=== PATIENT | male | born 1950 | race Caucasian/White ===

== ENCOUNTER 2024-01-30 19:19 | Observation (INO) | payer MEDICARE, BC, SELFPAY ==
[2024-01-30 19:20] VITALS: BMI 33.0
[2024-01-30 19:59] VITALS: BP 128/84; PULSE 90; RESP 19; TEMP 36.8; O2SAT 98
--- NOTE | 2024-01-30 20:11 | XR_ITS ---
Examination: CT abdomen with intravenous contrast CT pelvis with intravenous contrast 2-D coronal reconstructions 2-D sagittal reconstructions Date and time of exam:January 31, 2024 0048 hrs. Indications: Constipation, no bowel movement 10 days, with abdominal pain 10 days. CTDI: vol (mGy) 13.5 DLP: (mGycm) 797 Technique: Multiple axial sections of the abdomen and pelvis have been obtained. 64 slice high-resolution scanner used. 3 mm axial sections have been obtained, post intravenous injection 60 cc Isovue-370 2-D sagittal, coronal reconstructions obtained. Low dose protocols were performed. One or more of the following dose reduction techniques were used; automated exposure control, adjustment of the mA and/or KV according to patient size, use of iterative reconstruction technique. Findings: Hepatomegaly 20 cm No focal liver or splenic lesion Contracted gallbladder No pancreatic or adrenal mass Mild bilateral renal parenchymal scar formation Bilateral renal cysts, the largest anterior lower pole left kidney 9.8 cm Mild dilatation left renal pelvis No hydronephrosis or ureteral calculi Abundant stool throughout the colon No pericecal inflammatory change A few loops of fluid distended small bowel in the right lower abdomen for instance image 101 Colonic diverticulosis, no diverticulitis Mild thickening of the rectal wall axial image 187 Transverse prostate dimension 4.9 cm Urinary bladder is contracted around a Randolph catheter, urinary bladder wall thickening at least 8 mm Prominent osteopenia Impression: Mild dilatation left renal pelvis, consider left urinary tract infection No renal or ureteral calculi, no hydronephrosis Abundant stool throughout the entire colon with thickening of the rectal wall which may be related to proctitis, but clinical correlation advised Urinary bladder is contracted, the urinary bladder wall measuring up to 8 mm, consider cystitis, early urinary tract outflow obstruction secondary to prostatomegaly
--- NOTE | 2024-01-30 20:13 | PD.EDRME ---
Rapid Medical Screening Exam RME Arrival date/time: 01/30/24 19:19 73M with history of HTN and DM presents to ED with 1.5 weeks of no BM (abnormal for patient) and ab pain, as well as 1 day of urinary retention. Patient had recent EGD/colonoscopy showing H. pylori. Colonoscopy normal. Chief Complaint: Abdominal Pain Vital signs: Vital Signs Temperature 98.2 F 01/30/24 19:59 Pulse Rate 90 01/30/24 19:59 Respiratory Rate 19 01/30/24 19:59 Blood Pressure 128/84 01/30/24 19:59 Pulse Oximetry (%) 98 01/30/24 19:59 Oxygen Delivery Method Room Air 01/30/24 19:59
[2024-01-30 20:38] LABS: Basophils % (Auto) 1 % (0-2.5); Eosinophils # (Auto) 0.1 Thou/mm3 (0.0-0.5); Eosinophils % (Auto) 2 % (0-10); Hematocrit 41.2 % (41.0-53.0); Hemoglobin 13.8 g/dL (13.5-16.0); Immature Granulocytes % (Auto) 5 % (0-0); Immature Granulocytes Auto 0.21 Thou/mm3 (0.00-0.00); Lymphocytes # (Auto) 1.1 Thou/mm3 (1.0-4.8); Lymphocytes % (Auto) 23 % (10-50); Mean Corpuscular HGB Conc 33.5 g/dl (31.0-37.0); Mean Corpuscular Volume 84 fL (80-100); Monocytes # (Auto) 0.5 Thou/mm3 (0.0-0.8); Monocytes % (Auto) 12 % (0-12); Neutrophils # (Auto) 2.6 Thou/mm3 (1.8-7.7); Neutrophils % (Auto) 58 % (37-80); Nucleated Red Blood Cell % 0 /100 WBC (0); Platelet Count 132 Thou/mm3 (140-440); RDW Standard Deviation 44.9 fL (35.1-43.9); Red Blood Count 4.92 Miln/mm3 (4.50-5.90); White Blood Count 4.5 Thou/mm3 (3.8-10.6)
[2024-01-30 21:05] LABS: Alanine Aminotransferase 37 U/L (10-49); Albumin, Serum 4.9 gm/dL (3.4-4.8); Albumin/Globulin Ratio 1.9 (1.2-2.2); Alkaline Phosphatase 96 U/L (46-116); Anion Gap 9 (7-16); Aspartate Amino Transferase 34 U/L (0-34); BUN/Creatinine Ratio 22 Ratio (12-20); Bilirubin,Total 0.7 mg/dL (0.3-1.2); Blood Urea Nitrogen 24 mg/dL (9-23); Calcium 10.7 mg/dL (8.3-10.6); Calcium (Corrected) 10.7 mg/dL (8.5-10.1); Carbon Dioxide 26.1 mMol/L (20.0-31.0); Chloride 102 mMol/L (98-107); Creatinine (Component) 1.1 mg/dL (0.6-1.3); Estimated Creatinine Clearance 74.5 mL/min (>60); Globulin 2.6 gm/dL (2.3-3.5); Glucose 133 mg/dL (74-106); Lipase 25 U/L (12-53); Osmolality,Calculated 279 (275-295); Potassium 4.5 mMol/L (3.4-5.1); Sodium 137 mMol/L (136-145); Total Protein 7.5 gm/dL (5.7-8.2); eGFR > 60 See Note
[2024-01-30 22:59] VITALS: BP 122/76; PULSE 97; RESP 19; TEMP 36.8; O2SAT 98
[2024-01-30 23:37] LABS: Collection Type, Urine Catheter; Squamous Epithelial Cell,Urine 0 /hpf (0-5)
[2024-01-30 23:48] LABS: Bilirubin,Urine Negative (Negative); Blood,Urine Negative (Negative); Clarity,Urine Clear (Clear/Hazy); Color,Urine Yellow (Lt Yel-Yel); Culture Indicated,Urine Not Indicated; Glucose, Urine Negative (Negative); Ketones,Urine Trace (Negative); Leukocyte Esterase,Urine Negative (Negative); Nitrite,Urine Negative (Negative); Protein,Urine 1+ (Neg - Trace); RBC,Urine 3 /hpf (0-3); Specific Gravity,Urine 1.023 (1.001-1.035); Urobilinogen,Urine Negative mg/dL (0.0-1.0); WBC,Urine 1 /hpf (0-5)
[2024-01-31] VITALS (11 sets, daily range): BP systolic 106–132; BP diastolic 61–80; PULSE 73–98; RESP 18–20; TEMP 36.4–36.9; O2SAT 93–96; BMI 32.1
[2024-01-31] MEDS: SODIUM CHLORIDE 0.9% 1000 ML 1,000 ML 500 ML IV (02:17)
--- NOTE | 2024-01-31 03:09 | PRELIM_ITS ---
CT scan of the abdomen and pelvis with intravenous contrast (axial sections with sagittal and coronal reformats) January 31, 2024 0043 hoursClinical History: No BM 1.5 weeks; gen abdominal pain.Compari son: None.Findings:The lung bases are clear. Small hiatus hernia.The liver, gallbladder, pancreas, sp kimberlee, and adrenals are unremarkable. Left renal simple cyst. No hydronephrosis.No evidence of bowel o bstruction. No evidence of appendicitis. There is no mesenteric or retroperitoneal adenopathy. Fecal loading.Randolph catheter in place. Prominent urinary bladder wall. There is no free fluid or free air.D egenerative changes of the imaged portions of the spine. No acute fractures. Impression:1. Fecal load ing throughout the colon.2. Possible cystitis.3. Small hiatal hernia. Report Electronically Signed By : Tyrell Lindsay 01/31/2024 3:08:54 AM [EST]
--- NOTE | 2024-01-31 03:50 | PD.EDABDPN ---
ED Abdominal Pain RME/HPI General Chief Complaint: Abdominal Pain Stated complaint: NO BM IN A WEEK AND A HALF, ABD PAIN Arrival date/time: 01/30/24 19:19 RME / HPI RME / HPI narrative: 01/30/24 19:19 73M with history of HTN and DM presents to ED with 1.5 weeks of no BM (abnormal for patient) and ab pain, as well as 1 day of urinary retention. Patient had recent EGD/colonoscopy showing H. pylori. Colonoscopy normal. Patient presented to the emergency department, accompanied by his . Patient is here for having no bowel movement in 10 days. He feels constipated. And rectal pain. And also unable to urinate. He has no fever. No vomiting. No diarrhea. No bleeding. Past medical history is diabetic, chronic left lower lobe nodule, he states that he had a endoscopy that show H. pylori and normal colonoscopy. And that was done recently. Related Data Home Medications ?Medication ?Instructions ?Recorded ?Confirmed rosuvastatin 10 mg tablet (Crestor) 10 mg PO DAILY #0 tabs 08/27/16 12/31/23 meloxicam 15 mg tablet 15 mg PO QDAY 02/23/18 12/31/23 albuterol sulfate 90 mcg/actuation 2 puff inhalation Q6H PRN Wheezing 06/02/18 12/31/23 aerosol inhaler (ProAir HFA) amlodipine 10 mg tablet 5 mg PO DAILY 09/12/21 12/31/23 lisinopril 40 mg tablet 40 mg PO QDAY 09/12/21 12/31/23 metoprolol succinate 25 mg 50 mg PO QDAY 09/12/21 12/31/23 tablet,extended release 24 hr furosemide 20 mg tablet (Lasix) 20 mg PO 1XD 03/04/22 12/31/23 potassium chloride 10 mEq 10 meq PO QDAY 03/04/22 12/31/23 tablet,extended release cyclobenzaprine 10 mg tablet 10 mg PO QDAY 12/31/23 12/31/23 metformin 1,000 mg tablet 1,000 mg PO QDAY 12/31/23 12/31/23 oxybutynin chloride 5 mg tablet 5 mg PO QDAY 12/31/23 12/31/23 vitamin A-vitamin C-vit E-min 1 tab PO QDAY 12/31/23 12/31/23 tablet Previous Rx's ?Medication ?Instructions ?Recorded peg 3350-electrolytes 236 240 ml PO Q1H #4,000 mL 01/31/24 gram-22.74 gram-6.74 gram-5.86 gram solution (Golytely) Allergies Allergy/AdvReac Type Severity Reaction Status Date / Time clams Allergy Severe ANAPHYLAXIS Verified 01/30/24 19:20 peanut Allergy Severe ANAPHYLAXIS Verified 01/30/24 19:20 Oyster Allergy Severe ANAPHYLAXIS Uncoded 01/30/24 19:20 Review of Systems Review of Systems Narrative Review of Systems: REVIEW OF SYSTEM: GEN:? negative except mentioned in HPI HEENT:? negative except mentioned in HPI NECK:? negative except mentioned in HPI PULM:? negative except mentioned in HPI CARD:? negative except mentioned in HPI GI:? negative except mentioned in HPI MUSCULO/SKET: negative except mentioned in HPI SKIN:? negative except mentioned in HPI NEURO:? negative except mentioned in HPI PSYCH:? negative except mentioned in HPI Past Medical History Past Medical History NEUROLOGIC: Positive Head Trauma (ER VISIT AT 32 YRS OLD); Negative Neurological Disorders or Seizures CARDIAC: Positive Cardiac Arrhythmia, Peripheral Vascular Disease, Hypercholesterolemia (BORDERLINE HIGH CHOLESTEROL-TAKES CRESTOR) and Hypertension (TAKES MED); Negative Cardiac Disorders or Congestive Heart Failure RESPIRATORY: Positive Asthma (as a child, when air is smokey uses) and Sleep Apnea (Uses Cpap at night); Negative Chronic Obstructive Pulmonary Disease (COPD) GASTROINTESTINAL: Positive Gastrointestinal Disorders and Hemorrhoids GENITOURINARY: Positive Genitourinary Disorders (URINE URGENCY) and Benign Prostatic Hyperplasia; Negative Renal Disease MUSCULOSKELETAL: Positive Musculoskeletal Disorders, Arthritis and Fractures (RIGHT ARM HAD CAST DURING HIGH SCHOOL) ENT: Positive Head Trauma (ER VISIT AT 32 YRS OLD) ENDOCRINE: Positive Endocrine Disorders and Diabetes Mellitus Type 2; Negative Diabetes Mellitus Type 1 or Hypothyroidism HEMATOLOGIC: Negative Blood Disorders, Anemia, Sickle Cell Disease or Clotting Problems OTHER HISTORY: Positive Hospitalization (HOSP DUE TO CELLULITIS), Chicken Pox and Measles; Negative Shingles, Falls, Blood Transfusions, Anesthesia Reactions, Chemotherapy, Radiation Therapy or Cancer Family History FAMILY HISTORY: Positive Family Cardiac Disorders (FATHER ([place] DUE TO TRAUMA)) and Family Cancer (MOTHER OF UNKNOWN CANCER) Surgical History SURGICAL: Positive Arthroscopy (right knee) and Vasectomy Social History SMOKING STATUS: Never smoker ED Exam Narrative Physical exam: Aaox4. No acute distress O2 saturation is normal Heent:? perra. Eomi. No icteric. Neck: full rom.? No mass.? No jvd.? No lymphadenopathy Lungs:? clear, full, equal Heart:? s1s2.? Rrr.? No murmur, gallop or rub. Abd: soft, distended, nontender, no mass, no rebound or guarding, no flank tender.? No incarcerated? hernia. This examination was done after Randolph catheter was inserted by nursing staff and they got approximately 800 mL of urine. Ext:? full rom.? No deformity.? Normal csm. Neuro:?? intact cn2 to 12.? No facial droop.? No slurred speech.? No focal deficit.? Moves all 4ext Skin:? no rash.? No cellulitis.? No lesion.? No laceration Psychiatrical: no suicidal.? No homicidal.? No delusion.? No hallucinating Course Quality Measures none Orders Category Date Time Status CT Screening NOW Care 01/30/24 20:11 Active Catheter [Urinary Catheter] QS Care 01/30/24 20:12 Active Enema Administration NOW Care 01/31/24 02:44 Active Randolph to Leg Bag Routine Care 01/30/24 20:14 Ordered In and Out Catheter X1 Care 01/30/24 20:12 Active Insert IV NOW Care 01/30/24 20:[address] abdomen pelvis w con Stat Exams 01/30/24 20:11 Taken CBC Stat Lab 01/30/24 20:28 Completed CMP [Comprehensive Metabolic Panel] Stat Lab 01/30/24 20:28 Completed Lipase Stat Lab 01/30/24 20:28 Completed Urinalysis, C/S if Indicated Stat Lab 01/30/24 23:22 Completed Morphine Inj Med 01/30/24 20:11 Discontinued 5 mg IVP X1 ONE Ondansetron Inj [Zofran Inj] Med 01/30/24 20:12 Discontinued 4 mg IV X1 ONE Sodium Chloride 0.9% 1000 ml [Ns] 1,000 ml Med 01/30/24 23:30 Discontinued IV 500 mls/hr Vital Signs Vital signs: Vital Signs Temperature 98.2 F 01/30/24 19:59 Pulse Rate 90 01/30/24 19:59 Respiratory Rate 19 01/30/24 19:59 Blood Pressure 128/84 01/30/24 19:59 Pulse Oximetry (%) 98 01/30/24 19:59 Oxygen Delivery Method Room Air 01/30/24 19:59 Abdominal Pain MDM MDM Narrative MDM Narrative:: CBC unremarkable. CMP unremarkable except for BUN of 24. May have been a little bit dehydration. Urine analysis showing some dehydration. Including check for ketones. CT abdomen and pelvic reviewed by and interpreted by me as follow: Liver gallbladder pancreas spleen adrenal unremarkable. There is a big left kidney cyst. No evidence of urinary obstruction. No bowel obstruction. No periappendiceal stranding. No free air. No free fluid. There is constipation. [facility] [address] [place] [address] Telerad Preliminary Report Draft Patient: ROMAN GALVEZ. Record#: [id number] Birthdate: 1950 Age/Sex: 73 / M Location: [facility] Attending Dr: Ordering Physician: Date of Service: Procedure(s): Accession Number(s): cc: ~ CT scan of the abdomen and pelvis with intravenous contrast (axial sections with sagittal and coronal reformats) January 31, 2024 0043 hours Clinical History: No BM 1.5 weeks; gen abdominal pain. Comparison: None. Findings: The lung bases are clear. Small hiatus hernia. The liver, gallbladder, pancreas, spleen, and adrenals are unremarkable. Left renal simple cyst. No hydronephrosis. No evidence of bowel obstruction. No evidence of appendicitis. There is no mesenteric or retroperitoneal adenopathy. Fecal loading. Randolph catheter in place. Prominent urinary bladder wall. There is no free fluid or free air. Degenerative changes of the imaged portions of the spine. No acute fractures. Impression: 1. Fecal loading throughout the colon. 2. Possible cystitis. 3. Small hiatal hernia. Report Electronically Signed By: Tyrell Lindsay 01/31/2024 3:08:54 AM [EST] Dictated By: Signed By: DD/ 8 TD/TT: 01/31/24307 As mentioned earlier, the patient was given a Randolph catheter by nursing staff. From that we got approximately 800 mL of urine right away. We also giving the patient a Fleet enema and soapsuds enema. Goal is to get the patient to have a big bowel movement before the patient is discharged home. There is no surgical abdomen at this time. Patient data External records reviewed:: [facility] previous records Clinical information provided by:: family Social determinants that could affect healthcare access:: none Patient has the following chronic illnesses:: Diabetes How is presenting disease/condition affected by chronic disease/condition?: uneffected by Evaluation data The following diagnostics were reviewed and interpreted by me:: lab results and radiology exam(s) Lab and/or radiology exams considered but not ordered:: None Interpretation Summary: See [facility] Medications / Prescriptions Medications or Prescriptions considered but not ordered:: None Medication administrations:: Medication Administration History Discontinued Medications Sodium Chloride (Ns) 1,000 mls @ 500 mls/hr IV .Q2H ONE Stop: 01/31/24 01:29 Last Admin: 01/31/24 02:17 Dose: 500 mls/hr Documented By: ABHILASH Morphine Sulfate (Morphine Sulf Inj 10 Mg/Ml Vial) 5 mg IVP X1 ONE Stop: 01/30/24 20:12 Last Admin: 01/31/24 00:19 Dose: Not Given Documented By: Non-Admin Reason: Patient Refused Ondansetron HCl (Ondansetron Inj 2 Mg/Ml Inj 2 Ml) 4 mg IV X1 ONE; Protocol Stop: 01/30/24 20:13 Last Admin: 01/31/24 00:19 Dose: Not Given Documented By: RH Non-Admin Reason: Patient Refused See above Consultations Consultation(s) initiated? (list below): No Diagnosis Differential diagnosis abdominal pain: abdominal pain, constipation and small bowel obstruction Most likely diagnosis given after review of the tests above:: Constipation. Urinary retention. Admission Indicated Admission indicated?: not indicated Admission Request Was there a request for admission?: No Disposition Plan Disposition Plan: Discharge Discharge Attestation Discharge Attestation: The patient and all family members were given an opportunity to ask questions and understood the discharge instructions. Discharge instructions specifically effects, indications for sooner follow up or return to the emergency department, and the expected course of current diagnosis. Patient condition: Stable Discharge Plan Plan Patient Disposition: HOME (Self Care) Disposition Comment: Stable and improved Prescriptions/Referrals Prescriptions/Med Rec: New peg 3350-electrolytes [Golytely] 236-22.74-6.74 -5.86 gram recon soln 240 ml PO Q1H Qty: 4000 0RF Rx Instructions: until fecal effluent is clear No Action rosuvastatin [Crestor] 10 MG tablet 10 mg PO DAILY Qty: 0 albuterol sulfate [ProAir HFA] 90 mcg/actuation Hfa Aerosol Inhaler 2 puff INHALATION Q6H PRN (Reason: Wheezing) meloxicam 15 mg Tablet 15 mg PO QDAY Hold Instructions: Resume on 01/01/24. amlodipine 10 mg Tablet 5 mg PO DAILY metoprolol succinate 25 mg Tablet Extended Release 24 Hr 50 mg PO QDAY lisinopril 40 mg Tablet 40 mg PO QDAY cyclobenzaprine 10 mg tablet 10 mg PO QDAY Hold Instructions: Resume on 01/01/24. Patient Comments: TAKE 1 TABLET BY MOUTH DAILY AT BEDTIME NEEDED metformin 1,000 mg tablet 1,000 mg PO QDAY Patient Comments: TAKE 1 TABLET BY MOUTH TWICE DAILY WITH A MEAL oxybutynin chloride 5 mg tablet 5 mg PO QDAY Patient Comments: GENERIC FOR DITROPAN... TAKE 1 TABLET BY MOUTH TWICE DAILY FOR BLADDER vitamin A-vitamin C-vit E-min Tablet 1 tab PO QDAY furosemide [Lasix] 20 mg Tablet 20 mg PO 1XD potassium chloride 10 mEq Tablet Extended Release 10 meq PO QDAY Referrals: Vannesa Montes MD [Primary Care Provider] - In 1 week Problem List Clinical Impression: Constipation, Acute urinary retention Patient/Caregiver Discharge Instructions Education Materials: ED Constipation (Adult), ED Urinary Retention, Male Additional Instructions: Empty the urine leg bag when full. Liquid diet for now. GoLytely for constipation as prescribed. See your doctor or return emergency department in 3 days for Randolph removal and recheck in general. Return the emergency department immediately if fever, chills, worsening abdominal pain, no urine output Print Language: Portuguese Stand Alone Forms: Deepti Award Info., Patient Portal Info Letter
[2024-01-31] MEDS: MORPHINE SULF INJ 10 MG/ML VIAL 4 MG IVP (04:53)
--- NOTE | 2024-01-31 08:21 | PC.NURSE ---
assisted pt up to [facility]. at pts side.
--- NOTE | 2024-01-31 10:25 | PD.EDADDENDU ---
Emergency Room Addendum <Magy Tracy - Last Filed: 01/31/24 10:46> Addendum Narrative: Patient was queued for discharge by ED physician Dr. Umana. However, I was notified by the nurse that the patient after 2 fleet and 2 soapy shan edema's the patient is still having pain. I reviewed the CT results and there is stool throughout and on my rectal exam, there is no stool in the vault. 1040: I spoke with resident Dr. Ha working with Dr. Aguila. Discussed patients PMHx, HPI, ED course, exam findings, labs, and radiology results. The hospitalist agree to accept the patient for admission. RADIOLOGY Ordering Physician: Mirza Orellana PA-C Date of Service: 01/30/24 Procedure(s): CT abdomen pelvis w con Accession Number(s): [id number] cc: Humberto Jurado MD; Vannesa Montes MD; Mirza Orellana PA-C~ Examination: CT abdomen with intravenous contrast CT pelvis with intravenous contrast 2-D coronal reconstructions 2-D sagittal reconstructions Date and time of exam:January 31, 2024 0048 hrs. Indications: Constipation, no bowel movement 10 days, with abdominal pain 10 days. CTDI: vol (mGy) 13.5 DLP: (mGycm) 797 Technique: Multiple axial sections of the abdomen and pelvis have been obtained. 64 slice high-resolution scanner used. 3 mm axial sections have been obtained, post intravenous injection 60 cc Isovue-370 2-D sagittal, coronal reconstructions obtained. Low dose protocols were performed. One or more of the following dose reduction techniques were used; automated exposure control, adjustment of the mA and/or KV according to patient size, use of iterative reconstruction technique. Findings: Hepatomegaly 20 cm No focal liver or splenic lesion Contracted gallbladder No pancreatic or adrenal mass Mild bilateral renal parenchymal scar formation Bilateral renal cysts, the largest anterior lower pole left kidney 9.8 cm Mild dilatation left renal pelvis No hydronephrosis or ureteral calculi Abundant stool throughout the colon No pericecal inflammatory change A few loops of fluid distended small bowel in the right lower abdomen for instance image 101 Colonic diverticulosis, no diverticulitis Mild thickening of the rectal wall axial image 187 Transverse prostate dimension 4.9 cm Urinary bladder is contracted around a Randolph catheter, urinary bladder wall thickening at least 8 mm Prominent osteopenia Impression: Mild dilatation left renal pelvis, consider left urinary tract infection No renal or ureteral calculi, no hydronephrosis Abundant stool throughout the entire colon with thickening of the rectal wall which may be related to proctitis, but clinical correlation advised Urinary bladder is contracted, the urinary bladder wall measuring up to 8 mm, consider cystitis, early urinary tract outflow obstruction secondary to prostatomegaly Dictated By: Humberto Jurado MD Signed By: <Electronically signed by Humberto Jurado MD in OV> 01/31/24 0809 <Cyn London MD - Last Filed: 01/31/24 10:53> Addendum Narrative: Patient was queued for discharge by ED physician Dr. Umana. However, I was notified by the nurse that the patient after 2 fleet and 2 soapy shan edema's the patient is still having pain. I reviewed the CT results and there is stool throughout and on my rectal exam, there is no stool in the vault. 1040: I spoke with resident Dr. Ha working with Dr. Aguila. Discussed patients PMHx, HPI, ED course, exam findings, labs, and radiology results. The hospitalist agree to accept the patient for admission. RADIOLOGY Ordering Physician: Mirza Orellana PA-C Date of Service: 01/30/24 Procedure(s): CT abdomen pelvis w con Accession Number(s): [id number] cc: Humberto Jurado MD; Vannesa Montes MD; Mirza Orellana PA-C~ Examination: CT abdomen with intravenous contrast CT pelvis with intravenous contrast 2-D coronal reconstructions 2-D sagittal reconstructions Date and time of exam:January 31, 2024 0048 hrs. Indications: Constipation, no bowel movement 10 days, with abdominal pain 10 days. CTDI: vol (mGy) 13.5 DLP: (mGycm) 797 Technique: Multiple axial sections of the abdomen and pelvis have been obtained. 64 slice high-resolution scanner used. 3 mm axial sections have been obtained, post intravenous injection 60 cc Isovue-370 2-D sagittal, coronal reconstructions obtained. Low dose protocols were performed. One or more of the following dose reduction techniques were used; automated exposure control, adjustment of the mA and/or KV according to patient size, use of iterative reconstruction technique. Findings: Hepatomegaly 20 cm No focal liver or splenic lesion Contracted gallbladder No pancreatic or adrenal mass Mild bilateral renal parenchymal scar formation Bilateral renal cysts, the largest anterior lower pole left kidney 9.8 cm Mild dilatation left renal pelvis No hydronephrosis or ureteral calculi Abundant stool throughout the colon No pericecal inflammatory change A few loops of fluid distended small bowel in the right lower abdomen for instance image 101 Colonic diverticulosis, no diverticulitis Mild thickening of the rectal wall axial image 187 Transverse prostate dimension 4.9 cm Urinary bladder is contracted around a Randolph catheter, urinary bladder wall thickening at least 8 mm Prominent osteopenia Impression: Mild dilatation left renal pelvis, consider left urinary tract infection No renal or ureteral calculi, no hydronephrosis Abundant stool throughout the entire colon with thickening of the rectal wall which may be related to proctitis, but clinical correlation advised Urinary bladder is contracted, the urinary bladder wall measuring up to 8 mm, consider cystitis, early urinary tract outflow obstruction secondary to prostatomegaly Dictated By: Humberto Jurado MD Signed By: <Electronically signed by Humberto Jurado MD in OV> 01/31/24 0809
--- NOTE | 2024-01-31 11:55 | ESHP_ITS ---
Documentation for date of: 01/31/24 [facility] History of Present Illness Chief complaint: No bowel movement in 10 days; no urination in 1 day s/p colonoscopy History of present illness: HPI: This is a very pleasant 73 year old Male, with PMHx of HTN, DM, and bilateral lower quadrant abdominal pain who came to the ED 15 hours ago because of 1 day of urinary retention and 10 days of constipation. Patient claimed that he had an endoscopy and a colonoscopy earlier in the month with Dr. Ramírez. Patient endorsed no changes in diet and no travel history. He also has not taken any opoid medications within the last month reportedly. He also says he has not passed gas as well in the last ten days. Patient also has a history of hemorrhoids and lower left lung nodule. He denies any nausea, fever, vomitting or diarrhea in the recent past. ED Course: Patient arrived to the ED with vitals of Temperature of 98, pulse of 84, RR of 18, BP of 119/67, and satting at 93% on room air.?Patient had a Randolph cathether inserted which drained 800 mL of urine. Patient had a CBC, CMP and UA ordered as well. Patient's abnormal lab findings in the ED include a platelet count of 132, glucose level of 133, calcium level of 10.7 and albumin level of 4.9. The urinalysis was negative for infection. Patient also had a lipase ordered which was 25. Patient had a CT abdomen pelvis which revealed a big left kidney cyst, fecal loading throughout the colon, possible cystitis, and a small hiatal hernia. Patient was given 1 dose of Morphine 5 mg IVP, ondanestron 4 mg IV for nausea, and 2 enemas in the ED. Patient was given a Fleet enema and a soaps sude enema. Admission: Patient was admitted at noon on 01/30. Patient had been in the ED for [address] Ramírez was consulted who recommended GoLytely solution for future imaging. There was also a discussion to give patient a pro-motilin agent like Erythromyocin. Review of Systems Review of Systems Narrative Review of Systems: GEN:? negative except mentioned in HPI HEENT:? negative except mentioned in HPI NECK:? negative except mentioned in HPI PULM:? negative except mentioned in HPI CARD:? negative except mentioned in HPI GI:? + for constipation MUSCULO/SKET: negative except mentioned in HPI SKIN:? negative except mentioned in HPI NEURO:? negative except mentioned in HPI PSYCH:? negative except mentioned in HPI Past Medical History Past Medical History NEUROLOGIC: Positive Head Trauma (ER VISIT AT 32 YRS OLD); Negative Neurological Disorders or Seizures CARDIAC: Positive Cardiac Arrhythmia, Peripheral Vascular Disease, Hypercholesterolemia (BORDERLINE HIGH CHOLESTEROL-TAKES CRESTOR) and Hypertension (TAKES MED); Negative Cardiac Disorders or Congestive Heart Failure RESPIRATORY: Positive Asthma (as a child, when air is smokey uses) and Sleep Apnea (Uses Cpap at night); Negative Chronic Obstructive Pulmonary Disease (COPD) GASTROINTESTINAL: Positive Gastrointestinal Disorders and Hemorrhoids GENITOURINARY: Positive Genitourinary Disorders (URINE URGENCY) and Benign Prostatic Hyperplasia; Negative Renal Disease MUSCULOSKELETAL: Positive Musculoskeletal Disorders, Arthritis and Fractures (RIGHT ARM HAD CAST DURING HIGH SCHOOL) ENT: Positive Head Trauma (ER VISIT AT 32 YRS OLD) ENDOCRINE: Positive Endocrine Disorders and Diabetes Mellitus Type 2; Negative Diabetes Mellitus Type 1 or Hypothyroidism HEMATOLOGIC: Negative Blood Disorders, Anemia, Sickle Cell Disease or Clotting Problems OTHER HISTORY: Positive Hospitalization (HOSP DUE TO CELLULITIS), Chicken Pox and Measles; Negative Shingles, Falls, Blood Transfusions, Anesthesia Reactions, Chemotherapy, Radiation Therapy or Cancer Family History FAMILY HISTORY: Positive Family Cardiac Disorders (FATHER (HI DUE TO TRAUMA)) and Family Cancer (MOTHER OF UNKNOWN CANCER) Surgical History SURGICAL: Positive Arthroscopy (right knee) and Vasectomy Social History SMOKING STATUS: Never smoker Exam Vital Signs Temp Pulse Resp BP Pulse Ox O2 Del Method 97.5 F 78 20 106/61 93 L Room Air 01/31/24 09:54 01/31/24 09:54 01/31/24 09:54 01/31/24 09:54 01/31/24 09:54 01/31/24 09:54 Narrative Exam Aaox4. No acute distress O2 saturation is normal Heent:? perra. Eomi. No icteric. Neck: full rom.? No mass.? No jvd.? No lymphadenopathy Lungs:? clear, full, equal Heart:? s1s2.? Rrr.? No murmur, gallop or rub. Abd: soft, distended, tender in the lower quadrants, no mass, no rebound or guarding, no flank tender.? No incarcerated hernia.? This examination was done after Randolph catheter was inserted by nursing staff and they got approximately 8 00 mL of urine. Ext:? full rom.? No deformity.? Normal csm. Neuro: ? intact cn2 to 12.? No facial droop.? No slurred speech.? No focal deficit.? Moves all 4ext Skin:? no rash.? No cellulitis.? No lesion.? No laceration Psychiatrical: no suicidal.? No homicidal.? No delusion.? No hallucinating Results: Labs 02/01/24 05:05 02/01/24 05:05 Labs: Short CBC 01/30/24 Range/Units 20:28 WBC 4.5 (3.8-10.6) Thou/mm3 Hgb 13.8 (13.5-16.0) g/dL Hct 41.2 (41.0-53.0) % Plt Count 132 L (140-440) Thou/mm3 BMP 01/30/24 20:28 Sodium 137 Potassium 4.5 Chloride 102 Carbon Dioxide 26.1 BUN 24 H Creatinine 1.1 Glucose 133 H Calcium 10.7 H Liver Function 01/30/24 Range/Units 20:28 Total Bilirubin 0.7 (0.3-1.2) mg/dL AST 34 (0-34) U/L ALT 37 (10-49) U/L Alkaline Phosphatase 96 (46-116) U/L Albumin 4.9 H (3.4-4.8) gm/dL Urine 01/30/24 Range/Units 23:22 Urine Color Yellow (Lt Yel-Yel) Urine Clarity Clear (Clear/Hazy) Urine pH 6.0 (5.0-7.0) Ur Specific [place] 1.023 (1.001-1.035) Urine Protein 1+ A (Neg - Trace) Urine Glucose (UA) Negative (Negative) Quality Measures Quality Measures none Advance care planning discussed with:: patient Medications Home Medications and Allergies Home Medications ?Medication ?Instructions ?Recorded ?Confirmed ?Type rosuvastatin 10 mg tablet (Crestor) 10 mg PO DAILY #0 tabs 08/27/16 01/31/24 History meloxicam 15 mg tablet 15 mg PO QDAY 02/23/18 01/31/24 History amlodipine 10 mg tablet 5 mg PO DAILY 09/12/21 01/31/24 History lisinopril 40 mg tablet 40 mg PO QDAY 09/12/21 01/31/24 History metoprolol succinate 25 mg 50 mg PO QDAY 09/12/21 01/31/24 History tablet,extended release 24 hr furosemide 20 mg tablet (Lasix) 20 mg PO 1XD 03/04/22 01/31/24 History potassium chloride 10 mEq 10 meq PO QDAY 03/04/22 01/31/24 History tablet,extended release cyclobenzaprine 10 mg tablet 10 mg PO QDAY 12/31/23 01/31/24 History metformin 1,000 mg tablet 1,000 mg PO QDAY 12/31/23 01/31/24 History oxybutynin chloride 5 mg tablet 5 mg PO QDAY 12/31/23 01/31/24 History vitamin A-vitamin C-vit E-min 1 tab PO QDAY 12/31/23 01/31/24 History tablet Allergies Allergy/AdvReac Type Severity Reaction Status Date / Time clams Allergy Severe ANAPHYLAXIS Verified 01/30/24 19:20 peanut Allergy Severe ANAPHYLAXIS Verified 01/30/24 19:20 Oyster Allergy Severe ANAPHYLAXIS Uncoded 01/30/24 19:20 Visit Medications Heparin Sodium (Porcine) (Heparin Sod Inj 5000 Unit/Ml Vial) 5,000 unit SC Q12H [facility] Stop: 02/14/24 11:59 Sodium Chloride (Ns) 1,000 mls @ 75 mls/hr IV .[id number] MARSHAL Stop: 02/01/24 01:19 Ondansetron HCl (Ondansetron Inj 2 Mg/Ml Inj 2 Ml) 4 mg IV Q6H PRN; Protocol PRN Reason: NAUSEA OR VOMITING Stop: 03/01/24 11:46 Discontinued Medications Sodium Chloride (Ns) 1,000 mls @ 500 mls/hr IV .Q2H ONE Stop: 01/31/24 01:29 Last Infusion: 01/31/24 04:32 Dose: Infused Morphine Sulfate (Morphine Sulf Inj 10 Mg/Ml Vial) 5 mg IVP X1 ONE Stop: 01/30/24 20:12 Last Admin: 01/31/24 00:19 Dose: Not Given Morphine Sulfate (Morphine Sulf Inj 10 Mg/Ml Vial) 4 mg IVP X1 ONE Stop: 01/31/24 04:20 Last Admin: 01/31/24 04:53 Dose: 4 mg Ondansetron HCl (Ondansetron Inj 2 Mg/Ml Inj 2 Ml) 4 mg IV X1 ONE; Protocol Stop: 01/30/24 20:13 Last Admin: 01/31/24 00:19 Dose: Not Given Polyethylene Glycol/Electrolytes (Na [place]/Nahco3/Kj/Peg (Golytely) 4,000 Ml Btl) 4,000 ml PO X1 ONE Stop: 01/31/24 11:48 Assessment & Plan Plan Assessment: This is a very pleasant 73 year old Male, with PMHx of HTN, DM, and bilateral lower quadrant abdominal pain who came to the ED 15 hours ago because of 1 day of urinary retention and 10 days of constipation secondary to possible prostatic compression of the bladder compressing the colon vs constipation vs colonic mass. #Constipation of 10 days #BPH (bladder distension, pressure) vs General Constipation vs Colonic Mass ddx: Patient had colonoscopy and endoscopy earlier in January. Patient has not had any flatulence. Patient normally has a bowel movement once every 3-4 days. Plan: -patient should remain NPO for GoLytely, later imaging. -Dr. Ramírez was consulted. Patient knows Dr. Ramírez from past endosopy / colonoscopy -Check Electrolytes every morning (Mag, Phosph in particular) -CMP every morning -Sodium Chloride 0.9% 1000 mL at IV 75 mL / hour for hydration -GoLytely solution for subsequent imaging -Flomax for BPH and follow with urology outpatient -dc if patient has a bowel movement #Urinary Retention #Possible cystitis ddx: Patient has had urinary retention for the last 1 day. Plan: -keep Randolph. First insertion of Randolph removed 800 mL of fluid. -Hydration with fluids + NA HINTON / NAHCO3 / KJ -possible cystoscopy if issue has chronicity -I and O cathether -urinalysis (negative) #T2DM Non Insulin Dependent ddx: A1c earlier in the year 9.0, currently 6.4. ED glucose was 133. Plan: -monitor glucose levels -if >180, consider SSI and insulin ACQS (pt NPO right now) #HTN ddx: BP of 128/84 on admission (normotensive). Plan: -monitor and continue home medication Lisinopril 40 #HLD ddx: Diagnosed last year. Plan: -continue home medication (rosuvastatin) Health Maintenance Disposition: Observation DVT prophylaxis: Heparin subcut GI prophylaxis: GoLytely Diet: NPO Lines: PIV CODE STATUS: Full I discussed the patient with Dr. Ha, my senior resident, and my attending Dr. Aguila. Richie Toro OMS-4 [facility] Medical Student Attending Provider Attestation/Addendum I reviewed labs, imaging, EKG, home medications and prior available records. Face to face evaluation was performed by me. I have personally examined the patient and discussed assessment and plan with the IM team. I reviewed the resident note and agree with the plan with exceptions as below. 73-year-old male with history of hypertension and hyperlipidemia who presented with a chief complaint of constipation and difficulty urinating. He was found to have acute urinary retention. Constipation: Possibly due to the acute retention. Patient does have a renal cyst that is large however it appears to be stable in size which does not explain the acute constipation. Patient had a recent colonoscopy that showed no masses. Started the patient on GoLytely. Consult ID for further guidance. Monitor for bowel movements. Acute urinary retention: Status post Randolph catheter. Started the patient on Flomax. Voiding trial after 24 hours.
--- NOTE | 2024-01-31 12:44 | PC.NURSE ---
report called to Alea HAWKINS
[2024-01-31] MEDS: SODIUM CHLORIDE 0.9% 1000 ML 1,000 ML 75 ML IV (14:04)
[2024-01-31] MEDS: NA SU/NAHCO3/KC/PEG (Golytely) 4,000 ML BTL 4000 ML PO (14:04)
[2024-01-31] MEDS: HEPARIN SOD INJ 5000 UNIT/ML VIAL SC (14:04)
[2024-01-31] MEDS: TAMSULOSIN HCL 0.4 MG CAPSULE PO (15:47)
--- NOTE | 2024-01-31 19:04 | ESCONSULT_ITS ---
HPI Data of Consult Requesting Physician: Ernesto Aguila MD Primary Care Provider: Vannesa Montes MD Consult Narrative Reason for consult: Pain abdomen, abnormal CTAP History of present illness: 73 years of male came to the emergency room because he had not had a bowel movement for a week and a half Patient got a lot of stuff done in the ER including soapsuds enemas No response Rectal vault was empty on rectal disease examination But CT scan of the abdomen pelvis with contrast showed stool throughout the colon with thickening of the wall of the rectum Colonoscopy 12/31/2023 showed mild to moderate diverticulosis involving sigmoid and descending colon Upper endoscopy showed gastritis and esophagitis Patient does have chronic thrombocytopenia hepatosplenomegaly and is followed at [facility] for chronic liver disease cc:: cc: Ernesto Aguila MD Review of Systems Review of Systems Systems Reviewed: All systems reviewed, normal except as documented Past Medical History Surgical History OTHER SURGICAL HX: As in the history of present illness Meds Home Medications and Allergies Home Medications ?Medication ?Instructions ?Recorded ?Confirmed ?Type rosuvastatin 10 mg tablet (Crestor) 10 mg PO DAILY #0 tabs 08/27/16 01/31/24 History meloxicam 15 mg tablet 15 mg PO QDAY 02/23/18 01/31/24 History amlodipine 10 mg tablet 5 mg PO DAILY 09/12/21 01/31/24 History lisinopril 40 mg tablet 40 mg PO QDAY 09/12/21 01/31/24 History metoprolol succinate 25 mg 50 mg PO QDAY 09/12/21 01/31/24 History tablet,extended release 24 hr furosemide 20 mg tablet (Lasix) 20 mg PO 1XD 03/04/22 01/31/24 History potassium chloride 10 mEq 10 meq PO QDAY 03/04/22 01/31/24 History tablet,extended release cyclobenzaprine 10 mg tablet 10 mg PO QDAY 12/31/23 01/31/24 History metformin 1,000 mg tablet 1,000 mg PO QDAY 12/31/23 01/31/24 History oxybutynin chloride 5 mg tablet 5 mg PO QDAY 12/31/23 01/31/24 History vitamin A-vitamin C-vit E-min 1 tab PO QDAY 12/31/23 01/31/24 History tablet Allergies Allergy/AdvReac Type Severity Reaction Status Date / Time clams Allergy Severe ANAPHYLAXIS Verified 01/30/24 19:20 peanut Allergy Severe ANAPHYLAXIS Verified 01/30/24 19:20 Oyster Allergy Severe ANAPHYLAXIS Uncoded 01/30/24 19:20 Exam Vital Signs Temp Pulse Resp BP Pulse Ox O2 Del Method 98.3 F 91 18 130/79 95 Room Air 01/31/24 16:00 01/31/24 16:00 01/31/24 16:00 01/31/24 16:00 01/31/24 16:00 01/31/24 16:00 Constitutional Comments: Alert oriented Routine Respiratory Exam Comments: Normal to auscultation Routine Abdominal Exam Comments: Distended nontender positive bowel sounds Results Labs 01/30/24 20:28 01/30/24 20:28 Labs: Short CBC 01/30/24 Range/Units 20:28 WBC 4.5 (3.8-10.6) Thou/mm3 Hgb 13.8 (13.5-16.0) g/dL Hct 41.2 (41.0-53.0) % Plt Count 132 L (140-440) Thou/mm3 BMP 01/30/24 20:28 Sodium 137 Potassium 4.5 Chloride 102 Carbon Dioxide 26.1 BUN 24 H Creatinine 1.1 Glucose 133 H Calcium 10.7 H Liver Function 01/30/24 Range/Units 20:28 Total Bilirubin 0.7 (0.3-1.2) mg/dL AST 34 (0-34) U/L ALT 37 (10-49) U/L Alkaline Phosphatase 96 (46-116) U/L Albumin 4.9 H (3.4-4.8) gm/dL Urine 01/30/24 Range/Units 23:22 Urine Color Yellow (Lt Yel-Yel) Urine Clarity Clear (Clear/Hazy) Urine pH 6.0 (5.0-7.0) Ur Specific [place] 1.023 (1.001-1.035) Urine Protein 1+ A (Neg - Trace) Urine Glucose (UA) Negative (Negative) Assessment and Plan Additional Assessment & Plan Additional Plan: # Stool impaction causing abdominal bloating and discomfort Plan Case discussed with internal medicine team Imtiazyteemanuel Flush the colon out No need for any invasive GI workup Will follow the patient Other medical problems include # Essential hypertension # Diabetes mellitus type 2 # Hyperlipidemia # Thrombocytopenia due to chronic liver disease Followed at [facility] Thank you very much for the opportunity to participate in the care of this patient
[2024-02-01] VITALS: BP 117/72; PULSE 93; RESP 17; TEMP 36.3; O2SAT 97
[2024-02-01 04:00] VITALS: BP 114/72; PULSE 94; RESP 17; TEMP 36.5; O2SAT 95
[2024-02-01 05:59] LABS: Basophils % (Auto) 1 % (0-2.5); Eosinophils # (Auto) 0.1 Thou/mm3 (0.0-0.5); Eosinophils % (Auto) 2 % (0-10); Hematocrit 34.9 % (41.0-53.0); Hemoglobin 11.7 g/dL (13.5-16.0); Immature Granulocytes % (Auto) 2 % (0-0); Immature Granulocytes Auto 0.04 Thou/mm3 (0.00-0.00); Lymphocytes # (Auto) 1.2 Thou/mm3 (1.0-4.8); Lymphocytes % (Auto) 56 % (10-50); Mean Corpuscular HGB Conc 33.5 g/dl (31.0-37.0); Mean Corpuscular Hemoglobin 28.5 pg (25.0-35.0); Mean Corpuscular Volume 85 fL (80-100); Monocytes # (Auto) 0.3 Thou/mm3 (0.0-0.8); Monocytes % (Auto) 15 % (0-12); Neutrophils # (Auto) 0.5 Thou/mm3 (1.8-7.7); Neutrophils % (Auto) 24 % (37-80); Nucleated Red Blood Cell % 0 /100 WBC (0); Platelet Count 98 Thou/mm3 (140-440); RDW Standard Deviation 46.5 fL (35.1-43.9)
[2024-02-01 06:05] LABS: White Blood Count 2.1 Thou/mm3 (3.8-10.6)
[2024-02-01 06:31] LABS: Alanine Aminotransferase 24 U/L (10-49); Alkaline Phosphatase 77 U/L (46-116); Anion Gap 11 (7-16); Aspartate Amino Transferase 22 U/L (0-34); BUN/Creatinine Ratio 16 Ratio (12-20); Bilirubin,Total 0.9 mg/dL (0.3-1.2); Blood Urea Nitrogen 13 mg/dL (9-23); Calcium 9.3 mg/dL (8.3-10.6); Calcium (Corrected) 9.3 mg/dL (8.5-10.1); Carbon Dioxide 25.3 mMol/L (20.0-31.0); Chloride 108 mMol/L (98-107); Creatinine (Component) 0.8 mg/dL (0.6-1.3); Estimated Creatinine Clearance 104.1 mL/min (>60); Glucose 98 mg/dL (74-106); Magnesium 1.6 mg/dL (1.6-2.6); Osmolality,Calculated 286 (275-295); Phosphorous 3.8 mg/dL (2.4-5.1); Potassium 3.4 mMol/L (3.4-5.1); Sodium 144 mMol/L (136-145); eGFR > 60 See Note
[2024-02-01 07:59] VITALS: BP 112/68; PULSE 88; RESP 18; TEMP 36.5; O2SAT 94
[2024-02-01] MEDS: TAMSULOSIN HCL 0.4 MG CAPSULE PO (08:25)
--- NOTE | 2024-02-01 10:49 | PC.SS ---
SS contacted patient's , Teri Padilla via phone; Patient's confirmed information on demographics and reports patient lives at home with her. Per patient's prior to admission patient was able to complete ADL's independently and did not utilize any source of DME to assist with ambulation. Patient's reports the patient's PCP is Vannesa Montes.The patient's pharmacy is [facility]. At time of discharge reports patient will return back home and she will provide transportation. Next of Kin: , Teri Padilla [phone] Discharge Plan: home PCP: Vannesa Montes
--- NOTE | 2024-02-01 10:51 | PC.NURSE ---
Per okay to remove mosher and do void trial. Once patient voids he is okay to discharge
--- NOTE | 2024-02-01 11:39 | ESDS_ITS ---
<Statement entered by Baltazar Perez DO - 02/01/24 20:50> Senior attestation: Patient was examined and case was reviewed with team including attending physician. Note reviewed, I agree with most of its contents and agree with the patient's care. Baltazar Perez DO PGY-3 Planned Discharge Date 02/01/24 DS: Providers Provider Date of admission: 01/31/24 11:46 Primary care physician: Vannesa Montes MD Admitting Provider: Ernesto Aguila MD Attending Provider on Admission: Ernesto Aguila MD Consults: 01/31/24 11:48 Consult to Gastroenterology Stat Comment: constipation Consulting Provider: Greg Ramírez 01/31/24 13:19 Health Equity Referral - Knowledge Deficit Routine Comment: Positive screening for knowledge deficit needs. Attending Provider on DC: Ernesto Aguila MD Discharging Provider: Ernesto Aguila MD DS: Diagnosis Problem List Completed Was Problem List Reviewed/Reconciled?: Yes Hospital Course Hospital Course Hospital course: 73-year-old male with past medical history of hypertension, diabetes, thrombocytopenia, and chronic liver disease was admitted to the hospital for constipation and urinary retention. In ED patient complaining of inability to pass stools or urinate around 10 days prior to admission. Initially was normotensive and afebrile. Initial labs were relevant for thrombocytopenia, mild hypocalcemia, and proteinuria. Initial imaging included abdomen/pelvis CT which showed mild dilation of left renal pelvis, prostatic megaly and abundant stool throughout the entire colon with thickening of the rectal wall. Patient had previously seen a GI specialist who had performed a colonoscopy 1 month prior to admission and this colonoscopy only showed hemorrhoids with some diverticulosis. GI was consulted and recommended GoLytely, but no colonoscopy at this time. Patient received IV fluids, GoLytely, Flomax, and had a Mosher catheter placed during his hospital stay. On the night of admission patient passed a large bowel movement with relief of abdominal discomfort. Patient was eager to be discharged and voiding trial was done. At the time of discharge patient was clinically stable to be discharged home. Discharge plan: Follow up with PCP within 1 week Follow up with urology referral from PCP if needed Flomax prescribed Use over the counter constipation medications as needed Problem list: #Constipation #BPH #Prostatomegaly #Urinary retention #Hemorrhoids #Diverticulosis #Hx of DM2 #Hx of HTN #Hx of HLD #Hx of thrombocytopenia #Chronic liver disease Case disclosed with Attending Dr. Aguila and My senior Dr. Perez PGY3. Luca Boucher PGY1 Status at Discharge Overall status at discharge: patient is progressing back to baseline Time Spent with Patient Time attestation: Total time spent providing and/or coordinating discharge services:>35 min Exam Vital Signs Temp Pulse Resp BP Pulse Ox O2 Del Method 97.7 F 88 18 112/68 94 L Room Air 02/01/24 07:59 02/01/24 07:59 02/01/24 07:59 02/01/24 07:59 02/01/24 07:59 02/01/24 07:59 Narrative Exam General: A/O x3, no acute distress Eyes: PERRL, EOMI. Anicteric, vision grossly intact. Ears: No ear pain, no ear discharge, Hearing grossly intact. Nose: No nasal discharge. Mouth/Throat: Moist mucous membranes, no redness, no lesions. Neck: short Neck, non-tender, no cervical lymphadenopathy. Lungs: Clear FADIA to auscultation and percussion, No accessory muscle use. Cardio: Normal S1/S2, regular rhythm, no murmurs, no JVD or carotid bruits. Abdomen: Soft, non-tender, no palpable masses, peristalsis present, no guarding or rebound. Extremities: Symmetrical, no significant deformities, no peripheral edema , non-tender, peripheral pulses presents. Skin: No rashes, no lesions, warm to touch. Varicose veins in FADIA LE Neuro: No focal neurological deficits. motor and sensory intact Psych: Cooperative, appropriate mood and effect. Discharge Plan Plan Patient Disposition: HOME (Self Care) Disposition Comment: DC after passing voiding trial and mosher removal Patient condition on transfer: Stable Prescriptions/Referrals Prescriptions/Med Rec: New peg 3350-electrolytes [Golytely] 236-22.74-6.74 -5.86 gram recon soln 240 ml PO Q1H Qty: 4000 0RF Rx Instructions: until fecal effluent is clear tamsulosin [Flomax] 0.4 mg capsule 0.4 mg PO QDAY 14 Days Qty: 14 0RF Continued rosuvastatin [Crestor] 10 MG tablet 10 mg PO DAILY Qty: 0 meloxicam 15 mg Tablet 15 mg PO QDAY Hold Instructions: Resume on 01/01/24. amlodipine 10 mg Tablet 5 mg PO DAILY metoprolol succinate 25 mg Tablet Extended Release 24 Hr 50 mg PO QDAY lisinopril 40 mg Tablet 40 mg PO QDAY cyclobenzaprine 10 mg tablet 10 mg PO QDAY Hold Instructions: Resume on 01/01/24. Patient Comments: TAKE 1 TABLET BY MOUTH DAILY AT BEDTIME NEEDED metformin 1,000 mg tablet 1,000 mg PO QDAY Patient Comments: TAKE 1 TABLET BY MOUTH TWICE DAILY WITH A MEAL oxybutynin chloride 5 mg tablet 5 mg PO QDAY Patient Comments: GENERIC FOR DITROPAN... TAKE 1 TABLET BY MOUTH TWICE DAILY FOR BLADDER vitamin A-vitamin C-vit E-min Tablet 1 tab PO QDAY furosemide [Lasix] 20 mg Tablet 20 mg PO 1XD potassium chloride 10 mEq Tablet Extended Release 10 meq PO QDAY Referrals: Vannesa Montes MD [Primary Care Provider] - Patient/Caregiver Discharge Instructions Discharge Activity: activity as tolerated Other Discharge Activity Instructions:: Follow up with PCP within 1 week Follow up with urology referral from PCP if needed Flomax prescribed Use over the counter constipation medications as needed Education Materials: ED Constipation (Adult), ED Urinary Retention, Male Print Language: Swazi Stand Alone Forms: Deepti Award Info., Patient Portal Info Letter, Work/Release Restrictions Discharge Order Discharge Orders: Discharge (Routine); Ordered 02/01/24 Ordered By: Baltazar Perez Quality Discharge Quality Measures VTE prophylaxis Attestestation MD Attestation I reviewed labs, imaging, EKG, home medications and prior available records. Face to face evaluation was performed by me. I have personally examined the patient and discussed assessment and plan with the IM team. I reviewed the resident note and agree with the plan with exceptions as below. Severe constipation: Likely in the setting of acute urinary retention. Resolved with GoLytely. Management of urinary retention as below. Continue constipation care as needed as outpatient. Consulted GI: No need for colonoscopy at this time. Follow-up with GI as outpatient. Acute urinary retention: Likely in setting of BPH. Status post Mosher catheter which was removed after the patient passed a voiding trial. Continue tamsulosin 0.4 mg daily. Follow-up with urology in 1 week. Thrombocytopenia: Mild. No signs of bleeding. Repeat CBC in 1 week. Time spent is 40 minutes. More than 50% of the time was spent on patient education and coordination of care.
[2024-02-01 12:00] VITALS: BP 127/73; PULSE 84; RESP 17; TEMP 36.8; O2SAT 95
--- NOTE | 2024-02-01 13:36 | PC.NURSE ---
Patient notified this rn he was able to void after mosher was removed. Per Dr.Reyes gonzalez to send patient home now.
--- NOTE | 2024-02-01 23:15 | ESPR_ITS ---
Documentation for date of: 02/01/24 Subjective Subjective Interval history: Late entry for the note Case discussed with internal medicine team Good results with the GoLytely Patient can be discharged home to be followed as an outpatient Exam Vital Signs Temp Pulse Resp BP Pulse Ox O2 Del Method 98.2 F 84 17 127/73 95 Room Air 02/01/24 12:00 02/01/24 12:00 02/01/24 12:00 02/01/24 12:00 02/01/24 12:00 02/01/24 12:00 Objective Labs 02/01/24 05:05 02/01/24 05:05 Labs: Laboratory Results - last 24 hr 02/01/24 05:05 WBC 2.1 L D RBC 4.10 L Hgb 11.7 L D Hct 34.9 L MCV 85 MCH 28.5 MCHC 33.5 RDW Std Deviation 46.5 H Plt Count 98 L D Neut % (Auto) 24 L Lymph % (Auto) 56 H [place] % (Auto) 15 H Eos % (Auto) 2 Baso % (Auto) 1 Neut # (Auto) 0.5 L Lymph # (Auto) 1.2 [place] # (Auto) 0.3 Eos # (Auto) 0.1 Baso # (Auto) 0.0 Immature Gran # (Auto) 0.04 H Absolute Nucleated RBC 0.00 Immature Gran % 2 H Nucleated RBC % 0 Sodium 144 Potassium 3.4 D Chloride 108 H Carbon Dioxide 25.3 Anion Gap 11 BUN 13 Creatinine 0.8 Estim Creat Clear Calc 104.1 eGFR > 60 BUN/Creatinine Ratio 16 Glucose 98 Calculated Osmolality 286 Calcium 9.3 Corrected Calcium 9.3 Phosphorus 3.8 Magnesium 1.6 Total Bilirubin 0.9 AST 22 ALT 24 Alkaline Phosphatase 77 Total Protein 6.0 Albumin 4.0 D Globulin 2.0 L Albumin/Globulin Ratio 2.0 Impressions Impression: # Pain abdomen # Stool impaction Good results with the GoLytely Patient can be discharged home to be followed as an outpatient Assessment & Plan A&P Narrative # Stool impaction causing abdominal bloating and discomfort Plan Case discussed with internal medicine team Yon Flush the colon out No need for any invasive GI workup Will follow the patient Other medical problems include # Essential hypertension # Diabetes mellitus type 2 # Hyperlipidemia # Thrombocytopenia due to chronic liver disease Followed at [facility] Thank you very much for the opportunity to participate in the care of this patient Time Spent With Patient Time: Total time spent is greater than 50% in coordination of care (as documented) at patient's floor/unit and/or counseling patient:
== END 2024-02-01 13:58 | disposition home or self-care (01) ==
LOC: SERX 01-31 03:55 → S3NX 02-01 10:44 → SERHOLD 02-02 14:10
PROVIDERS: Physician Assistant; Student in an Organized Health Care Education/Training Program; Admitting Provider Student in an Organized Health Care Education/Training Program; Emergency Provider Emergency Medicine; PCP Family Medicine; Visit Provider Student in an Organized Health Care Education/Training Program
DX: K56.41 Fecal impaction (principal); N40.1 Benign prostatic hyperplasia with lower urinary tract symptoms; R33.9 Retention of urine, unspecified; K57.30 Diverticulosis of large intestine without perforation or abscess without bleeding; E11.9 Type 2 diabetes mellitus without complications; I10 Essential (primary) hypertension; D69.6 Thrombocytopenia, unspecified; K76.9 Liver disease, unspecified; D69.59 Other secondary thrombocytopenia; E11.51 Type 2 diabetes mellitus with diabetic peripheral angiopathy without gangrene; E78.00 Pure hypercholesterolemia, unspecified; E83.51 Hypocalcemia; G47.30 Sleep apnea, unspecified; K20.90 Esophagitis, unspecified without bleeding; K44.9 Diaphragmatic hernia without obstruction or gangrene; M19.90 Unspecified osteoarthritis, unspecified site; N28.1 Cyst of kidney, acquired; R33.8 Other retention of urine; Z82.49 Family history of ischemic heart disease and other diseases of the circulatory system; Z86.19 Personal history of other infectious and parasitic diseases; Z87.19 Personal history of other diseases of the digestive system; E86.0 Dehydration
CPT/HCPCS: 51702; 36415; 74177; 80053; 81001; 83690; 83735; 84100; 85025; 96361; 96372; 96374; 99285; A4649; G0378; J1643; J2270; J7030; Q9967; A9270; J1644

== ENCOUNTER 2024-03-28 10:19 | Inpatient (IN) | payer MEDICARE, BC, SELFPAY ==
[2024-03-28] VITALS (56 sets, daily range): BP systolic 90–154; BP diastolic 59–92; PULSE 81–105; RESP 16–94; TEMP 37.2–39.4; O2SAT 89–100; BMI 29.4; BMI 30.6
--- NOTE | 2024-03-28 11:03 | EKG_ITS ---
[facility] Test Date: 2024-03-28 Pat Name: ROMAN GALVEZ Department: Room: - Gender: Male Skein Yarn Dyer: : 1950 Requested By: Carlo Dietrich Order Number: [id number] Reading MD: Carlo Dietrich Measurements Intervals [place] Rate: 92 P: 52 WV: 172 QRS: -19 QRSD: 105 T: 62 QT: 332 QTc: 413 Interpretive Statements SINUS RHYTHM LOW QRS VOLTAGE IN PRECORDIAL LEADS [QRS DEFLECTION < 1.0 mV IN CHEST LEADS] Compared to ECG 02/23/2018 12:20:47 Low QRS voltage now present T-wave abnormality no longer present /store/S0/[id number]/[id number].pdf
--- NOTE | 2024-03-28 11:04 | EDNOTE_ITS ---
ED General RME/HPI General Chief complaint: Weakness Stated complaint: WEAKNESS Time Seen by Provider: 03/28/24 11:02 Arrival date/time: 03/28/24 10:19 CC: Weakness HPI 3 to 4 days, patient has been noncompliant with his diabetes medicines for the last week. EMS reports stable vital signs and route patient was found on the floor of his house secondary to inability to get up off the floor after falling. Patient is awake alert oriented has no specific complaints other than a dry mouth. Related Data Home Medications ?Medication ?Instructions ?Recorded ?Confirmed rosuvastatin 10 mg tablet (Crestor) 10 mg PO DAILY #0 tabs 08/27/16 01/31/24 meloxicam 15 mg tablet 15 mg PO QDAY 02/23/18 01/31/24 amlodipine 10 mg tablet 5 mg PO DAILY 09/12/21 01/31/24 lisinopril 40 mg tablet 40 mg PO QDAY 09/12/21 01/31/24 metoprolol succinate 25 mg 50 mg PO QDAY 09/12/21 01/31/24 tablet,extended release 24 hr furosemide 20 mg tablet (Lasix) 20 mg PO 1XD 03/04/22 01/31/24 potassium chloride 10 mEq 10 meq PO QDAY 03/04/22 01/31/24 tablet,extended release cyclobenzaprine 10 mg tablet 10 mg PO QDAY 12/31/23 01/31/24 metformin 1,000 mg tablet 1,000 mg PO QDAY 12/31/23 01/31/24 oxybutynin chloride 5 mg tablet 5 mg PO QDAY 12/31/23 01/31/24 vitamin A-vitamin C-vit E-min 1 tab PO QDAY 12/31/23 01/31/24 tablet Previous Rx's ?Medication ?Instructions ?Recorded peg 3350-electrolytes 236 240 ml PO Q1H #4,000 mL 01/31/24 gram-22.74 gram-6.74 gram-5.86 gram solution (Golytely) Allergies Allergy/AdvReac Type Severity Reaction Status Date / Time clams Allergy Severe ANAPHYLAXIS Verified 03/28/24 13:02 peanut Allergy Severe ANAPHYLAXIS Verified 03/28/24 13:02 Oyster Allergy Severe ANAPHYLAXIS Uncoded 03/28/24 13:02 Review of Systems Review of Systems Narrative Review of Systems: GEN: No fever, no chills, no weight loss EYES: No discharge, no visual changes, no pain HEENT: No ear pain, no congestion, no sore throat PULM: No shortness of breath, no cough, no congestion CV: No chest pain, no dyspnea on exertion, no palpitations GI: No nausea, no vomiting, no diarrhea, no pain, no constipation : No frequency, no urgency, no dysuria MUSC/SKEL: No joint pain, no back pain SKIN: No rash PSYCH: No hallucinations, no depression HEME/LYMPH: No easy bleeding or bruising tendencies NEURO: + weakness, no headache Past Medical History Past Medical History NEUROLOGIC: Positive Head Trauma; Negative Neurological Disorders or Seizures CARDIAC: Positive Cardiac Arrhythmia, Peripheral Vascular Disease, Hypercholesterolemia and Hypertension; Negative Cardiac Disorders or Congestive Heart Failure RESPIRATORY: Positive Sleep Apnea; Negative Chronic Obstructive Pulmonary Disease (COPD) or Asthma GASTROINTESTINAL: Positive Gastrointestinal Disorders and Hemorrhoids GENITOURINARY: Positive Genitourinary Disorders and Benign Prostatic Hyperplasia; Negative Renal Disease MUSCULOSKELETAL: Positive Musculoskeletal Disorders, Arthritis and Fractures ENT: Positive Head Trauma ENDOCRINE: Positive Endocrine Disorders and Diabetes Mellitus Type 2; Negative Diabetes Mellitus Type 1 or Hypothyroidism HEMATOLOGIC: Negative Blood Disorders, Anemia, Sickle Cell Disease or Clotting Problems OTHER HISTORY: Positive Hospitalization, Chicken Pox and Measles; Negative Shingles, Falls, Blood Transfusions, Anesthesia Reactions, Chemotherapy, Radiation Therapy or Cancer Family History FAMILY HISTORY: Positive Family Cardiac Disorders and Family Cancer Surgical History SURGICAL: Positive Arthroscopy and Vasectomy Social History SMOKING STATUS: Never smoker ED Exam Narrative Physical exam: [General: Not in any acute distress Head normocephalic HEENT: Eyes: Pupils are PERRLA EOMs are intact mouth dry membranes pink, uvula midline swallow symmetrical phonation is normal nose no rhinorrhea epistaxis all other subsystems of HEENT are within acceptable limits Neck is supple nontender, no JVD no edema Chest equal chest rise nontender to palpation Respiratory: Clear to auscultation no wheezes crackles or rubs CV: Rate rhythm is regular no murmurs rubs or clicks Abdomen is soft nontender no masses positive bowel sounds all 4 quadrants Back: No CVA tenderness no spinous process tenderness from cervical spine thoracic and lumbar spine Skin: Intact no petechiae rash induration ulceration or crepitus Extremities: Moving all extremity against resistance cap refill less than 2 seconds neurosensory intact Neuro: Awake alert oriented x3 Glascow coma 15 no focal deficits] Course Quality Measures none Orders Category Date Time Status Admit to Inpatient Status Routine Admission 03/28/24 15:49 Active Patient Condition Routine Admission 03/28/24 15:48 Ordered Bedside COVID-19 Antigen Test NOW Care 03/28/24 12:20 Completed Bedside Influenza A&B Antigen Test NOW Care 03/28/24 12:20 Completed EKG (ED ONLY) *Do not use* NOW Care 03/28/24 11:03 Completed Notify provider NEEDED Care 03/28/24 15:48 Active Saline [Insert IV] NOW Care 03/28/24 11:02 Active Referral Physical Therapy Stat Cons 03/28/24 15:[address] cervical spine wo con Stat Exams 03/28/24 11:[address] head/brain wo con Stat Exams 03/28/24 11:05 Completed EKG (ED Only) Stat Exams 03/28/24 11:03 Draft XR chest 1V portable Stat Exams 03/28/24 13:09 Completed B-Type Natriuretic Peptide Stat Lab 03/28/24 11:24 Completed Blood Culture (Lab) Stat Lab 03/28/24 12:33 Received CBC Stat Lab 03/28/24 11:24 Completed Comprehensive Metabolic Panel Stat Lab 03/28/24 11:24 Completed Creatine Kinase Stat Lab 03/28/24 11:24 Completed Drug Screen,Urine Stat Lab 03/28/24 12:57 Completed LDH (Lactate Dehydrogenase) Stat Lab 03/28/24 11:24 Completed Lactic Acid [Lactate (Lactic Acid)] Stat Lab 03/28/24 12:33 Completed Lactic Acid, 3 HR Stat Lab 03/28/24 15:48 Completed Magnesium Stat Lab 03/28/24 11:24 Completed Partial Thromboplastin Time Stat Lab 03/28/24 11:24 Completed Procalcitonin Stat Lab 03/28/24 12:33 Completed Prothrombin Time with INR Stat Lab 03/28/24 11:24 Completed Troponin I Stat Lab 03/28/24 11:24 Completed Urinalysis Stat Lab 03/28/24 12:57 Completed Acetaminophen Tab [Tylenol Tab] Med 03/28/24 12:20 Discontinued 650 mg PO X1 ONE Sodium Chloride 0.9% 1000 ml [Ns] 1,000 ml Med 03/28/24 11:03 Discontinued IV 999 mls/hr Sodium Chloride 0.9% 1000 ml [Ns] 1,000 ml Med 03/28/24 12:22 Discontinued IV 999 mls/hr Sodium Chloride 0.9% 1000 ml [Ns] 1,000 ml Med 03/28/24 14:44 Discontinued IV 999 mls/hr cefTRIAXone/D5w 1gm IV premix [Rocephin/D5w 1gm IV Med 03/28/24 14:05 Discontinued premix] 50 ml IV X1 Code Status Routine Oth 03/28/24 15:48 Ordered Vital Signs Vital signs: Vital Signs Temperature 99.1 F 03/28/24 10:24 Pulse Rate 95 03/28/24 10:24 Respiratory Rate 16 03/28/24 10:24 Blood Pressure 101/67 03/28/24 10:24 Pulse Oximetry (%) 96 03/28/24 10:24 Oxygen Delivery Method Room Air 03/28/24 10:24 [facility] Patient data External records reviewed:: [facility] previous records and EMS form Clinical information provided by:: patient and EMS Social determinants that could affect healthcare access:: none Patient has the following chronic illnesses:: Diabetes hypertension hyperlipidemia How is presenting disease/condition affected by chronic disease/condition?: u neffected by Evaluation data The following diagnostics were reviewed and interpreted by me:: lab results, radiology exam(s) and EKG tracing(s) Lab and/or radiology exams considered but not ordered:: EKG performed at 1114 shows a ventricular rate of 92 OK interval 172 QRS of 105 QTc of 382 is a sinus rhythm. CBC shows no leukocytosis 21,000 no anemia thrombocytopenia CMP shows CMP shows a YEIMI with BUN of 48 creatinine 1.7 no other significant lecture light imbalances transaminitis or T. bili elevation Lactic is +3.7 Procalcitonin is elevated Chest x-ray shows early pneumonia Creatinine kinase is mildly elevated Interpretation Summary: Patient was discovered to have a fever approximately 3 hours into the admission sepsis was called. Patient's source appears to be pneumonia, but this does not explain the generalized weakness. Patient is awake alert oriented leukocytosis YEIMI with sepsis patient will be admitted. Patient's case discussed with resident for Dr. Henao who agrees to accept the patient for admission. Medications Medications considered but not ordered:: None Medication administrations:: Medication Administration History Acetaminophen (Acetaminophen 325 Mg Tablet) 650 mg PO Q6H PRN PRN Reason: PAIN SCALE 1-3 (mild Stop: 04/27/24 15:55 Last Admin: 03/29/24 04:22 Dose: 650 mg Documented By: Admin: 03/28/24 19:58 Dose: 650 mg Documented By: LINDSAY Atorvastatin Calcium (Atorvastatin Calcium 20 Mg Tablet) 40 mg PO HS [facility] Stop: 04/27/24 20:59 Last Admin: 03/28/24 21:11 Dose: 40 mg Documented By: Azithromycin (Azithromycin 250 Mg Tablet) 250 mg PO QDAY@1600 [facility] Stop: 04/02/24 04:00 Cyclobenzaprine HCl (Cyclobenzaprine 5 Mg Tablet) 10 mg PO QDAY@1300 [facility] Stop: 04/27/24 16:19 Last Admin: 03/28/24 17:40 Dose: 10 mg Documented By: AM Dextrose (Dextrose 50%-Water Inj 50 Ml Syringe) 25 ml IV Q15MIN PRN PRN Reason: BG 50-70 responsive npo pt Stop: 04/27/24 16:00 Dextrose (Dextrose 50%-Water Inj 50 Ml Syringe) 50 ml IV Q15MIN PRN PRN Reason: BG <50 OR BG <70 & pt unresponsive Stop: 04/27/24 16:00 Enoxaparin Sodium (Enoxaparin Sod Inj 40 Mg/0.4 Ml Syringe) 40 mg SC QDAY [facility] Stop: 04/11/24 15:59 Last Admin: 03/29/24 08:24 Dose: 40 mg Documented By: Admin: 03/28/24 17:41 Dose: 40 mg Documented By: AM Glucagon (Glucagon Inj 1 Mg Vial) 1 mg IM Q15MIN PRN PRN Reason: BG <70, and no IV access Ceftriaxone Sodium/Dextrose (Rocephin/D5w 1gm Iv Premix) 50 mls @ 100 mls/hr IV QDAY@1400 [facility] Stop: 04/05/24 13:59 Magnesium Sulfate (Magnesium Sulfate Ivpb) 2 gm in 50 mls @ 25 mls/hr IV X1 ONE Stop: 03/29/24 12:46 Insulin Glargine (Insulin Glargine (Lantus) 5 Unit/0.05 Ml (Per 5 Units)) 5 unit SC HS [facility] Stop: 04/27/24 20:59 Last Admin: 03/28/24 21:07 Dose: Not Given Documented By: Non-Admin Reason: Patient Refused Insulin Human Lispro (Insulin Lispro (Admelog) 1 Unit/0.01 Ml Unit) 0 unit SC ACHS [facility]; Protocol Stop: 04/27/24 16:59 Last Admin: 03/29/24 08:09 Dose: Not Given Documented By: BF Non-Admin Reason: Patient Refused Comments: STATES HE IS ALSO NOT EATING Admin: 03/28/24 21:07 Dose: Not Given Documented By: SA Non-Admin Reason: Patient Refused Admin: 03/28/24 18:32 Dose: Not Given Documented By: AM Non-Admin Reason: NPO Oxybutynin Chloride (Oxybutynin Chlor 5 Mg Tablet) 5 mg PO BID@0100,1300 [facility] Stop: 04/28/24 00:59 Last Admin: 03/29/24 01:13 Dose: 5 mg Documented By: SA Discontinued Medications Acetaminophen (Acetaminophen 325 Mg Tablet) 650 mg PO X1 ONE Stop: 03/28/24 12:21 Last Admin: 03/28/24 12:35 Dose: 650 mg Documented By: AM Azithromycin (Azithromycin 250 Mg Tablet) 500 mg PO X1 ONE Stop: 03/28/24 16:08 Last Admin: 03/28/24 17:40 Dose: 500 mg Documented By: AM Sodium Chloride (Ns) 1,000 mls @ 999 mls/hr IV .Q1H1M ONE Stop: 03/28/24 12:03 Last Infusion: 03/28/24 13:45 Dose: Infused Documented By: Admin: 03/28/24 12:36 Dose: 999 mls/hr Documented By: AM Sodium Chloride (Ns) 1,000 mls @ 999 mls/hr IV .Q1H1M ONE Stop: 03/28/24 13:22 Last Infusion: 03/28/24 13:20 Dose: Infused Documented By: Admin: 03/28/24 12:37 Dose: 999 mls/hr Documented By: AM Ceftriaxone Sodium/Dextrose (Rocephin/D5w 1gm Iv Premix) 50 mls @ 100 mls/hr IV X1 ONE Stop: 03/28/24 14:34 Last Infusion: 03/28/24 15:20 Dose: Infused Documented By: Admin: 03/28/24 14:42 Dose: 100 mls/hr Documented By: AM Sodium Chloride (Ns) 1,000 mls @ 999 mls/hr IV .Q1H1M ONE Stop: 03/28/24 15:44 Last Infusion: 03/28/24 18:00 Dose: Infused Documented By: Admin: 03/28/24 14:45 Dose: 999 mls/hr Documented By: AM Sodium Chloride (Ns) 1,000 mls @ 100 mls/hr IV .Q10H [facility] Stop: 04/27/24 18:29 Last Infusion: 03/29/24 08:31 Dose: Infused Documented By: Infusion: 03/29/24 08:28 Dose: Infused Documented By: Admin: 03/28/24 19:06 Dose: 100 mls/hr Documented By: AM Sodium Chloride (Ns) 250 mls @ 999 mls/hr IV .Q16M ONE Stop: 03/29/24 08:16 Last Admin: 03/29/24 08:21 Dose: 999 mls/hr Documented By: BF Magnesium Sulfate (Magnesium Sulfate Ivpb) 2 gm in 50 mls @ 25 mls/hr IV X1 ONE Stop: 03/29/24 10:27 Last Admin: 03/29/24 09:09 Dose: 25 mls/hr Documented By: BF Oxybutynin Chloride (Oxybutynin Chlor 5 Mg Tablet) 5 mg PO QDAY@0100 [facility] Stop: 04/28/24 00:59 Sodium Chloride (Sodium Chloride Rt 10% 15 Ml Nebu) 5 ml INH X1 ONE Stop: 03/28/24 15:57 Last Admin: 03/28/24 18:00 Dose: 5 ml Documented By: KATHYA Now Consultations Consultation(s) initiated? (list below): No Diagnosis Differential Diagnosis ED Complaint MDM: YEIMI pneumonia sepsis rhabdo Most likely diagnosis given after review of the tests above:: YEIMI pneumonia rhabdo sepsis Admission Indicated Admission indicated?: indicated Explain why admission is indicated or not indicated:: Needs medical management Admission Request Was there a request for admission?: No Disposition Plan Disposition Plan: Admit Medical Decision Making Differential Diagnosis Differential Diagnosis: YEIMI pneumonia sepsis rhabdo Lab Data 03/29/24 05:21 03/29/24 05:21 Labs: Lab Results 03/28/24 03/28/24 03/28/24 Range/Units 11:24 12:33 12:57 WBC 21.5 H (3.8-10.6) Thou/mm3 RBC 4.66 (4.50-5.90) Miln/mm3 Hgb 12.8 L (13.5-16.0) g/dL Hct 38.4 L (41.0-53.0) % MCV 82 (80-100) fL MCH 27.5 (25.0-35.0) pg MCHC 33.3 (31.0-37.0) g/dl RDW Std Deviation 42.2 (35.1-43.9) fL Plt Count 184 (140-440) Thou/mm3 Neut % (Auto) 82 H (37-80) % Lymph % (Auto) 3 L (10-50) % [place] % (Auto) 8 (0-12) % Eos % (Auto) 0 (0-10) % Baso % (Auto) 0 (0-2.5) % Neut # (Auto) 17.5 H (1.8-7.7) Thou/mm3 Lymph # (Auto) 0.7 L (1.0-4.8) Thou/mm3 [place] # (Auto) 1.7 H (0.0-0.8) Thou/mm3 Eos # (Auto) 0.0 (0.0-0.5) Thou/mm3 Baso # (Auto) 0.0 (0.0-0.2) Thou/mm3 Immature Gran # (Auto) 1.45 H (0.00-0.00) Thou/mm3 Absolute Nucleated RBC 0.00 (0.00-0.00) Thou/mm3 Immature Gran % 7 H (0-0) % Nucleated RBC % 0 (0) /100 WBC PT 13.1 H (9.0-12.2) Seconds INR 1.2 (0.9-1.3) APTT 31.6 (22.0-36.0) Seconds Sodium 136 (136-145) mMol/L Potassium 4.5 (3.4-5.1) mMol/L Chloride 101 (98-107) mMol/L Carbon Dioxide 24.0 (20.0-31.0) mMol/L Anion Gap 11 (7-16) BUN 40 H (9-23) mg/dL Creatinine 1.8 H (0.6-1.3) mg/dL Estim Creat Clear Calc 43.1 L (>60) mL/min eGFR 40 L (60 - ) See Note BUN/Creatinine Ratio 22 H (12-20) Ratio Glucose 178 H (74-106) mg/dL Calculated Osmolality 285 (275-295) Lactic Acid 3.7 H (0.4-2.0) mMol/L Calcium 10.0 (8.3-10.6) mg/dL Corrected Calcium 10.0 (8.5-10.1) mg/dL Magnesium 1.6 (1.6-2.6) mg/dL Total Bilirubin 1.1 (0.3-1.2) mg/dL AST 36 H (0-34) U/L ALT 19 (10-49) U/L Alkaline Phosphatase 82 (46-116) U/L Lactate Dehydrogenase 210 (120-246) U/L Total Creatine Kinase 862 H (34-171) U/L Troponin I < 0.020 (0.0-0.045) ng/mL B-Natriuretic Peptide 199 H (0-100) pg/mL Total Protein 7.4 (5.7-8.2) gm/dL Albumin 4.9 H (3.4-4.8) gm/dL Globulin 2.5 (2.3-3.5) gm/dL Albumin/Globulin Ratio 2.0 (1.2-2.2) Procalcitonin 6.80 H (0.0-0.49) ng/ml Ur Collection Type Clean Catch Urine Color Yellow (Lt Yel-Yel) Urine Clarity Turbid A (Clear/Hazy) Urine pH 5.5 (5.0-7.0) Ur Specific [place] 1.018 (1.001-1.035) Urine Protein 2+ A (Neg - Trace) Urine Glucose (UA) Negative (Negative) Urine Ketones Negative (Negative) Urine Blood 1+ A (Negative) Urine Nitrite Positive (Negative) Urine Bilirubin Negative (Negative) Urine Urobilinogen (Auto) Negative (0.0-1.0) mg/dL Ur Leukocyte Esterase Positive (Negative) Urine RBC 6 H (0-3) /hpf Urine WBC 156 H (0-5) /hpf Ur Squamous Epith Cells < 1 (0-5) /hpf Urine Bacteria 1+ A (None) Urine Opiates Screen Negative (Negative) Urine Fentanyl Screen Negative (Negative) Ur Barbiturates Screen Negative (Negative) U Amphetamin/Meth Scrn Negative (Negative) U Benzodiazepines Scrn Negative (Negative) U Cocaine Metab Screen Negative (Negative) U Marijuana (THC) Screen Negative (Negative) 03/28/24 Range/Units 15:48 WBC (3.8-10.6) Thou/mm3 RBC (4.50-5.90) Miln/mm3 Hgb (13.5-16.0) g/dL Hct (41.0-53.0) % MCV (80-100) fL MCH (25.0-35.0) pg MCHC (31.0-37.0) g/dl RDW Std Deviation (35.1-43.9) fL Plt Count (140-440) Thou/mm3 Neut % (Auto) (37-80) % Lymph % (Auto) (10-50) % [place] % (Auto) (0-12) % Eos % (Auto) (0-10) % Baso % (Auto) (0-2.5) % Neut # (Auto) (1.8-7.7) Thou/mm3 Lymph # (Auto) (1.0-4.8) Thou/mm3 [place] # (Auto) (0.0-0.8) Thou/mm3 Eos # (Auto) (0.0-0.5) Thou/mm3 Baso # (Auto) (0.0-0.2) Thou/mm3 Immature Gran # (Auto) (0.00-0.00) Thou/mm3 Absolute Nucleated RBC (0.00-0.00) Thou/mm3 Immature Gran % (0-0) % Nucleated RBC % (0) /100 WBC PT (9.0-12.2) Seconds INR (0.9-1.3) APTT (22.0-36.0) Seconds Sodium (136-145) mMol/L Potassium (3.4-5.1) mMol/L Chloride (98-107) mMol/L Carbon Dioxide (20.0-31.0) mMol/L Anion Gap (7-16) BUN (9-23) mg/dL Creatinine (0.6-1.3) mg/dL Estim Creat Clear Calc (>60) mL/min eGFR (60 - ) See Note BUN/Creatinine Ratio (12-20) Ratio Glucose (74-106) mg/dL Calculated Osmolality (275-295) Lactic Acid 1.4 (0.4-2.0) mMol/L Calcium (8.3-10.6) mg/dL Corrected Calcium (8.5-10.1) mg/dL Magnesium (1.6-2.6) mg/dL Total Bilirubin (0.3-1.2) mg/dL AST (0-34) U/L ALT (10-49) U/L Alkaline Phosphatase (46-116) U/L Lactate Dehydrogenase (120-246) U/L Total Creatine Kinase 1250 H D (34-171) U/L Troponin I (0.0-0.045) ng/mL B-Natriuretic Peptide (0-100) pg/mL Total Protein (5.7-8.2) gm/dL Albumin (3.4-4.8) gm/dL Globulin (2.3-3.5) gm/dL Albumin/Globulin Ratio (1.2-2.2) Procalcitonin (0.0-0.49) ng/ml Ur Collection Type Urine Color (Lt Yel-Yel) Urine Clarity (Clear/Hazy) Urine pH (5.0-7.0) Ur Specific [place] (1.001-1.035) Urine Protein (Neg - Trace) Urine Glucose (UA) (Negative) Urine Ketones (Negative) Urine Blood (Negative) Urine Nitrite (Negative) Urine Bilirubin (Negative) Urine Urobilinogen (Auto) (0.0-1.0) mg/dL Ur Leukocyte Esterase (Negative) Urine RBC (0-3) /hpf Urine WBC (0-5) /hpf Ur Squamous Epith Cells (0-5) /hpf Urine Bacteria (None) Urine Opiates Screen (Negative) Urine Fentanyl Screen (Negative) Ur Barbiturates Screen (Negative) U Amphetamin/Meth Scrn (Negative) U Benzodiazepines Scrn (Negative) U Cocaine Metab Screen (Negative) U Marijuana (THC) Screen (Negative) Discharge Plan Plan Patient Disposition: Admit Acute Care w/in Hospital Patient condition on transfer: Stable Problem List Clinical Impression: Rhabdomyolysis, Sepsis, Pneumonia, YEIMI (acute kidney injury), Weakness PA/PRESCRIPTIONIST Supervising Physician PA/PRESCRIPTIONIST Supervising Physician: Carlo Gibbs ENP
--- NOTE | 2024-03-28 11:05 | XR_ITS ---
Examination: CT cervical spine without contrast 2-D sagittal reconstructions 2-D coronal reconstructions 3-D reconstructions. Exam date and time:March 28, 2024 and 50 hours INDICATIONS: Patient fell today with injury to the neck, neck pain CTDI:vol (mGy) 9.35 DLP: (mGycm) 227 Technique: Multiple 2 mm axial sections of the cervical spine have been obtained. The coronal and sagittal reconstructions have been obtained. 3-D reconstructions have been obtained. Low dose protocols were performed. One or more of the following dose reduction techniques were used; automated exposure control, adjustment of the mA and/or KV according to patient size, use of iterative reconstruction technique. Findings: Patient motion significantly degrades scan image quality No gross fracture Adequate alignment vertebral bodies IMPRESSION: Patient motion significantly degrades scan image quality No gross cervical fracture Repeat this study as clinically warranted
--- NOTE | 2024-03-28 11:05 | XR_ITS ---
Examination: CT brain head without contrast. 2-D sagittal coronal reconstructions Date and time of exam:March 28, 2024 1150 hours INDICATIONS: Patient fell today with injury to the head, head pain CTDI: vol (mGy):56 DLP: (mGycm):1173 Technique: Multiple CT axial sections of the brain have been obtained, 5 mm slice thickness. Contrast has not been administered. 2-D sagittal, coronal reconstructions have been obtained Low dose protocols were performed. One or more of the following dose reduction techniques were used; automated exposure control, adjustment of the mA and/or KV according to patient size, use of iterative reconstruction technique. Findings: No significant ventricular enlargement. Intra-axial or extra-axial hemorrhage density is not seen. No mass effect or midline shift Basal cisterns are not remarkable. Fourth ventricle is midline. Cranial vault intact. Impression: Negative for acute hemorrhage, mass effect or midline shift
[2024-03-28 11:38] LABS: Basophils % (Auto) 0 % (0-2.5); Eosinophils % (Auto) 0 % (0-10); Hematocrit 38.4 % (41.0-53.0); Hemoglobin 12.8 g/dL (13.5-16.0); Immature Granulocytes % (Auto) 7 % (0-0); Immature Granulocytes Auto 1.45 Thou/mm3 (0.00-0.00); Lymphocytes # (Auto) 0.7 Thou/mm3 (1.0-4.8); Lymphocytes % (Auto) 3 % (10-50); Mean Corpuscular HGB Conc 33.3 g/dl (31.0-37.0); Mean Corpuscular Hemoglobin 27.5 pg (25.0-35.0); Mean Corpuscular Volume 82 fL (80-100); Monocytes # (Auto) 1.7 Thou/mm3 (0.0-0.8); Monocytes % (Auto) 8 % (0-12); Neutrophils # (Auto) 17.5 Thou/mm3 (1.8-7.7); Neutrophils % (Auto) 82 % (37-80); Nucleated Red Blood Cell % 0 /100 WBC (0); Platelet Count 184 Thou/mm3 (140-440); RDW Standard Deviation 42.2 fL (35.1-43.9); Red Blood Count 4.66 Miln/mm3 (4.50-5.90); White Blood Count 21.5 Thou/mm3 (3.8-10.6)
[2024-03-28 11:51] LABS: INR 1.2 (0.9-1.3); Partial Thromboplastin Time 31.6 Seconds (22.0-36.0); Prothrombin Time 13.1 Seconds (9.0-12.2)
[2024-03-28 11:59] LABS: Alanine Aminotransferase 19 U/L (10-49); Albumin, Serum 4.9 gm/dL (3.4-4.8); Alkaline Phosphatase 82 U/L (46-116); Anion Gap 11 (7-16); Aspartate Amino Transferase 36 U/L (0-34); B-Type Natriuretic Peptide 199 pg/mL (0-100); BUN/Creatinine Ratio 22 Ratio (12-20); Bilirubin,Total 1.1 mg/dL (0.3-1.2); Blood Urea Nitrogen 40 mg/dL (9-23); Chloride 101 mMol/L (98-107); Creatine Kinase 862 U/L (34-171); Creatinine (Component) 1.8 mg/dL (0.6-1.3); Estimated Creatinine Clearance 43.1 mL/min (>60); Globulin 2.5 gm/dL (2.3-3.5); Glucose 178 mg/dL (74-106); LDH (Lactate Dehydrogenase) 210 U/L (120-246); Magnesium 1.6 mg/dL (1.6-2.6); Osmolality,Calculated 285 (275-295); Potassium 4.5 mMol/L (3.4-5.1); Sodium 136 mMol/L (136-145); Total Protein 7.4 gm/dL (5.7-8.2); Troponin I < 0.020 ng/mL (0.0-0.045); eGFR 40 See Note
[2024-03-28] MEDS: ACETAMINOPHEN 325 MG TABLET 650 MG PO ×2 (12:35→19:58)
[2024-03-28] MEDS: SODIUM CHLORIDE 0.9% 1000 ML 1,000 ML 999 ML IV ×3 (12:36→14:45)
[2024-03-28 12:46] LABS: Lactate (Lactic Acid) 3.7 mMol/L (0.4-2.0)
--- NOTE | 2024-03-28 13:09 | XR_ITS ---
Examination: AP chest single view Technique one AP portable semiupright chest single view Exam date and time: March 28, 2024 1322 hours Comparison 12/06/2021 INDICATIONS: Sepsis difficulty breathing today. FINDINGS: Suspicious for early bilateral perihilar pneumonia Stable nodule right lower lung zone Mild prominence left ventricle IMPRESSION: Suspicious for early bilateral perihilar pneumonia
[2024-03-28 13:10] LABS: Collection Type, Urine Clean Catch
[2024-03-28 13:43] LABS: Bacteria,Urine 1+; Bilirubin,Urine Negative (Negative); Blood,Urine 1+ (Negative); Clarity,Urine Turbid (Clear/Hazy); Color,Urine Yellow (Lt Yel-Yel); Glucose, Urine Negative (Negative); Ketones,Urine Negative (Negative); Leukocyte Esterase,Urine Positive (Negative); Nitrite,Urine Positive (Negative); PH,Urine 5.5 (5.0-7.0); Protein,Urine 2+ (Neg - Trace); RBC,Urine 6 /hpf (0-3); Specific Gravity,Urine 1.018 (1.001-1.035); Squamous Epithelial Cell,Urine < 1 /hpf (0-5); Urobilinogen,Urine Negative mg/dL (0.0-1.0); WBC,Urine 156 /hpf (0-5)
[2024-03-28 13:47] LABS: Amphetamine/Methamp Scrn,U Negative (Negative); Barbiturate Screen,Urine Negative (Negative); Benzodiazepines Screen,Urine Negative (Negative); Benzoylecgonine Screen, Ur Negative (Negative); Fentanyl Screen,Urine Negative (Negative); Opiate Screen,Urine Negative (Negative); THC Screen,Urine Negative (Negative)
[2024-03-28] MEDS: cefTRIAXone/D5w 1gm IV premix 50 ML IV (14:42)
[2024-03-28 15:43] LABS: Reflex Lactate? Y
[2024-03-28 16:04] LABS: Lactic Acid, 3 HR 1.4 mMol/L (0.4-2.0)
--- NOTE | 2024-03-28 16:23 | ESHP_ITS ---
Documentation for date of: 03/28/24 [facility] History of Present Illness History of present illness: The patient is a 73-year-old male with significant past medical history of hypertension, diabetes mellitus type 2, chronic leucopenia and thrombocytopenia, chronic liver disease and chronic urinary retention who was brought in by ambulance after being found on floor by her . The patient reported having generalized weakness, fever and chills for past 2 days. He denied any headache, nausea, vomiting, chest pain, SOB, abdominal pain, any changes in bowel habit or leg swelling. In the ED, vitals were significant for pulse 105, temperature 101.4, labs are significant for white count 21.5, hemoglobin 12.8, BUN 40, creatinine 1.8, GFR 40, blood sugar 178, lactic acid 3.7, total CK862 that trended up to 1250, BNP 199, and Pro-[place] 6.80. UA was significant for UTI with protein 2+, blood 1+, nitrate positive, leukocyte Estrace positive, RBC 6, WBC 156 with 1+ bacteria. CXR was suspicious for early bilateral perihilar pneumonia, head CT was negative for acute hemorrhage, mass effect or midline shift, EKG significant for sinus rhythm and cervical CT spine with no gross cervical fracture. PMH: As mentioned above Family history: Prostate cancer in maternal grandfather Social history: Denies tobacco, drugs but occasionally uses alcohol The patient received acetaminophen 650 Mg p.o. x 1, 3 L of normal saline bolus, and ceftriaxone; and was admitted to [facility] telemetry unit for further management of sepsis secondary to complicated UTI associated with rhabdomyolysis. Review of Systems Review of Systems Systems Reviewed: All systems reviewed, normal except as documented Exam Vital Signs Temp Pulse Resp BP Pulse Ox O2 Del Method 99 F 105 H 18 102/81 97 Room Air 03/28/24 14:23 03/28/24 14:23 03/28/24 14:23 03/28/24 14:23 03/28/24 14:23 03/28/24 14:23 Narrative Exam General: Elderly, well-nourished, cooperative, no acute distress, Alert and Oriented x 3 HEENT: Moist mucous membranes, oropharynx clear, flushed face Neck: Supple, No masses, No JVD CVS: S1S2 Regular rate and rhythm, No murmurs, rubs or gallops Lungs: Clear to auscultation with no accessory use, no wheeze no rhonchi Abd: Soft, NT/ND, +BS, no organomegaly Ext: No edema, warm and well perfused Skin: No rash Psych: Appropriate mood and affect Results: Labs 03/29/24 05:21 03/29/24 05:21 Labs: Short CBC 03/28/24 Range/Units 11:24 WBC 21.5 H (3.8-10.6) Thou/mm3 Hgb 12.8 L (13.5-16.0) g/dL Hct 38.4 L (41.0-53.0) % Plt Count 184 (140-440) Thou/mm3 BMP 03/28/24 11:24 Sodium 136 Potassium 4.5 Chloride 101 Carbon Dioxide 24.0 BUN 40 H Creatinine 1.8 H Glucose 178 H Calcium 10.0 Cardiac Enzymes 03/28/24 Range/Units 11:24 Total Creatine Kinase 862 H (34-171) U/L Troponin I < 0.020 (0.0-0.045) ng/mL Liver Function 03/28/24 Range/Units 11:24 Total Bilirubin 1.1 (0.3-1.2) mg/dL AST 36 H (0-34) U/L ALT 19 (10-49) U/L Alkaline Phosphatase 82 (46-116) U/L Albumin 4.9 H (3.4-4.8) gm/dL Urine 03/28/24 Range/Units 12:57 Urine Color Yellow (Lt Yel-Yel) Urine Clarity Turbid A (Clear/Hazy) Urine pH 5.5 (5.0-7.0) Ur Specific [place] 1.018 (1.001-1.035) Urine Protein 2+ A (Neg - Trace) Urine Glucose (UA) Negative (Negative) Quality Measures Quality Measures none Advance care planning discussed with:: patient and spouse Medications Home Medications and Allergies Home Medications ?Medication ?Instructions ?Recorded ?Confirmed ?Type rosuvastatin 10 mg tablet (Crestor) 10 mg PO DAILY #0 tabs 08/27/16 01/31/24 History meloxicam 15 mg tablet 15 mg PO QDAY 02/23/18 01/31/24 History amlodipine 10 mg tablet 5 mg PO DAILY 09/12/21 01/31/24 History lisinopril 40 mg tablet 40 mg PO QDAY 09/12/21 01/31/24 History metoprolol succinate 25 mg 50 mg PO QDAY 09/12/21 01/31/24 History tablet,extended release 24 hr furosemide 20 mg tablet (Lasix) 20 mg PO 1XD 03/04/22 01/31/24 History potassium chloride 10 mEq 10 meq PO QDAY 03/04/22 01/31/24 History tablet,extended release cyclobenzaprine 10 mg tablet 10 mg PO QDAY 12/31/23 01/31/24 History metformin 1,000 mg tablet 1,000 mg PO QDAY 12/31/23 01/31/24 History oxybutynin chloride 5 mg tablet 5 mg PO QDAY 12/31/23 01/31/24 History vitamin A-vitamin C-vit E-min 1 tab PO QDAY 12/31/23 01/31/24 History tablet Allergies Allergy/AdvReac Type Severity Reaction Status Date / Time clams Allergy Severe ANAPHYLAXIS Verified 03/28/24 13:02 peanut Allergy Severe ANAPHYLAXIS Verified 03/28/24 13:02 Oyster Allergy Severe ANAPHYLAXIS Uncoded 03/28/24 13:02 Visit Medications Acetaminophen (Acetaminophen 325 Mg Tablet) 650 mg PO Q6H PRN PRN Reason: PAIN SCALE 1-3 (mild Stop: 04/27/24 15:55 Atorvastatin Calcium (Atorvastatin Calcium 20 Mg Tablet) 40 mg PO HS MARSHAL Stop: 04/27/24 20:59 Azithromycin (Azithromycin 250 Mg Tablet) 250 mg PO QDAY@1600 MARSHAL Stop: 04/02/24 04:00 Cyclobenzaprine HCl (Cyclobenzaprine 5 Mg Tablet) 10 mg PO QDAY@1300 [facility] Stop: 04/27/24 16:19 Dextrose (Dextrose 50%-Water Inj 50 Ml Syringe) 25 ml IV Q15MIN PRN PRN Reason: BG 50-70 responsive npo pt Stop: 04/27/24 16:00 Dextrose (Dextrose 50%-Water Inj 50 Ml Syringe) 50 ml IV Q15MIN PRN PRN Reason: BG <50 OR BG <70 & pt unresponsive Stop: 04/27/24 16:00 Enoxaparin Sodium (Enoxaparin Sod Inj 40 Mg/0.4 Ml Syringe) 40 mg SC QDAY MARSHAL Stop: 04/11/24 15:59 Glucagon (Glucagon Inj 1 Mg Vial) 1 mg IM Q15MIN PRN PRN Reason: BG <70, and no IV access Ceftriaxone Sodium/Dextrose (Rocephin/D5w 1gm Iv Premix) 50 mls @ 100 mls/hr IV QDAY@1400 [facility] Stop: 04/05/24 13:59 Insulin Glargine (Insulin Glargine (Lantus) 5 Unit/0.05 Ml (Per 5 Units)) 5 unit SC HS [facility] Stop: 04/27/24 20:59 Insulin Human Lispro (Insulin Lispro (Admelog) 1 Unit/0.01 Ml Unit) 0 unit SC [facility]; Protocol Stop: 04/27/24 16:59 Oxybutynin Chloride (Oxybutynin Chlor 5 Mg Tablet) 5 mg PO BID@0100,1300 [facility] Stop: 04/28/24 00:59 Discontinued Medications Acetaminophen (Acetaminophen 325 Mg Tablet) 650 mg PO X1 ONE Stop: 03/28/24 12:21 Last Admin: 03/28/24 12:35 Dose: 650 mg Azithromycin (Azithromycin 250 Mg Tablet) 500 mg PO X1 ONE Stop: 03/28/24 16:08 Sodium Chloride (Ns) 1,000 mls @ 999 mls/hr IV .Q1H1M ONE Stop: 03/28/24 12:03 Last Admin: 03/28/24 12:36 Dose: 999 mls/hr Sodium Chloride (Ns) 1,000 mls @ 999 mls/hr IV .Q1H1M ONE Stop: 03/28/24 13:22 Last Admin: 03/28/24 12:37 Dose: 999 mls/hr Ceftriaxone Sodium/Dextrose (Rocephin/D5w 1gm Iv Premix) 50 mls @ 100 mls/hr IV X1 ONE Stop: 03/28/24 14:34 Last Admin: 03/28/24 14:42 Dose: 100 mls/hr Sodium Chloride (Ns) 1,000 mls @ 999 mls/hr IV .Q1H1M ONE Stop: 03/28/24 15:44 Last Admin: 03/28/24 14:45 Dose: 999 mls/hr Oxybutynin Chloride (Oxybutynin Chlor 5 Mg Tablet) 5 mg PO QDAY@0100 [facility] Stop: 04/28/24 00:59 Sodium Chloride (Sodium Chloride Rt 10% 15 Ml Nebu) 5 ml INH X1 ONE Stop: 03/28/24 15:57 Assessment & Plan Plan The patient is a 73-year-old male with significant past medical history of hypertension, diabetes mellitus type 2, chronic leucopenia and thrombocytopenia, chronic liver disease and chronic urinary retention who was brought in by ambulance after being found on floor by her . The patient reported having generalized weakness, fever and chills for past 2 days. The patient was admitted to [facility] telemetry unit for further management of sepsis secondary to complicated UTI associated with rhabdomyolysis. #Sepsis 2/2 #Complicated UTI Patient presented with generalized weakness, and was found to have 3/4 SIRS criteria with UTI as source of infection. During presentation pulse 105, temperature 101.4, labs are significant for white count 21.5 Male patient with UA significant for UTI with protein 2+, blood 1+, nitrate positive, leukocyte Estrace positive, RBC 6, WBC 156 with 1+ bacteria -Patient received 3 L IV normal saline bolus -Started on ceftriaxone 1 g daily 03/28/2024- -Started on azithromycin 03/28/2024- -Blood, urine and sputum culture ordered, narrow down antibiotics as per results -Daily a.m. labs #Prerenal YEIMI secondary to dehydration #Rhabdomyolysis secondary to immobilization in the ground Less likely postrenal secondary to urinary retention BUN/creatinine ratio 22 suggestive of prerenal etiology BUN 40, creatinine 1.8, GFR 40 and total CK862 that trended up to 1250 -Received 3 L IV normal saline bolus -Started on maintenance IV normal saline 100 cc/h -Trend total CK until delta is achieved #Possible bilateral perihilar pneumonia Likely community-acquired with gram-positive bacteria Influenza A and B; and COVID-19 negative -On ceftriaxone and azithromycin as above -Oxygen as needed #Lactic acidosis, resolved Secondary to sepsis -Treat underlying cause that is sepsis -Received 3 L of IV normal saline bolus -Started on maintenance normal saline 100 cc/h #Diabetes mellitus type 2 Ordered A1c -Started on Lantus 5 units daily at night -Started on SSI lispro ACHS #History of chronic urinary retention Ordered bladder scan and straight cath if volume greater than 400 cc -Bladder scan as needed #Hypertension Patient is on home medication metoprolol succinate 50 Mg daily, lisinopril 40 Mg daily and Lasix 20 Mg daily along with amlodipine 5 Mg daily -Currently blood pressure is stable, we will hold antihypertensive in the setting of sepsis -Monitor blood pressure closely Dispo: Patient admitted to [facility]-telemetry unit for further management of sepsis secondary to complicated UTI DVT prophylaxis: Lovenox Diet: Consistent carb diet CODE STATUS: Full code The patient's management plan was discussed with my attending physician MD Davi Huynh MD, PGY2 Attending Provider Attestation/Addendum I reviewed labs, imaging, EKG, home medications and prior available records. Face to face evaluation was performed by me. I have personally examined the patient and discussed assessment and plan with the IM team. I reviewed the resident note and agree with the plan with exceptions as below. Generalized weakness Fall Sepsis Acute UTI Bilateral pneumonia, lower lobes Leukocytosis Started ceftriaxone/azithromycin Sent blood and urine cultures Started IV hydration Trend WBC Ordered PT evaluation
[2024-03-28 16:45] LABS: Creatine Kinase 1250 U/L (34-171)
[2024-03-28] MEDS: AZITHROMYCIN 250 MG TABLET 500 MG PO (17:40)
[2024-03-28] MEDS: CYCLObenzaPRINE 5 MG TABLET 10 MG PO (17:40)
[2024-03-28] MEDS: ENOXAPARIN SOD INJ 40 MG/0.4 ML SYRINGE SC (17:41)
[2024-03-28] MEDS: SODIUM CHLORIDE RT 10% 15 ML NEBU 5 ML INH (18:00)
--- NOTE | 2024-03-28 18:06 | PC.RT ---
pt able to expectorate sputum during sputum induction tx, small frothy white sputum obtained at 18:01, sent to lab.
[2024-03-28] MEDS: SODIUM CHLORIDE 0.9% 1000 ML 1,000 ML 100 ML IV (19:06)
[2024-03-28] MEDS: ATORVASTATIN CALCIUM 20 MG TABLET 40 MG PO (21:11)
--- NOTE | 2024-03-28 22:20 | PC.NURSE ---
Per Red from engineering, patient's CPAP machine from home can be used in patient's room.
--- NOTE | 2024-03-28 22:29 | PC.NURSE ---
Requested RT Hernandez, to come and set up patient's CPAP machine.
[2024-03-29] VITALS (12 sets, daily range): BP systolic 90–122; BP diastolic 50–74; PULSE 81–109; RESP 16–95; TEMP 36.2–39.1; O2SAT 88–97
[2024-03-29 00:10] LABS: Creatine Kinase 1159 U/L (34-171)
[2024-03-29] MEDS: OXYBUTYNIN CHLOR 5 MG TABLET PO ×2 (01:13→13:34)
[2024-03-29] MEDS: ACETAMINOPHEN 325 MG TABLET 650 MG PO (04:22)
[2024-03-29 06:34] LABS: Basophils % (Auto) 0 % (0-2.5); Eosinophils % (Auto) 0 % (0-10); Hematocrit 30.4 % (41.0-53.0); Hemoglobin 10.2 g/dL (13.5-16.0); Immature Granulocytes % (Auto) 7 % (0-0); Immature Granulocytes Auto 0.82 Thou/mm3 (0.00-0.00); Lymphocytes # (Auto) 0.4 Thou/mm3 (1.0-4.8); Lymphocytes % (Auto) 3 % (10-50); Mean Corpuscular HGB Conc 33.6 g/dl (31.0-37.0); Mean Corpuscular Hemoglobin 27.5 pg (25.0-35.0); Mean Corpuscular Volume 82 fL (80-100); Monocytes # (Auto) 1.2 Thou/mm3 (0.0-0.8); Monocytes % (Auto) 10 % (0-12); Neutrophils # (Auto) 9.6 Thou/mm3 (1.8-7.7); Neutrophils % (Auto) 80 % (37-80); Nucleated Red Blood Cell % 0 /100 WBC (0); Platelet Count 117 Thou/mm3 (140-440); RDW Standard Deviation 42.5 fL (35.1-43.9); Red Blood Count 3.71 Miln/mm3 (4.50-5.90); White Blood Count 12.1 Thou/mm3 (3.8-10.6)
[2024-03-29 07:08] LABS: Glucose Estimated Average 123 mg/dL (80-131); Hemoglobin A1C 5.9 % Hgb (4.8-6.0)
[2024-03-29 07:47] LABS: Alanine Aminotransferase 17 U/L (10-49); Albumin, Serum 3.8 gm/dL (3.4-4.8); Alkaline Phosphatase 68 U/L (46-116); Anion Gap 13 (7-16); Aspartate Amino Transferase 42 U/L (0-34); BUN/Creatinine Ratio 25 Ratio (12-20); Bilirubin,Direct 0.4 mg/dL (0.0-0.3); Bilirubin,Total 0.7 mg/dL (0.3-1.2); Blood Urea Nitrogen 35 mg/dL (9-23); Calcium 8.6 mg/dL (8.3-10.6); Carbon Dioxide 16.9 mMol/L (20.0-31.0); Chloride 107 mMol/L (98-107); Cholesterol < 50 mg/dL (132-200); Creatinine (Component) 1.4 mg/dL (0.6-1.3); Estimated Creatinine Clearance 56.5 mL/min (>60); Glucose 131 mg/dL (74-106); HDL Cholesterol < 10 mg/dL (40-60); LDL Cholesterol,Calculated 19 mg/dL (0-130); Magnesium 1.4 mg/dL (1.6-2.6); Osmolality,Calculated 283 (275-295); Phosphorous 2.3 mg/dL (2.4-5.1); Potassium 3.9 mMol/L (3.4-5.1); Sodium 137 mMol/L (136-145); Total Protein 5.9 gm/dL (5.7-8.2); Triglycerides 104 mg/dL (30-150); eGFR 54 See Note
--- NOTE | 2024-03-29 07:49 | PC.NURSE ---
PT BP WAS 90/50 DR. DUARTE WAS NOTIFIED ORDERS WERE TO BLADDER SCAN, WHICH SHOWED 270ML, ALYCE LIN WAS NOTIFIED OF BLADDER SCAN MD STATES HE WILL ROUND WITH HIS TEAM. NO NEW ORDERS
--- NOTE | 2024-03-29 07:57 | PC.NURSE ---
DR. MEAD AT BEDSIDE ASSESSING PATIENT
[2024-03-29 08:05] LABS: Thyroid Stimulating Hormone 2.07 uIU/mL (0.55-4.78)
[2024-03-29] MEDS: SODIUM CHLORIDE 0.9% 250 ML 250 ML 999 ML IV (08:21)
[2024-03-29] MEDS: ENOXAPARIN SOD INJ 40 MG/0.4 ML SYRINGE SC (08:24)
--- NOTE | 2024-03-29 08:58 | PC.NURSE ---
PER ADMINISTERED 250ML OF NS,RECHECK BP 93/[address] DE LA PAZ AT BEDSIDE
[2024-03-29] MEDS: Magnesium Sulfate 2 GM Ivpb 2 GM/50 ML BAG IV ×2 (09:09→11:46)
[2024-03-29 10:45] LABS: Creatine Kinase 875 U/L (34-171)
--- NOTE | 2024-03-29 11:10 | PD.RESPRO ---
Documentation for date of: 03/29/24 Subjective Subjective Interval history: The patient was interviewed and examined at the bedside this morning. He reported doing well. He denied any lightheadedness, headache, chest pain, SOB, fever or chills, any leg swelling, nausea or vomiting. Overnight, patient had straight cath x 2 and around 1000 cc urine was removed. Exam Vital Signs Temp Pulse Resp BP Pulse Ox O2 Del Method 97.6 F 81 18 104/65 95 Room Air 03/29/24 08:56 03/29/24 10:13 03/29/24 10:13 03/29/24 10:13 03/29/24 08:00 03/29/24 08:00 Narrative Exam General: Elderly, well-nourished, cooperative, no acute distress, Alert and Oriented x 3 HEENT: Moist mucous membranes, oropharynx clear, flushed face Neck: Supple, No masses, No JVD CVS: S1S2 Regular rate and rhythm, No murmurs, rubs or gallops Lungs: Clear to auscultation with no accessory use, no wheeze no rhonchi Abd: Soft, NT/ND, +BS, no organomegaly Ext: No edema, warm and well perfused Skin: No rash Psych: Appropriate mood and affect Objective Labs 03/29/24 05:21 03/29/24 05:21 Labs: Laboratory Results - last 24 hr 03/28/24 03/28/24 03/28/24 11:24 12:33 12:57 WBC 21.5 H RBC 4.66 Hgb 12.8 L Hct 38.4 L MCV 82 MCH 27.5 MCHC 33.3 RDW Std Deviation 42.2 Plt Count 184 Neut % (Auto) 82 H Lymph % (Auto) 3 L [place] % (Auto) 8 Eos % (Auto) 0 Baso % (Auto) 0 Neut # (Auto) 17.5 H Lymph # (Auto) 0.7 L [place] # (Auto) 1.7 H Eos # (Auto) 0.0 Baso # (Auto) 0.0 Immature Gran # (Auto) 1.45 H Absolute Nucleated RBC 0.00 Immature Gran % 7 H Nucleated RBC % 0 PT 13.1 H INR 1.2 APTT 31.6 Sodium 136 Potassium 4.5 Chloride 101 Carbon Dioxide 24.0 Anion Gap 11 BUN 40 H Creatinine 1.8 H Estim Creat Clear Calc 43.1 L eGFR 40 L BUN/Creatinine Ratio 22 H Glucose [address] Glu mg/dL Hemoglobin A1c Calculated Osmolality 285 Lactic Acid 3.7 H Calcium 10.0 Corrected Calcium 10.0 Phosphorus Magnesium 1.6 Total Bilirubin 1.1 Direct Bilirubin AST 36 H ALT 19 Alkaline Phosphatase 82 Lactate Dehydrogenase 210 Total Creatine Kinase 862 H Troponin I < 0.020 B-Natriuretic Peptide 199 H Total Protein 7.4 Albumin 4.9 H Globulin 2.5 Albumin/Globulin Ratio 2.0 Triglycerides Cholesterol LDL Cholesterol, Calc HDL Cholesterol Cholesterol/HDL Ratio Procalcitonin 6.80 H TSH Ur Collection Type Clean Catch Urine Color Yellow Urine Clarity Turbid A Urine pH 5.5 Ur Specific [place] 1.018 Urine Protein 2+ A Urine Glucose (UA) Negative Urine Ketones Negative Urine Blood 1+ A Urine Nitrite Positive Urine Bilirubin Negative Urine Urobilinogen (Auto) Negative Ur Leukocyte Esterase Positive Urine RBC 6 H Urine WBC 156 H Ur Squamous Epith Cells < 1 Urine Bacteria 1+ A Urine Opiates Screen Negative Urine Fentanyl Screen Negative Ur Barbiturates Screen Negative U Amphetamin/Meth Scrn Negative U Benzodiazepines Scrn Negative U Cocaine Metab Screen Negative U Marijuana (THC) Screen Negative 03/28/24 03/28/24 03/29/24 15:48 23:30 05:21 WBC 12.1 H D RBC 3.71 L Hgb 10.2 L D Hct 30.4 L MCV 82 MCH 27.5 MCHC 33.6 RDW Std Deviation 42.5 Plt Count 117 L D Neut % (Auto) 80 Lymph % (Auto) 3 L [place] % (Auto) 10 Eos % (Auto) 0 Baso % (Auto) 0 Neut # (Auto) 9.6 H Lymph # (Auto) 0.4 L [place] # (Auto) 1.2 H Eos # (Auto) 0.0 Baso # (Auto) 0.0 Immature Gran # (Auto) 0.82 H Absolute Nucleated RBC 0.00 Immature Gran % 7 H Nucleated RBC % 0 PT INR APTT Sodium 137 Potassium 3.9 D Chloride 107 Carbon Dioxide 16.9 L Anion Gap 13 BUN 35 H Creatinine 1.4 H Estim Creat Clear Calc 56.5 L eGFR 54 L BUN/Creatinine Ratio 25 H Glucose [address] Glu mg/dL 123 Hemoglobin A1c 5.9 Calculated Osmolality 283 Lactic Acid 1.4 Calcium 8.6 Corrected Calcium Phosphorus 2.3 L Magnesium 1.4 L Total Bilirubin 0.7 Direct Bilirubin 0.4 H AST 42 H ALT 17 Alkaline Phosphatase 68 Lactate Dehydrogenase Total Creatine Kinase 1250 H D 1159 H D 875 H D Troponin I B-Natriuretic Peptide Total Protein 5.9 Albumin 3.8 D Globulin Albumin/Globulin Ratio Triglycerides 104 Cholesterol < 50 L LDL Cholesterol, Calc 19 HDL Cholesterol < 10 L Cholesterol/HDL Ratio 5.0 Procalcitonin TSH 2.07 Ur Collection Type Urine Color Urine Clarity Urine pH Ur Specific [place] Urine Protein Urine Glucose (UA) Urine Ketones Urine Blood Urine Nitrite Urine Bilirubin Urine Urobilinogen (Auto) Ur Leukocyte Esterase Urine RBC Urine WBC Ur Squamous Epith Cells Urine Bacteria Urine Opiates Screen Urine Fentanyl Screen Ur Barbiturates Screen U Amphetamin/Meth Scrn U Benzodiazepines Scrn U Cocaine Metab Screen U Marijuana (THC) Screen Quality Measures Quality Measures none Advance care planning discussed with:: patient Assessment & Plan Assessment Current Active Medications: Generic Name Dose Route Start Last Admin Trade Name Freq PRN Reason Stop Dose Admin Acetaminophen 650 mg 03/28/24 15:56 03/29/24 04:22 Acetaminophen 325 Mg Tablet PO 04/27/24 15:55 650 mg Q6H PRN Administration PAIN SCALE 1-3 (mild Atorvastatin Calcium 40 mg 03/28/24 21:00 03/28/24 21:11 Atorvastatin Calcium 20 Mg Tablet PO 04/27/24 20:59 40 mg HS MARSHAL Administration Azithromycin 250 mg 03/29/24 16:00 Azithromycin 250 Mg Tablet PO 04/02/24 04:00 QDAY@1600 MARSHAL Cyclobenzaprine HCl 10 mg 03/28/24 16:20 03/28/24 17:40 Cyclobenzaprine 5 Mg Tablet PO 04/27/24 16:19 10 mg QDAY@1300 MARSHAL Administration Dextrose 25 ml 03/28/24 16:01 Dextrose 50%-Water Inj 50 Ml Syringe IV 04/27/24 16:00 Q15MIN PRN BG 50-70 responsive npo pt Dextrose 50 ml 03/28/24 16:01 Dextrose 50%-Water Inj 50 Ml Syringe IV 04/27/24 16:00 Q15MIN PRN BG <50 OR BG <70 & pt unresponsive Enoxaparin Sodium 40 mg 03/28/24 16:00 03/29/24 08:24 Enoxaparin Sod Inj 40 Mg/0.4 Ml Syringe SC 04/11/24 15:59 40 mg QDAY MARSHAL Administration Glucagon 1 mg 03/28/24 16:01 Glucagon Inj 1 Mg Vial IM Q15MIN PRN BG <70, and no IV access Ceftriaxone Sodium/Dextrose 50 mls @ 100 mls/hr 03/29/24 14:00 Rocephin/D5w 1gm Iv Premix IV 04/05/24 13:59 QDAY@1400 MARSHAL Magnesium Sulfate 2 gm in 50 mls @ 25 mls/hr 03/29/24 10:47 Magnesium Sulfate Ivpb IV 03/29/24 12:46 X1 ONE Insulin Glargine 5 unit 03/28/24 21:00 03/28/24 21:07 Insulin Glargine (Lantus) 5 Unit/0.05 Ml (Per 5 Units) SC 04/27/24 20:59 Not Given HS [facility] Insulin Human Lispro 0 unit 03/28/24 17:00 03/29/24 08:09 Insulin Lispro (Admelog) 1 Unit/0.01 Ml Unit SC 04/27/24 16:59 Not Given ACHS [facility] Protocol Oxybutynin Chloride 5 mg 03/29/24 01:00 03/29/24 01:13 Oxybutynin Chlor 5 Mg Tablet PO 04/28/24 00:59 5 mg BID@0100,1300 [facility] Administration Plan The patient is a 73-year-old male with significant past medical history of hypertension, diabetes mellitus type 2, chronic leucopenia and thrombocytopenia, chronic liver disease and chronic urinary retention who was brought in by ambulance after being found on floor by her . The patient reported having generalized weakness, fever and chills for past 2 days. The patient was admitted to [facility] telemetry unit for further management of sepsis secondary to complicated UTI associated with rhabdomyolysis. #Sepsis 2/2 UTI, Sepsis resolved #Complicated UTI Patient presented with generalized weakness, and was found to have 3/4 SIRS criteria with UTI as source of infection. During presentation pulse 105, temperature 101.4, labs are significant for white count 21.5 Male patient with UA significant for UTI with protein 2+, blood 1+, nitrate positive, leukocyte Estrace positive, RBC 6, WBC 156 with 1+ bacteria -Patient received 3 L IV normal saline bolus -On ceftriaxone 1 g daily 03/28/2024- -On azithromycin 03/28/2024- -Blood, urine and sputum culture ordered, narrow down antibiotics as per results -Daily a.m. labs #Prerenal YEIMI secondary to dehydration, improving #Rhabdomyolysis secondary to immobilization in the ground, improving Less likely postrenal secondary to urinary retention BUN/creatinine ratio 22 suggestive of prerenal etiology BUN 40, creatinine 1.8, GFR 40 and total CK862 that trended up to 1250 Received 3 L IV normal saline bolus in ED -Stopped IVF -CK trended down #Possible bilateral perihilar pneumonia Likely community-acquired with gram-positive bacteria Influenza A and B; and COVID-19 negative -On ceftriaxone and azithromycin as above -Oxygen as needed #Lactic acidosis, resolved Secondary to sepsis -Treat underlying cause that is sepsis -Received 3 L of IV normal saline bolus -Started on maintenance normal saline 100 cc/h #Diabetes mellitus type 2 A1c 5.9 -Started on Lantus 5 units daily at night -SSI lispro ACHS DCed #History of chronic urinary retention Ordered bladder scan and straight cath if volume greater than 400 cc -Bladder scan as needed #Hypertension Patient is on home medication metoprolol succinate 50 Mg daily, lisinopril 40 Mg daily and Lasix 20 Mg daily along with amlodipine 5 Mg daily -Currently blood pressure is stable, we will hold antihypertensive in the setting of sepsis -Monitor blood pressure closely Dispo: Patient admitted to med-telemetry unit for further management of sepsis secondary to complicated UTI DVT prophylaxis: Lovenox Diet: Consistent carb diet CODE STATUS: Full code The patient's management plan was discussed with my attending physician MD Davi Huynh MD, PGY2 Attending Provider Attestation/Addendum I reviewed labs, imaging, EKG, home medications and prior available records. Face to face evaluation was performed by me. I have personally examined the patient and discussed assessment and plan with the IM team. I reviewed the resident note and agree with the plan with exceptions as below. Generalized weakness Fall Sepsis Acute UTI Bilateral pneumonia, lower lobes Leukocytosis YEIMI Mild rhabdomyolysis Thrombocytopenia Started ceftriaxone/azithromycin Sent blood and urine cultures: Pending Started IV hydration. Monitor I's and O's Creatinine improved. Monitor kidney function. Avoid nephrotoxins. Bladder scan. Trend WBC Monitor platelet level and monitor for bleeding Ordered PT evaluation
[2024-03-29] MEDS: CYCLObenzaPRINE 5 MG TABLET 10 MG PO (13:34)
[2024-03-29] MEDS: cefTRIAXone/D5w 1gm IV premix 50 ML IV (13:35)
--- NOTE | 2024-03-29 13:41 | PC.PT ---
PT eval only. Patient is xI with bed mobility, transfers, and ambulation with no DME. Patient is safe to ambulate to the bathroom and in the lo with his or 1 staff assist for safety. RN notified.
--- NOTE | 2024-03-29 15:49 | PC.SS ---
Initial assessment: This is 73 year old male admitted for sepsis secondary to UTI. Patient appeared alert and oriented. Patient informs he lives at home with spouse. Patient confirmed home address to be [address] [place] [id number]. Patient's , Teri was identified as the patient's alternate medical surrogate decision maker. Patient describes to be independent with ADL's. Patient denies use of DME at home. Patient has a CPAP machine at home used during sleep time. Patient's PCP is Dr. Yasmin Montes. Patient is also followed by Dr. Ramírez and Dr. Reyes. Pharmacy of choice is [facility] in [place]. The discharge plan was discussed, and the patient would like to return home once medically cleared. Patient's family to assist with transportation home. No needs identified at this time. director of community services to remain available to address further concerns. D/c plan: home Next of kin: , Teri Padilla,
--- NOTE | 2024-03-29 15:53 | PC.SS ---
Addendum entered by LEE Singletary 03/29/24 15:55: SS update: Patient requested home health for PT, no preferred agency. Original Note: Rounding note: Patient is pending urine and blood cultures. Possible discharge tomorrow.
[2024-03-29] MEDS: AZITHROMYCIN 250 MG TABLET PO (18:04)
[2024-03-29] MEDS: ATORVASTATIN CALCIUM 20 MG TABLET 40 MG PO (20:59)
[2024-03-30] VITALS (12 sets, daily range): BP systolic 110–139; BP diastolic 68–78; PULSE 80–103; RESP 16–96; TEMP 36.6–37.3; O2SAT 93–100; BMI 31.1
[2024-03-30] MEDS: OXYBUTYNIN CHLOR 5 MG TABLET PO ×2 (01:24→14:17)
[2024-03-30 05:55] LABS: Basophils % (Auto) 1 % (0-2.5); Eosinophils % (Auto) 0 % (0-10); Hematocrit 28.9 % (41.0-53.0); Hemoglobin 9.7 g/dL (13.5-16.0); Immature Granulocytes % (Auto) 6 % (0-0); Immature Granulocytes Auto 0.29 Thou/mm3 (0.00-0.00); Lymphocytes # (Auto) 0.7 Thou/mm3 (1.0-4.8); Lymphocytes % (Auto) 13 % (10-50); Mean Corpuscular HGB Conc 33.6 g/dl (31.0-37.0); Mean Corpuscular Hemoglobin 27.6 pg (25.0-35.0); Mean Corpuscular Volume 82 fL (80-100); Monocytes # (Auto) 0.9 Thou/mm3 (0.0-0.8); Monocytes % (Auto) 18 % (0-12); Neutrophils % (Auto) 62 % (37-80); Nucleated Red Blood Cell % 0 /100 WBC (0); Platelet Count 131 Thou/mm3 (140-440); RDW Standard Deviation 43.8 fL (35.1-43.9); Red Blood Count 3.51 Miln/mm3 (4.50-5.90); White Blood Count 4.8 Thou/mm3 (3.8-10.6)
[2024-03-30 06:32] LABS: Anion Gap 11 (7-16); BUN/Creatinine Ratio 24 Ratio (12-20); Blood Urea Nitrogen 26 mg/dL (9-23); Calcium 8.7 mg/dL (8.3-10.6); Carbon Dioxide 21.3 mMol/L (20.0-31.0); Chloride 106 mMol/L (98-107); Creatinine (Component) 1.1 mg/dL (0.6-1.3); Estimated Creatinine Clearance 71.9 mL/min (>60); Glucose 116 mg/dL (74-106); Magnesium 1.6 mg/dL (1.6-2.6); Osmolality,Calculated 281 (275-295); Phosphorous 2.2 mg/dL (2.4-5.1); Sodium 138 mMol/L (136-145); eGFR > 60 See Note
[2024-03-30] MEDS: ENOXAPARIN SOD INJ 40 MG/0.4 ML SYRINGE SC (09:17)
[2024-03-30] MEDS: Magnesium Sulfate 4 GM Ivpb 4 GM/50 ML BAG IV (09:27)
[2024-03-30] MEDS: NAPH,KPH MBDB 1 PACKET (1.5 GM) PO (09:27)
--- NOTE | 2024-03-30 10:32 | PC.NURSE ---
PATIENT WAS FEELING SOB 92% ON ROOM AIR, NOTIFIED DR. MEAD AND PLACED PATIENT ON NC2L
[2024-03-30] MEDS: CYCLObenzaPRINE 5 MG TABLET 10 MG PO (13:56)
[2024-03-30] MEDS: cefTRIAXone/D5w 1gm IV premix 50 ML IV (13:56)
--- NOTE | 2024-03-30 15:24 | PC.SS ---
Rounding note: pending urine cultures, possible d/c tomorrow.
--- NOTE | 2024-03-30 15:56 | PC.NURSE ---
SPOKE TO DR. GAMBOA REGARDING PATIENT SHORTNESS OF BREATH, FATIGUE & WEAKNESS PATIENT ON 2LNC O2 97% BP 126/76 HR86, STATES HE WILL SPEAK TO DR MEAD REGARDING PLAN
[2024-03-30] MEDS: ALBUTEROL/IPRATROPIUM (Duoneb) RT SOL 3 ML NEBU INH ×2 (16:26→20:13)
[2024-03-30] MEDS: Furosemide 20 MG TABLET PO (16:27)
[2024-03-30] MEDS: AZITHROMYCIN 250 MG TABLET PO (16:27)
[2024-03-30] MEDS: guaiFENesin/DM 10 ML UDC PO (20:13)
[2024-03-30] MEDS: ATORVASTATIN CALCIUM 20 MG TABLET 40 MG PO (20:14)
--- NOTE | 2024-03-30 20:21 | ESPR_ITS ---
Documentation for date of: 03/30/24 Subjective Subjective Interval history: The patient was interviewed and examined at the bedside. He reported mild cough and SOB. He was started on oxygen via NC 2 L. Later, he was started on DuoNeb 3 times daily. His vitals were stable. His CBC has been at baseline, platelet trended down to 131 likely secondary to underlying condition. Chemistry panel and electrolytes was significant for phosphorus 2.2 and magnesium 1.6, and both were repleted. We will continue to treat the patient with ceftriaxone and azithromycin, and cultures are pending. Exam Vital Signs Temp Pulse Resp BP Pulse Ox O2 Del Method O2 Flow Rate 98.6 F 83 25 H 126/76 100 Room Air 2 03/30/24 16:00 03/30/24 16:28 03/30/24 16:28 03/30/24 16:27 03/30/24 16:28 03/30/24 16:00 03/30/24 16:28 Narrative Exam General: Elderly, well-nourished, cooperative, no acute distress, Alert and Oriented x 3 HEENT: Moist mucous membranes, oropharynx clear, flushed face Neck: Supple, No masses, No JVD CVS: S1S2 Regular rate and rhythm, No murmurs, rubs or gallops Lungs: Clear to auscultation with no accessory use, no wheeze no rhonchi Abd: Soft, NT/ND, +BS, no organomegaly Ext: No edema, warm and well perfused Skin: No rash Psych: Appropriate mood and affect Objective Labs 03/31/24 04:46 03/31/24 04:46 Labs: Laboratory Results - last 24 hr 03/30/24 05:10 WBC 4.8 D RBC 3.51 L Hgb 9.7 L Hct 28.9 L MCV 82 MCH 27.6 MCHC 33.6 RDW Std Deviation 43.8 Plt Count 131 L Neut % (Auto) 62 Lymph % (Auto) 13 Waldo % (Auto) 18 H Eos % (Auto) 0 Baso % (Auto) 1 Neut # (Auto) 3.0 Lymph # (Auto) 0.7 L Waldo # (Auto) 0.9 H Eos # (Auto) 0.0 Baso # (Auto) 0.0 Immature Gran # (Auto) 0.29 H Absolute Nucleated RBC 0.00 Immature Gran % 6 H Nucleated RBC % 0 Sodium 138 Potassium 4.0 Chloride 106 Carbon Dioxide 21.3 Anion Gap 11 BUN 26 H Creatinine 1.1 Estim Creat Clear Calc 71.9 eGFR > 60 BUN/Creatinine Ratio 24 H Glucose 116 H Calculated Osmolality 281 Calcium 8.7 Phosphorus 2.2 L Magnesium 1.6 Quality Measures Quality Measures none Advance care planning discussed with:: patient and spouse Assessment & Plan Assessment Current Active Medications: Generic Name Dose Route Start Last Admin Trade Name Freq PRN Reason Stop Dose Admin Acetaminophen 650 mg 03/28/24 15:56 03/29/24 04:22 Acetaminophen 325 Mg Tablet PO 04/27/24 15:55 650 mg Q6H PRN Administration PAIN SCALE 1-3 (mild Albuterol/Ipratropium 3 ml 03/30/24 19:00 03/30/24 20:13 Albuterol/Ipratropium (Duoneb) Rt Lissett 3 Ml Nebu INH 04/29/24 18:59 3 ml Q6HRRT MARSHAL Administration Atorvastatin Calcium 40 mg 03/28/24 21:00 03/30/24 20:14 Atorvastatin Calcium 20 Mg Tablet PO 04/27/24 20:59 40 mg HS MARSHAL Administration Azithromycin 250 mg 03/29/24 16:00 03/30/24 16:27 Azithromycin 250 Mg Tablet PO 04/02/24 04:00 250 mg QDAY@1600 MARSHAL Administration Cyclobenzaprine HCl 10 mg 03/28/24 16:20 03/30/24 13:56 Cyclobenzaprine 5 Mg Tablet PO 04/27/24 16:19 10 mg QDAY@1300 MARSHAL Administration Enoxaparin Sodium 40 mg 03/28/24 16:00 03/30/24 09:17 Enoxaparin Sod Inj 40 Mg/0.4 Ml Syringe SC 04/11/24 15:59 40 mg QDAY MARSHAL Administration Furosemide 20 mg 03/30/24 16:15 03/30/24 16:27 Furosemide 20 Mg Tablet PO 04/29/24 16:14 20 mg QDAY MARSHAL Administration Guaifenesin/Dextromethorphan 10 ml 03/30/24 21:00 03/30/24 20:13 Guaifenesin/Dm 10 Ml Udc PO 04/29/24 20:59 10 ml BID MARSHAL Administration Protocol Ceftriaxone Sodium/Dextrose 50 mls @ 100 mls/hr 03/29/24 14:00 03/30/24 13:56 Rocephin/D5w 1gm Iv Premix IV 04/05/24 13:59 100 mls/hr QDAY@1400 [facility] Administration Insulin Glargine 5 unit 03/28/24 21:00 03/29/24 21:05 Insulin Glargine (Lantus) 5 Unit/0.05 Ml (Per 5 Units) SC 04/27/24 20:59 Not Given HS MARSHAL Oxybutynin Chloride 5 mg 03/29/24 01:00 03/30/24 14:17 Oxybutynin Chlor 5 Mg Tablet PO 04/28/24 00:59 5 mg BID@0100,1300 [facility] Administration Plan The patient is a 73-year-old male with significant past medical history of hypertension, diabetes mellitus type 2, chronic leucopenia and thrombocytopenia, chronic liver disease and chronic urinary retention who was brought in by ambulance after being found on floor by her . The patient reported having generalized weakness, fever and chills for past 2 days. The patient was admitted to [facility] telemetry unit for further management of sepsis secondary to complicated UTI associated with rhabdomyolysis. #Sepsis 2/2 complicated UTI, sepsis resolved #Complicated UTI Patient presented with generalized weakness, and was found to have 3/4 SIRS criteria with UTI as source of infection. During presentation pulse 105, temperature 101.4, labs are significant for white count 21.5 Male patient with UA significant for UTI with protein 2+, blood 1+, nitrate positive, leukocyte Estrace positive, RBC 6, WBC 156 with 1+ bacteria -Patient received 3 L IV normal saline bolus -Started on ceftriaxone 1 g daily 03/28/2024- -Started on azithromycin 03/28/2024- -Blood, urine and sputum culture ordered, narrow down antibiotics as per results -Daily a.m. labs #Prerenal YEIMI secondary to dehydration, resolved #Rhabdomyolysis secondary to immobilization in the ground Less likely postrenal secondary to urinary retention BUN/creatinine ratio 22 suggestive of prerenal etiology BUN 40, creatinine 1.8, GFR 40 and total CK862 that trended up to 1250 -Received 3 L IV normal saline bolus -Started on maintenance IV normal saline 100 cc/h -Trend total CK until delta is achieved #Possible bilateral perihilar pneumonia Likely community-acquired with gram-positive bacteria Influenza A and B; and COVID-19 negative -On ceftriaxone and azithromycin as above -Oxygen as needed #Lactic acidosis, resolved Secondary to sepsis -Treat underlying cause that is sepsis -Received 3 L of IV normal saline bolus -Started on maintenance normal saline 100 cc/h #Diabetes mellitus type 2 Ordered A1c -Started on Lantus 5 units daily at night -Discontinued SSI lispro ACHS #History of chronic urinary retention Ordered bladder scan and straight cath if volume greater than 400 cc -Bladder scan as needed #Hypertension Patient is on home medication metoprolol succinate 50 Mg daily, lisinopril 40 Mg daily and Lasix 20 Mg daily along with amlodipine 5 Mg daily -Currently blood pressure is stable, we will hold antihypertensive in the setting of sepsis -Monitor blood pressure closely Dispo: Patient admitted to med-telemetry unit for further management of sepsis secondary to complicated UTI DVT prophylaxis: Lovenox Diet: Consistent carb diet CODE STATUS: Full code The patient's management plan was discussed with my attending physician MD Davi Alvarez MD, PGY2 Attending Provider Attestation/Addendum I have examined the patient, reviewed labs and imaging findings, discussed the case with the resident(s), and reviewed entered orders. I agree with the plan of care as outlined in this note, with these additional summaries/recommendations: Patient seen at bedside. No acute overnight events. Patient reports mild improvement in generalized weakness. Patient was diagnosed with sepsis secondary to complicated UTI +/- perihilar pneumonia. Blood cultures show no growth at 48 hours. Sputum and urine culture pending. Continue IV Rocephin and azithromycin. Patient was evaluated by physical therapy and recommends patient is safe for home discharge when medically cleared. Mild hypophosphatemia present and replacement given. YEIMI on admission now resolved and creatinine 1.1. Patient was noted to have rhabdomyolysis on admission although CK did not reach 5000 and no evidence of heme pigment induced nephropathy at this time. Patient has urinary retention and continue to cath as needed. Repeat hematology and chemistry panel in AM. Dr. Emery
[2024-03-31] VITALS (8 sets, daily range): BP systolic 112–119; BP diastolic 69–80; PULSE 72–90; RESP 16–97; TEMP 36.6–37.2; O2SAT 93–100
[2024-03-31] MEDS: OXYBUTYNIN CHLOR 5 MG TABLET PO ×2 (00:55→12:14)
[2024-03-31] MEDS: ALBUTEROL/IPRATROPIUM (Duoneb) RT SOL 3 ML NEBU INH ×3 (02:59→12:53)
[2024-03-31 05:59] LABS: Basophils % (Auto) 1 % (0-2.5); Eosinophils % (Auto) 0 % (0-10); Hematocrit 29.3 % (41.0-53.0); Hemoglobin 9.7 g/dL (13.5-16.0); Immature Granulocytes % (Auto) 3 % (0-0); Immature Granulocytes Auto 0.07 Thou/mm3 (0.00-0.00); Lymphocytes # (Auto) 0.7 Thou/mm3 (1.0-4.8); Lymphocytes % (Auto) 25 % (10-50); Mean Corpuscular HGB Conc 33.1 g/dl (31.0-37.0); Mean Corpuscular Hemoglobin 27.1 pg (25.0-35.0); Mean Corpuscular Volume 82 fL (80-100); Monocytes # (Auto) 0.4 Thou/mm3 (0.0-0.8); Monocytes % (Auto) 15 % (0-12); Neutrophils # (Auto) 1.6 Thou/mm3 (1.8-7.7); Neutrophils % (Auto) 57 % (37-80); Nucleated Red Blood Cell % 0 /100 WBC (0); Platelet Count 112 Thou/mm3 (140-440); RDW Standard Deviation 43.9 fL (35.1-43.9); Red Blood Count 3.58 Miln/mm3 (4.50-5.90)
[2024-03-31 06:06] LABS: White Blood Count 2.8 Thou/mm3 (3.8-10.6)
[2024-03-31 06:24] LABS: Anion Gap 11 (7-16); BUN/Creatinine Ratio 22 Ratio (12-20); Blood Urea Nitrogen 20 mg/dL (9-23); Calcium 8.7 mg/dL (8.3-10.6); Carbon Dioxide 22.2 mMol/L (20.0-31.0); Chloride 105 mMol/L (98-107); Creatinine (Component) 0.9 mg/dL (0.6-1.3); Estimated Creatinine Clearance 88.7 mL/min (>60); Glucose 133 mg/dL (74-106); Osmolality,Calculated 280 (275-295); Phosphorous 2.9 mg/dL (2.4-5.1); Potassium 3.5 mMol/L (3.4-5.1); Sodium 138 mMol/L (136-145); eGFR > 60 See Note
[2024-03-31] MEDS: ENOXAPARIN SOD INJ 40 MG/0.4 ML SYRINGE SC (09:18)
[2024-03-31] MEDS: Furosemide 20 MG TABLET PO (09:19)
[2024-03-31] MEDS: POTASSIUM CHLORIDE 20 mEq TABCR 40 MEQ PO (09:19)
[2024-03-31] MEDS: guaiFENesin/DM 10 ML UDC PO (09:19)
[2024-03-31] MEDS: CYCLObenzaPRINE 5 MG TABLET 10 MG PO (12:14)
[2024-03-31] MEDS: cefTRIAXone/D5w 1gm IV premix 50 ML IV (14:46)
--- NOTE | 2024-03-31 19:39 | PD.RESDS ---
Planned Discharge Date 03/31/24 DS: Providers Provider Date of admission: 03/28/24 15:49 Primary care physician: Vannesa Montes MD Admitting Provider: Ernesto Aguila MD Attending Provider on Admission: Man Emery MD Consults: 03/28/24 15:42 Referral Physical Therapy Stat Comment: weakness Physician Instructions: Attending Provider on DC: Davi Lovett MD Discharging Provider: Davi Lovett MD DS: Diagnosis Problem List Completed Was Problem List Reviewed/Reconciled?: Yes Hospital Course Hospital Course Hospital course: The patient is a 73-year-old male with significant past medical history of hypertension, diabetes mellitus type 2, chronic leucopenia and thrombocytopenia, chronic liver disease and chronic urinary retention who was brought in by ambulance after being found on floor by her . The patient reported having generalized weakness, fever and chills for past 2 days. The patient was admitted to [facility] telemetry unit for further management of sepsis secondary to complicated UTI associated with rhabdomyolysis. He received 3L of bolus IV NS, and was started on rocephin and azithromycin. The patient was found to have MRSA pneumonia on culture of sputum. He was discharged on oral Moxifloxacin 400mg daily for 7 days. Problems: #Sepsis 2/2 complicated UTI #Complicated UTI #Prerenal YEIMI secondary to dehydration, resolved #Rhabdomyolysis secondary to immobilization in the ground #Bilateral perihilar MRSA pneumonia #Lactic acidosis, resolved #Diabetes mellitus type 2 #History of chronic urinary retention #Hypertension Plans: Please follow-up with your PCP within 1 week of discharge. Follow-up with receiving barn custodian/oncologist for low white blood count within a week -Started on Moxifloxacin 400mg daily for 7 days. -Continue taking all your medicines as prescribed -Recommended to return back to emergency department if your symptoms persist or worsens. The patient's management plan was discussed with my attending physician MD Davi Alvarez MD, PGY2 Time Spent with Patient Time attestation: Total time spent providing and/or coordinating discharge services: > 35 minutes Exam Vital Signs Temp Pulse Resp BP Pulse Ox O2 Del Method O2 Flow Rate 97.9 F 83 16 112/70 100 Nasal Cannula 2 03/31/24 12:00 03/31/24 12:53 03/31/24 12:53 03/31/24 12:00 03/31/24 12:53 03/31/24 12:00 03/31/24 12:00 Narrative Exam General: Elderly, well-nourished, cooperative, no acute distress, Alert and Oriented x 3 HEENT: Moist mucous membranes, oropharynx clear, flushed face Neck: Supple, No masses, No JVD CVS: S1S2 Regular rate and rhythm, No murmurs, rubs or gallops Lungs: Clear to auscultation with no accessory use, mild expiratory wheeze, no rhonchi Abd: Soft, NT/ND, +BS, no organomegaly Ext: No edema, warm and well perfused Skin: No rash Psych: Appropriate mood and affect Discharge Plan Plan Patient Disposition: HOME (Self Care) Patient condition on transfer: Stable Care Plan Goals: Please follow-up with your PCP within 1 week of discharge. Follow-up with receiving barn custodian/oncologist for low white blood count within a week -Started on Moxifloxacin 400mg daily for 7 days. -Continue taking all your medicines as prescribed -Recommended to return back to emergency department if your symptoms persist or worsens. Prescriptions/Referrals Prescriptions/Med Rec: New moxifloxacin 400 mg tablet 400 mg PO QDAY Qty: 7 0RF Rx Instructions: Please call the patient for new medication prescription. Thank you. Continued rosuvastatin [Crestor] 10 MG tablet 10 mg PO QPM Qty: 0 Rx Instructions: 1 pm meloxicam 15 mg Tablet 15 mg PO QDAY Hold Instructions: Resume on 01/01/24. Rx Instructions: 1 am amlodipine 10 mg Tablet 5 mg PO DAILY Rx Instructions: 1 pm metoprolol succinate 25 mg Tablet Extended Release 24 Hr 50 mg PO QPM Rx Instructions: 1 pm lisinopril 40 mg Tablet 40 mg PO QDAY Rx Instructions: 1 am cyclobenzaprine 10 mg tablet 10 mg PO QDAY Hold Instructions: Resume on 01/01/24. Patient Comments: TAKE 1 TABLET BY MOUTH DAILY AT BEDTIME NEEDED Rx Instructions: @ 1pm metformin 1,000 mg tablet 1,000 mg PO BID Patient Comments: TAKE 1 TABLET BY MOUTH TWICE DAILY WITH A MEAL Rx Instructions: 1 am and 1 pm oxybutynin chloride 5 mg tablet 5 mg PO BID Patient Comments: GENERIC FOR DITROPAN... TAKE 1 TABLET BY MOUTH TWICE DAILY FOR BLADDER Rx Instructions: 1 am & 1 pm vitamin A-vitamin C-vit E-min Tablet 1 tab PO QDAY furosemide [Lasix] 20 mg Tablet 20 mg PO DAILY Rx Instructions: 1 PM potassium chloride 10 mEq Tablet Extended Release 10 meq PO QDAY Rx Instructions: 1 am peg 3350-electrolytes [Golytely] 236-22.74-6.74 -5.86 gram recon soln 240 ml PO Q1H Qty: 4000 0RF Rx Instructions: until fecal effluent is clear ibuprofen 800 mg Tablet 800 mg PO Q8H PRN (Reason: knee pain) Referrals: Vannesa Montes MD [Primary Care Provider] - Patient/Caregiver Discharge Instructions Discharge Activity: activity as tolerated Education Materials: Chest and Lung Problems, Rhabdomyolysis Print Language: Togolese Stand Alone Forms: Deepti Award Info., Patient Portal Info Letter Discharge Order Discharge Orders: Discharge (Routine); Ordered 03/31/24 Ordered By: Nabil Mcpherson Quality Discharge Quality Measures VTE prophylaxis Attestestation MD Attestation I have examined the patient, reviewed labs and imaging findings, discussed the case with the resident(s), and reviewed entered orders. I agree with the plan of care as outlined in this note. Dr. Emery
== END 2024-03-31 15:50 | disposition home or self-care (01) | DRG 871 ==
LOC: SERX 14:46 → SERHOLD 16:34 → S3SX 20:32
PROVIDERS: Registered Nurse General Practice; Student in an Organized Health Care Education/Training Program; Admitting Provider Student in an Organized Health Care Education/Training Program; Emergency Provider Emergency Medicine; PCP Family Medicine; Visit Provider Student in an Organized Health Care Education/Training Program
DX: A41.9 Sepsis, unspecified organism (principal); J15.212 Pneumonia due to Methicillin resistant Staphylococcus aureus; N39.0 Urinary tract infection, site not specified; N17.9 Acute kidney failure, unspecified; M62.82 Rhabdomyolysis; I10 Essential (primary) hypertension; E11.9 Type 2 diabetes mellitus without complications; D69.6 Thrombocytopenia, unspecified; D72.819 Decreased white blood cell count, unspecified; K76.9 Liver disease, unspecified; E86.0 Dehydration; E83.39 Other disorders of phosphorus metabolism
CPT/HCPCS: 36415; 70450; 71045; 72125; 80048; 80053; 80061; 80076; 80307; 81001; 82550; 83036; 83605; 83615; 83735; 83880; 84100; 84145; 84443; 84484; 85025; 85610; 85730; 87040; 87077; 87086; 87186; 87205; 87400; 87811; 89220; 93005; 93225; 94640; 94664; 96361; 96365; 96372; 97162; 99285; A9270; J0696; J1650; J3475; J7030; J7050

== ENCOUNTER → 2024-04-07 | Outpatient (CLI) | payer MEDICARE, BC, SELFPAY ==
[2024-04-07 20:31] LABS: PSA Medicare Annual Scrn 2.29 ng/mL (0-4.00)
== END | disposition home or self-care (01) ==
PROVIDERS: PCP Family Medicine; Referring Provider Internal Medicine; Visit Provider Specialist
DX: R35.1 Nocturia (principal); R10.13 Epigastric pain
CPT/HCPCS: 36415; 83013; 83014; 84153; G0103

== ENCOUNTER → 2024-04-25 | Outpatient (CLI) | payer MEDICARE, BC, SELFPAY ==
[2024-04-25 11:47] LABS: Urea Breath Test Negative (Negative)
== END | disposition home or self-care (01) ==
LOC: COPL 09:53
PROVIDERS: PCP Family Medicine; Referring Provider Specialist; Visit Provider Specialist
DX: R10.13 Epigastric pain (principal)
CPT/HCPCS: 83013; 83014

== ENCOUNTER 2024-05-02 11:25 | Inpatient (IN) | payer MEDICARE, BC, SELFPAY ==
[2024-05-02] VITALS (11 sets, daily range): BP systolic 111–128; BP diastolic 59–85; PULSE 69–104; RESP 16–97; TEMP 36.5–39.6; O2SAT 93–98; BMI 29.0; BMI 30.1
--- NOTE | 2024-05-02 12:10 | XR_ITS ---
Examination: PA lateral chest 2 views TECHNIQUE: Upright PA lateral chest 2 views Exam date and time: May 02, 2024 1215 hours INDICATIONS: Coughing beginning 3 days ago. FINDINGS: Moderate hyperexpansion Accentuation basilar bronchovascular markings Normal heart size No lobar pneumonia IMPRESSION: COPD Basilar bronchitis pattern
--- NOTE | 2024-05-02 12:10 | PD.EDRME ---
Rapid Medical Screening Exam E Arrival date/time: 05/02/24 11:25 73-year-old male with history of hypertension and diabetes with history of urinary retention presents emergency department complains of frequent urination fever and generalized bodyaches Chief Complaint: Weakness Vital signs: Vital Signs Temperature 101 F H 05/02/24 12:03 Pulse Rate 104 H 05/02/24 12:03 Respiratory Rate 18 05/02/24 12:03 Blood Pressure 119/74 05/02/24 12:03 Pulse Oximetry (%) 94 L 05/02/24 12:03 Oxygen Delivery Method Room Air 05/02/24 12:03
--- NOTE | 2024-05-02 12:10 | PC.NURSE ---
sepsis alert called
[2024-05-02] MEDS: ACETAMINOPHEN 500 MG TABLET 1000 MG PO (12:19)
[2024-05-02 12:46] LABS: Lactate (Lactic Acid) 1.3 mMol/L (0.4-2.0)
[2024-05-02 12:49] LABS: Collection Type, Urine Clean Catch
[2024-05-02 12:58] LABS: Basophils % (Auto) 0 % (0-2.5); Eosinophils # (Auto) 0.1 Thou/mm3 (0.0-0.5); Eosinophils % (Auto) 1 % (0-10); Hematocrit 37.6 % (41.0-53.0); Hemoglobin 12.5 g/dL (13.5-16.0); Immature Granulocytes % (Auto) 9 % (0-0); Immature Granulocytes Auto 0.65 Thou/mm3 (0.00-0.00); Lymphocytes # (Auto) 0.6 Thou/mm3 (1.0-4.8); Lymphocytes % (Auto) 9 % (10-50); Mean Corpuscular HGB Conc 33.2 g/dl (31.0-37.0); Mean Corpuscular Volume 81 fL (80-100); Monocytes # (Auto) 0.8 Thou/mm3 (0.0-0.8); Monocytes % (Auto) 11 % (0-12); Neutrophils # (Auto) 5.3 Thou/mm3 (1.8-7.7); Neutrophils % (Auto) 71 % (37-80); Nucleated Red Blood Cell % 0 /100 WBC (0); Platelet Count 100 Thou/mm3 (140-440); RDW Standard Deviation 43.7 fL (35.1-43.9); Red Blood Count 4.63 Miln/mm3 (4.50-5.90); White Blood Count 7.4 Thou/mm3 (3.8-10.6)
[2024-05-02 13:09] LABS: Bilirubin,Urine Negative (Negative); Blood,Urine 1+ (Negative); Clarity,Urine Turbid (Clear/Hazy); Color,Urine Yellow (Lt Yel-Yel); Glucose, Urine Negative (Negative); Ketones,Urine Negative (Negative); Leukocyte Esterase,Urine Positive (Negative); Nitrite,Urine Positive (Negative); Protein,Urine 1+ (Neg - Trace); RBC,Urine 17 /hpf (0-3); Renal Epithelial Cells,Urine 1 /hpf (0-5); Specific Gravity,Urine 1.015 (1.001-1.035); Squamous Epithelial Cell,Urine < 1 /hpf (0-5); Urobilinogen,Urine Negative mg/dL (0.0-1.0); WBC,Urine 885 /hpf (0-5)
[2024-05-02 13:19] LABS: Alanine Aminotransferase 29 U/L (10-49); Albumin, Serum 4.5 gm/dL (3.4-4.8); Albumin/Globulin Ratio 1.8 (1.2-2.2); Alkaline Phosphatase 101 U/L (46-116); Anion Gap 10 (7-16); Aspartate Amino Transferase 24 U/L (0-34); BUN/Creatinine Ratio 25 Ratio (12-20); Bilirubin,Total 1.5 mg/dL (0.3-1.2); Blood Urea Nitrogen 27 mg/dL (9-23); Calcium 9.5 mg/dL (8.3-10.6); Calcium (Corrected) 9.5 mg/dL (8.5-10.1); Carbon Dioxide 22.3 mMol/L (20.0-31.0); Chloride 104 mMol/L (98-107); Creatinine (Component) 1.1 mg/dL (0.6-1.3); Estimated Creatinine Clearance 72.2 mL/min (>60); Globulin 2.5 gm/dL (2.3-3.5); Glucose 182 mg/dL (74-106); Osmolality,Calculated 282 (275-295); Potassium 3.9 mMol/L (3.4-5.1); Procalcitonin 0.23 ng/ml (0.0-0.49); Sodium 136 mMol/L (136-145); eGFR > 60 See Note
--- NOTE | 2024-05-02 14:24 | PD.EDWEAK ---
ED Weakness RME/HPI General Chief complaint: Weakness Stated complaint: WEAKNESS FOR 3 DAYS Time Seen by Provider: 05/02/24 14:28 Arrival date/time: 05/02/24 11:25 RME / HPI RME / HPI Narrative: 05/02/24 11:25 73-year-old male with history of hypertension and diabetes with history of urinary retention presents emergency department complains of frequent urination fever and generalized bodyaches --------- Main ED Evaluation: Patient is a 73-year-old male with past medical history of hypertension, type 2 diabetes, hyperlipidemia, asthma, FAVIOLA, chronic urinary retention secondary to BPH, and osteoarthritis who came to the ED on 05/02/2024 due to a chief complaint of generalized weakness for about 3 days. Patient reports associated increased frequency in urination in the past week such that he is urinating every hour. He feels incomplete emptying of the bladder and is unable to further urinate. Patient also reports nocturia. He denies any dysuria, burning, or pain in the bladder or groin area. He denies fevers at home however here in the ED patient had a fever and patient noted chills starting last night. He denies any nausea, vomiting, abdominal pain, suprapubic pain, or hematuria. Patient states his next follow up with his PCP Dr. Montes is on 05/12/2024. He has not seen a Urologist yet but plan to request for a referral. Patient is taking tamsulosin for his BPH. Related Data Home Medications ?Medication ?Instructions ?Recorded ?Confirmed rosuvastatin 10 mg tablet (Crestor) 10 mg PO QPM #0 tabs 08/27/16 03/30/24 meloxicam 15 mg tablet 15 mg PO QDAY arthritis 02/23/18 03/30/24 amlodipine 10 mg tablet 5 mg PO DAILY 09/12/21 03/30/24 lisinopril 40 mg tablet 40 mg PO QDAY 09/12/21 03/30/24 metoprolol succinate 25 mg 50 mg PO QPM 09/12/21 03/30/24 tablet,extended release 24 hr furosemide 20 mg tablet (Lasix) 20 mg PO DAILY 03/04/22 03/30/24 potassium chloride 10 mEq 10 meq PO QDAY 03/04/22 03/30/24 tablet,extended release cyclobenzaprine 10 mg tablet 10 mg PO QDAY 12/31/23 03/30/24 metformin 1,000 mg tablet 1,000 mg PO BID 12/31/23 03/30/24 oxybutynin chloride 5 mg tablet 5 mg PO BID 12/31/23 03/30/24 vitamin A-vitamin C-vit E-min 1 tab PO QDAY 12/31/23 01/31/24 tablet ibuprofen 800 mg tablet 800 mg PO Q8H PRN knee pain 03/30/24 03/30/24 Previous Rx's ?Medication ?Instructions ?Recorded peg 3350-electrolytes 236 240 ml PO Q1H #4,000 mL 01/31/24 gram-22.74 gram-6.74 gram-5.86 gram solution (Golytely) moxifloxacin 400 mg tablet 400 mg PO QDAY #7 tabs 03/31/24 Allergies Allergy/AdvReac Type Severity Reaction Status Date / Time clams Allergy Severe ANAPHYLAXIS Verified 05/02/24 11:28 oyster extract Allergy Severe Anaphylaxis Verified 05/02/24 11:28 peanut Allergy Severe ANAPHYLAXIS Verified 05/02/24 11:28 Past Medical History Past Medical History Comments PMH COMMENT: Past Medical History: Hypertension, type 2 diabetes, hyperlipidemia, asthma, FAVIOLA, chronic urinary retention secondary to BPH, and osteoarthritis Family History: Positive for CO in father, cancer in mother Surgical History: Right knee arthroscopy, vasectomy Social History: Denies history of smoking, occasional rare alcohol use once every few months, denies recreational drug use Current Medications: Amlodipine 5 mg qday, lisinopril 40 mg qday, metoprolol succinate 50 mg qday, rosuvastatin 10 mg qday, cyclobenzaprine 10 mg qday, meloxicam 15 mg qday, tamsulosin, ibuprofen prn (Source: Patient medication list) Allergies: Clams, oysters, peanuts - anaphylaxis ED Exam Narrative Physical exam: Physical Exam General: Awake and in no acute distress. Conversational, non-toxic appearing however patient actively having chills. HEENT: Normocephalic, atraumatic, mucous membranes moist. Heart: Regular rate and rhythm, no murmurs. Lungs: Clear to auscultation with no wheezing or crackles. Abdomen: Soft, nondistended, nontender, positive bowel sounds. ?No guarding or rebound tenderness. : No suprapubic tenderness. Back: No CVA tenderness. Neurologic: Alert and oriented x3, no gross neurological deficit, and patient able to move all 4 extremities. Extremities: Chronic lower non-pitting extremity edema, L>R which patient states is chronic. Skin: No rash or ecchymoses. Course Quality Measures none Orders Category Date Time Status Bedside Influenza A&B Antigen Test NOW Care 05/02/24 12:10 Completed COVID-19 Screening Questionnaire NOW Care 05/02/24 16:44 Active Decision to Admit X1 Care 05/02/24 16:[address] abdomen pelvis wo con Stat Exams 05/02/24 15:33 Completed XR chest 2V Stat Exams 05/02/24 12:10 Completed Blood Culture (Lab) Stat Lab 05/02/24 12:32 Received CBC Stat Lab 05/02/24 12:32 Completed Comprehensive Metabolic Panel Stat Lab 05/02/24 12:32 Completed Lactate (Lactic Acid) Stat Lab 05/02/24 12:32 Completed Procalcitonin Stat Lab 05/02/24 12:32 Completed Urinalysis Stat Lab 05/02/24 12:42 Completed Urine Culture Stat Lab 05/02/24 12:42 Received Acetaminophen Ivpb [Ofirmev Inj] Med 05/02/24 16:40 Discontinued 1,000 mg in 100 ml IV X1 Acetaminophen Tab [Tylenol ES Tab] Med 05/02/24 12:10 Discontinued 1,000 mg PO X1 ONE Ringers Lactated 1000 ml [Lactated Ringers] 1,000 ml Med 05/02/24 15:14 Discontinued IV 999 mls/hr Ringers Lactated 1000 ml [Lactated Ringers] 1,000 ml Med 05/02/24 15:16 Discontinued IV 999 mls/hr cefTRIAXone [Rocephin] 1,000 mg Med 05/02/24 15:15 Discontinued Sodium Chloride 0.9% [Ns] 50 ml IV X1 Vital Signs Vital signs: Vital Signs Temperature 101 F H 05/02/24 12:03 Pulse Rate 104 H 05/02/24 12:03 Respiratory Rate 18 05/02/24 12:03 Blood Pressure 119/74 05/02/24 12:03 Pulse Oximetry (%) 94 L 05/02/24 12:03 Oxygen Delivery Method Room Air 05/02/24 12:03 Weakness MDM Narrative MDM Narrative:: Sepsis alert was called for temp of 101 and tachycardia. Patient presented with weakness and chills with increased urinary frequency for a few days. In the setting of his BPH, patient has a UTI which has developed into acute pyelonephritis which is evident on the CT abdo/pelvis. UA is showing pyuria and positive nitrites. Patient will need admission for continued IV antibiotics, given refractory high fever and patient with active chills, there is a concern for sepsis and his blood cultures need to be followed. Patient was given IV fluids and IV ceftriaxone here in ED, will give IV tylenol as well. Patient data External records reviewed:: [facility] previous records Clinical information provided by:: patient and spouse Social determinants that could affect healthcare access:: none Patient has the following chronic illnesses:: As above How is presenting disease/condition affected by chronic disease/condition?: caused by Evaluation data The following diagnostics were reviewed and interpreted by me:: lab results and radiology exam(s) Lab and/or radiology exams considered but not ordered:: Ordered Interpretation Summary: CT abdomen and pelvis without contrast Findings: No focal liver or splenic lesions No gallstones No pancreatic mass Left perinephric stranding lower pole left renal cyst cyst 7.5 cm Aorta normal size No bowel obstruction Urinary bladder wall thickening up to 7 mm AP prostate dimension 4.1 cm No renal or ureteral calculi IMPRESSION: Findings most consistent with left pyelonephritis and cystitis ------- CT abd/pelv showing perinephric stranding around left kidney consistent with left pyelonephritis. Labs on CBC show normal range WBC of 7.4 however this seems to be elevated for patient's baseline. Procal and lactic acid are normal. UA shows significant pyuria with 885 WBCs, positive nitrites and leukocyte esterase, however no bacteria on sample. CXR is negative for any acute pneumonias according to my interpretation. Medications / Prescriptions Medications or Prescriptions considered but not ordered:: Given Medication administrations:: Medication Administration History Discontinued Medications Acetaminophen (Acetaminophen 500 Mg Tablet) 1,000 mg PO X1 ONE Stop: 05/02/24 12:11 Last Admin: 05/02/24 12:19 Dose: 1,000 mg Documented By: SIMI Lactated Ringer's (Lactated Ringers) 1,000 mls @ 999 mls/hr IV .Q1H1M ONE Stop: 05/02/24 16:14 Last Admin: 05/02/24 15:48 Dose: 999 mls/hr Documented By: IAN Ceftriaxone Sodium 1,000 mg/ (Sodium Chloride) 50 mls @ 100 mls/hr IV X1 ONE Stop: 05/02/24 15:44 Last Admin: 05/02/24 15:49 Dose: 100 mls/hr Documented By: IAN Lactated Ringer's (Lactated Ringers) 1,000 mls @ 999 mls/hr IV .Q1H1M ONE Stop: 05/02/24 16:16 Acetaminophen (Ofirmev Inj) 1,000 mg in 100 mls @ 250 mls/hr IV X1 ONE Stop: 05/02/24 17:03 Given Consultations Consultation(s) initiated? (list below): Yes Consultation #1 (Physician, Specialty, Details): 16:50 Spoke with hospitalist team, Dr. Mata with attending Dr. Light and discussed patient's presentation, lab results, imaging findings, and course and agrees to assess patient for admission. Diagnosis Weakness Differential Diagnosis: sepsis, dehydration and other Most likely diagnosis given after review of the tests above:: Acute pyelonephritis, UTI Admission Indicated Admission indicated?: indicated Explain why admission is indicated or not indicated:: Sepsis, IV antibiotics, IV fluids Admission Request Was there a request for admission?: Yes Admission Attestation Admission request attestation: Discussed case with [Dr. Mata] from Hospitalist service regarding admission. Discussed patients ED course, exam findings, labs, and radiology results. The Hospitalist [agrees] to accept the patient for admission. Disposition Plan Disposition Plan: Admit Discharge Plan Plan Patient Disposition: Admit Acute Care w/in Hospital Patient condition on transfer: Stable Prescriptions/Referrals Prescriptions/Med Rec: No Action rosuvastatin [Crestor] 10 MG tablet 10 mg PO QPM Qty: 0 Rx Instructions: 1 pm meloxicam 15 mg Tablet 15 mg PO QDAY Rx Instructions: 1 am amlodipine 10 mg Tablet 5 mg PO DAILY Rx Instructions: 1 pm metoprolol succinate 25 mg Tablet Extended Release 24 Hr 50 mg PO QPM Rx Instructions: 1 pm lisinopril 40 mg Tablet 40 mg PO QDAY Rx Instructions: 1 am cyclobenzaprine 10 mg tablet 10 mg PO QDAY Patient Comments: TAKE 1 TABLET BY MOUTH DAILY AT BEDTIME NEEDED Rx Instructions: @ 1pm metformin 1,000 mg tablet 1,000 mg PO BID Patient Comments: TAKE 1 TABLET BY MOUTH TWICE DAILY WITH A MEAL Rx Instructions: 1 am and 1 pm oxybutynin chloride 5 mg tablet 5 mg PO BID Patient Comments: GENERIC FOR DITROPAN... TAKE 1 TABLET BY MOUTH TWICE DAILY FOR BLADDER Rx Instructions: 1 am & 1 pm vitamin A-vitamin C-vit E-min Tablet 1 tab PO QDAY furosemide [Lasix] 20 mg Tablet 20 mg PO DAILY Rx Instructions: 1 PM potassium chloride 10 mEq Tablet Extended Release 10 meq PO QDAY Rx Instructions: 1 am peg 3350-electrolytes [Golytely] 236-22.74-6.74 -5.86 gram recon soln 240 ml PO Q1H Qty: 4000 0RF Rx Instructions: until fecal effluent is clear ibuprofen 800 mg Tablet 800 mg PO Q8H PRN (Reason: knee pain) moxifloxacin 400 mg tablet 400 mg PO QDAY Qty: 7 0RF Rx Instructions: Please call the patient for new medication prescription. Thank you. Referrals: Je Montes MD [Primary Care Provider] - In 1 week Problem List Clinical Impression: Pyelonephritis of left kidney Patient/Caregiver Discharge Instructions Print Language: Bulgarian Stand Alone Forms: [facility]epti Award Info., Patient Portal Info Letter
--- NOTE | 2024-05-02 15:33 | XR_ITS ---
Examination: CT abdomen and pelvis without contrast. Coronal 3-D reconstructions. Sagittal 2-D reconstructions. Date and time of exam:May 02, 2024 1545 hours INDICATIONS: Onset lower abdominal pain today, history urinary tract infections with obstructive uropathy CTDI: vol (mGy): 10.7 DLP: (mGycm): 507 Technique: Axial images of the abdomen have been obtained, 3 mm slice thickness Intravenous contrast material has not been administered. Low dose protocols were performed. One or more of the following dose reduction techniques were used; automated exposure control, adjustment of the mA and/or KV according to patient size, use of iterative reconstruction technique. Findings: No focal liver or splenic lesions No gallstones No pancreatic mass Left perinephric stranding lower pole left renal cyst cyst 7.5 cm Aorta normal size No bowel obstruction Urinary bladder wall thickening up to 7 mm AP prostate dimension 4.1 cm No renal or ureteral calculi IMPRESSION: Findings most consistent with left pyelonephritis and cystitis
[2024-05-02] MEDS: RINGERS LACTATED 1000 ML 1,000 ML 999 ML IV ×2 (15:48→18:09)
[2024-05-02] MEDS: ACETAMINOPHEN IVPB 1,000 MG/100 ML VIAL 250 MG IV (18:07)
--- NOTE | 2024-05-02 18:13 | ECHO_ITS ---
Transthoracic Echo Report Ht (in): 71 Wt (lb): 208 Exam Location: Echo Lab Status: Emergency Property Management Assistant: CAMPOS Ramsay^^^^ Indications: Procedure Performed: BP: 124 / 76 HR: 81 Rhythm: NSR Technical Quality: Fair MEASUREMENTS (Male / Female) Normal Values 2D ECHO LV Diastolic Diameter PLAX 4.6 cm 4.2 - 5.9 / 3.9 - 5.3 cm LV Systolic Diameter PLAX 2.9 cm IVS Diastolic Thickness 0.8 cm 0.6 - 1.0 / 0.6 - 0.9 cm LVPW Diastolic Thickness 1.0 cm 0.6 - 1.0 / 0.6 - 0.9 cm LV Relative Wall Thickness 0.4 RV Internal Dim ED PLAX 4.3 cm LVOT Diameter 2.0 cm Aortic Root Diameter 4.4 cm LA Systolic Diameter LX 2.6 cm 3.0 - 4.0 / 2.7 - 3.8 cm LV Ejection Fraction MOD BP 61.8 % >= 55 % LV Cardiac Index MOD BP 3034.3 cm?/min?m? LV Ejection Fraction MOD 4C 66.7 % LV Cardiac Index MOD 4C 3473.6 cm?/min?m? LV Ejection Fraction 4C AL 67.3 % LV Cardiac Index 4C AL 3635.3 cm?/min?m? LV Ejection Fraction MOD 2C 56.6 % LV Cardiac Index MOD 2C 2425.2 cm?/min?m? LV Ejection Fraction 2C AL 58.3 % LV Cardiac Index 2C AL 2568.1 cm?/min?m? LA Volume Index 24.5 cm?/m? 16 - 28 cm?/m? Ascending Aorta Diameter 3.9 cm DOPPLER AV Peak Velocity 169.3 cm/s AV Peak Gradient 11.5 mmHg AV Mean Gradient 7.0 mmHg AV Velocity Time Integral 33.2 cm AI Peak Velocity 278.5 cm/s AI Peak Gradient 31.0 mmHg AI Pressure Half Time 799.5 ms LVOT Peak Velocity 117.0 cm/s LVOT Peak Gradient 5.5 mmHg LVOT Velocity Time Integral 31.3 cm LVOT Cardiac Index 3629.8 cm?/min?m? AV Area Cont Eq vti 3.0 cm? AV Area Cont Eq pk 2.2 cm? MV Area PHT 1.9 cm? Mitral E Point Velocity 71.3 cm/s Mitral A Point Velocity 128.0 cm/s Mitral E to A Ratio 0.6 LV E' Lateral Velocity 9.3 cm/s Mitral E to LV E' Lateral Ratio 7.7 LV E' Septal Velocity 8.4 cm/s Mitral E to LV E' Septal Ratio 8.5 TR Peak Velocity 268.0 cm/s TR Peak Gradient 28.7 mmHg PV Peak Velocity 121.0 cm/s PV Peak Gradient 5.9 mmHg RVOT Peak Velocity 58.4 cm/s FINDINGS Left Ventricle The left ventricular cavity size and systolic function are normal with no regional wall motion abnormalities present. The left ventricular ejection fraction is normal, estimated at 55-60%. There is grade I diastolic dysfunction of the left ventricle (impaired relaxation pattern). Right Ventricle The right ventricle is normal in size and systolic function. The estimated right ventricular systolic pressure, 34 mmHg. Left Atrium The left atrium is normal by two-dimensional, color flow and Doppler imaging with no structural abnormalities, no thrombus formation present. Right Atrium The right atrium is normal by two-dimensional imaging, color flow and Doppler imaging with no structural abnormalities, no thrombus formation present. Atrial Septum The interatrial septum appears normal with no evidence of a shunt. Aorta Mild aortic dilatation at the level of the sinuses of Valsalva.mildly dilated proximal ascending aorta. Mitral Valve Structurally normal mitral valve. [id number] mitral regurgitation. Mitral annular calcification. Aortic Valve Mild aortic valve regurgitation. Aortic valve sclerosis. Tricuspid Valve There is mild tricuspid valve regurgitation. Pulmonic Valve Mild pulmonic valve regurgitation. Vessels The pulmonary artery appears normal. The inferior vena cava pulmonary and hepatic veins appear normal. Pericardium The pericardium is normal by two-dimensional imaging. There is no significant pericardial effusion. CONCLUSIONS indication: Acute onset SOB Normal LV size and function. EF was 60-65%. Diastolic dysfuntcion stage 1. Normal RV size and function. Estimated RVSP of 34 mmHg. Mild TR. Midly dilated sinus of valsalva and proximal Ascending Aorta Mild MAC with mild MR. Trace to mild AI. Jeffrey Acosta (Electronically Signed) Final Date: 03 May 2024 22:09
[2024-05-02 18:15] LABS: Path Review Blood Smear Sent to Pathologist
--- NOTE | 2024-05-02 18:54 | ESHP_ITS ---
<Statement entered by Rachell Morgan MD - 05/02/24 19:31> I discussed with and supervised my co-resident involved in the care of this patient. I agree with the assessment and plan as documented above. Patient is a 73 year old male with PMH of HTN, DM2, HLD, FAVIOLA, chronic urinary retention and BPH who presents to the ER for shortness of breath x 2-3 days, worst with exertion. Associated with subjective fever, cough, dysuria, and urinary hesitance and frequency. Denies CVA tenderness, abdominal pain. Has chronic lower extremity swelling. Vitals significant for tachycardia and fever. CT imaging and UA suggestive of UTI. Patient to be admitted for sepsis secondary to acute pyelonephritis. Will give IV antibiotics (Zosyn) and follow up with urine and blood cultures. Regarding his edema, will get echo. Rachell Morgan MD PGY-3 Documentation for date of: 05/02/24 HPI History of Present Illness Chief complaint: SOB, burning when pee History of present illness: Gaviota Padilla is 73 yr male with PMH of hypertension, type 2 diabetes, hyperlipidemia, asthma, FAVIOLA, chronic urinary retention secondary to BPH, and osteoarthritis who presented to the ED due to shortness of breath and urinary discomfort for the past 3 days. Patient stated that he has been having difficulty with breathing when walking around the house and at rest. He denies any orthopnea, PND, or lower extremity edema. Patient stated that he is typically able to do activities without difficulty. But it has been worse since past few days. Also has productive cough, subjective fever that improved with ibuprofen. In regards to urinary discomfort, patient is experiencing dysuria, poor stream, increased frequency with use of bathroom every 2-3 hours. Patient is aware of underlying BPH but has not been started on any medications for management. He denies any nausea, vomiting, abdominal pain, suprapubic pain, or hematuria. In ED, vitals were significant for fever highest 103.2, O2 saturation 93%. Labs showed normal WBC however elevated from patient's baseline at 7.4, normal lactic acid, BUN 27, creatinine 1.1. UA positive for UTI with leukocyte esterase and [address] abdomen pelvis significant for left pyelonephritis and cystitis. Was given 1 L bolus LR, acetaminophen for fever, ceftriaxone x 1. Patient admitted for sepsis secondary to pyelonephritis and SOB. PMH: as noted above PSH: none FamHx: Positive for MT in father, cancer in mother Social: Denies smoking or illicit drug. Endorses alcohol use rarely. Lives at home with . Meds: Amlodipine 5 mg qday, lisinopril 40 mg qday, metoprolol succinate 50 mg qday, rosuvastatin 10 mg qday, cyclobenzaprine 10 mg qday, meloxicam 15 mg qday, tamsulosin, ibuprofen prn Allergies: Clams, oysters, peanuts - anaphylaxis Review of Systems Review of Systems Systems Reviewed: All systems reviewed, normal except as documented Exam Vital Signs Temp Pulse Resp BP Pulse Ox O2 Del Method 99.1 F 85 16 117/64 94 L Room Air 05/02/24 18:45 05/02/24 18:45 05/02/24 18:45 05/02/24 18:45 05/02/24 18:45 05/02/24 18:45 Narrative Exam General: Elderly male, mild distress, difficulty completing sentences due to shortness of breath, cooperative HEENT: NCAT, No JVD noted. Mucosa moist. Pupils are equal and reactive to light bilaterally Cardiovascular: Normal S1 and S2. Regular rate and rhythm. Respiratory: Lungs are clear to auscultation bilaterally. No wheezing or crackles heard. Abdomen: Soft, nontender, not distended, normal bowel sounds. Skin: Warm to touch, dry, no rashes noted Musculoskeletal: No gross injuries. Able to move all 4 extremities. +2 pitting edema, no CVA tenderness Neuro: Alert and oriented x3. No focal neuro deficits. Psych: Normal affect and mood Results: Labs 05/03/24 04:57 05/03/24 04:57 Labs: Short CBC 05/02/24 Range/Units 12:32 WBC 7.4 (3.8-10.6) Thou/mm3 Hgb 12.5 L (13.5-16.0) g/dL Hct 37.6 L (41.0-53.0) % Plt Count 100 L (140-440) Thou/mm3 BMP 05/02/24 12:32 Sodium 136 Potassium 3.9 Chloride 104 Carbon Dioxide 22.3 BUN 27 H Creatinine 1.1 Glucose 182 H Calcium 9.5 Liver Function 05/02/24 Range/Units 12:32 Total Bilirubin 1.5 H (0.3-1.2) mg/dL AST 24 (0-34) U/L ALT 29 (10-49) U/L Alkaline Phosphatase 101 (46-116) U/L Albumin 4.5 (3.4-4.8) gm/dL Urine 05/02/24 Range/Units 12:42 Urine Color Yellow (Lt Yel-Yel) Urine Clarity Turbid A (Clear/Hazy) Urine pH 6.0 (5.0-7.0) Ur Specific [place] 1.015 (1.001-1.035) Urine Protein 1+ A (Neg - Trace) Urine Glucose (UA) Negative (Negative) Quality Measures Quality Measures none Advance care planning discussed with:: patient Medications Home Medications and Allergies Home Medications ?Medication ?Instructions ?Recorded ?Confirmed ?Type rosuvastatin 10 mg tablet (Crestor) 10 mg PO QPM #0 ta bs 08/27/16 05/03/24 History meloxicam 15 mg tablet 15 mg PO QDAY arthritis 07/0805/03/24 History amlodipine 10 mg tablet 5 mg PO DAILY 09/12/2105/03 History lisinopril 40 mg tablet 40 mg PO QDAY 09/12/2105/03 History metoprolol succinate 25 mg 50 mg PO QPM 09/12/2105/03 History tablet,extended release 24 hr furosemide 20 mg tablet (Lasix) 20 mg PO DAILY 2 05/03/24 History potassium chloride 10 mEq 10 meq PO QDAY 03/04/2204/23 History tablet,extended release cyclobenzaprine 10 mg tablet 10 mg PO QDAY 12/31/23 History metformin 1,000 mg tablet 1,000 mg PO BID 12/31/2302/14 History Held on 05/03/24. Instructions: Doctor's Order oxybutynin chloride 5 mg tablet 5 mg PO BID 12/31/23 0 05/03/24 History ibuprofen 800 mg tablet 800 mg PO Q8H PRN knee pain 03/30/24 05/03/24 History albuterol sulfate 90 mcg/actuation 2 inh inhalation Q4 H PRN shortness 05/03/24 05/03/24 History breath activated powder inhaler of breath or wheezing (ProAir RespiClick) epinephrine 0.3 mg/0.3 mL 0.3 ml subcut .once PRN anap hylaxis 05/03/24 05/03/24 History injection, auto-injector (EpiPen) nitroglycerin 0.4 mg sublingual 0.4 mg buccal .once NC N chest pain 05/03/24 05/03/24 History tablet Allergies Allergy/AdvReac Type Severity Reaction Status Date / Time clams Allergy Severe ANAPHYLAXIS Verified 05/02/24 11:28 oyster extract Allergy Severe Anaphylaxis Verified 05/02/24 11:28 peanut Allergy Severe ANAPHYLAXIS Verified 05/02/24 11:28 Visit Medications Acetaminophen (Acetaminophen 325 Mg Tablet) 650 mg PO Q6H PRN PRN Reason: Fever >100.3 or pain Stop: 06/01/24 18:07 Enoxaparin Sodium (Enoxaparin Sod Inj 40 Mg/0.4 Ml Syringe) 40 mg SC QDAY MARSHAL Stop: 05/16/24 18:14 Sodium Chloride (Ns) 1,000 mls @ 135 mls/hr IV .Q7H25M MARSHAL Stop: 05/03/24 01:39 Piperacillin/Tazobactam/Dextrose (Zosyn) 50 mls @ 12.5 mls/hr IV Q8HR MARSHAL Stop: 05/09/24 21:59 Piperacillin/Tazobactam/Dextrose (Zosyn) 50 mls @ 100 mls/hr IV X1 ONE Stop: 05/02/24 18:59 Ondansetron HCl (Ondansetron Inj 2 Mg/Ml Inj 2 Ml) 4 mg IV Q6H PRN; Protocol PRN Reason: NAUSEA OR VOMITING Stop: 06/01/24 18:07 Sennosides (Senna Tablet) 1 tab PO QDAY PRN; Protocol PRN Reason: constipation Stop: 06/01/24 18:07 Discontinued Medications Acetaminophen (Acetaminophen 500 Mg Tablet) 1,000 mg PO X1 ONE Stop: 05/02/24 12:11 Last Admin: 05/02/24 12:19 Dose: 1,000 mg Lactated Ringer's (Lactated Ringers) 1,000 mls @ 999 mls/hr IV .Q1H1M ONE Stop: 05/02/24 16:14 Last Infusion: 05/02/24 18:11 Dose: Infused Ceftriaxone Sodium 1,000 mg/ (Sodium Chloride) 50 mls @ 100 mls/hr IV X1 ONE Stop: 05/02/24 15:44 Last Infusion: 05/02/24 16:19 Dose: Infused Lactated Ringer's (Lactated Ringers) 1,000 mls @ 999 mls/hr IV .Q1H1M ONE Stop: 05/02/24 16:16 Last Admin: 05/02/24 18:09 Dose: 999 mls/hr Acetaminophen (Ofirmev Inj) 1,000 mg in 100 mls @ 250 mls/hr IV X1 ONE Stop: 05/02/24 17:03 Last Infusion: 05/02/24 18:33 Dose: Infused Assessment & Plan Plan Gaviota Padilla is 73 yr male with PMH of hypertension, type 2 diabetes, hyperlipidemia, asthma, FAVIOLA, chronic urinary retention secondary to BPH, and osteoarthritis who presented to the ED due to shortness of breath and urinary discomfort for the past 3 days. Patient admitted for sepsis secondary to pyelonephritis and SOB. #Sepsis 2/2 acute left pyelonephritis #UTI Patient is experiencing dysuria, poor stream, increased frequency with use of bathroom every 2-3 hours. Patient is aware of underlying BPH but has not been started on any medications for management. He denies any nausea, vomiting, abdominal pain, suprapubic pain, or hematuria. No CVA tenderness. Met SIRS 2/4 plus source. Lactic acid was normal at 1.3 UA positive for UTI with leukocyte esterase and [address] abdomen pelvis significant for left pyelonephritis and cystitis. -Zosyn 3.375 g q6hr (05/02-) -Maintenance fluid 135 cc/h -Insert Mosher -Continue acetaminophen for fever -Follow-up blood culture -Follow-up urine culture #Shortness of breath Ddx: Flu, COVID, bacteremia, CHF Patient stated that he has been having difficulty with breathing when walking around the house and at rest. He denies any orthopnea, PND, or lower extremity edema. Patient stated that he is typically able to do activities without difficulty. But it has been worse since past few days. Physical exam negative for signs of heart failure except for lower extremity +2 edema. Has been worked up by revolving field assembler Dr. Reyes but is unsure of any diagnoses. -Follow-up on echo -Flu, COVID test #Hx FAVIOLA -CPAP HS #Hx osteoarthritis Home medications include cyclobenzaprine 10 mg daily, ibuprofen 800 mg 3 times daily as needed, meloxicam 15 mg daily #Hx hypertension Home medications include amlodipine 5 mg daily, lisinopril 40 mg daily, Toprol all 50 mg daily -Hold in setting of sepsis #Hx hyperlipidemia -Rosuvastatin 10 mg daily at home -start 20 mg atorvastatin pending med rec Health maintenance: Dispo: med tele, sepsis 2/2 pyelo DVT prophylaxis: Lovenox 40 mg daily CODE STATUS: Full code Diet: CHO consistent Med rec pending The patient's management plan was discussed with my attending physician Dr. Light and senior Dr. Morgan. Claudia Mata, PGY-1 Attending Provider Attestation/Addendum INallely, , attest that I was physically present for the stroud portions of the service and evaluated the patient with the resident and I reviewed and discussed the case with the resident and agree with the resident's findings and plans of care as documented above Patient is a 73-year-old male with past medical history of hypertension, type 2 diabetes, hyperlipidemia, asthma, obstructive sleep apnea and BPH who presented to ED due to generalized weakness and fatigue that has progressively been worse for the past 2 days. Patient states that he noted that he had some shaking chills yesterday while resting. He also endorses subjective fevers and chills. He states that he is noted to have some shortness of breath as well. Patient had recently been admitted in the past few months at least twice for acute urinary retention. Patient states he has an appointment with his PCP tomorrow with intentions to obtain a referral to Urology. Patient denies any positional changes with his shortness of breath. CXR shows bibasilar bronchitis. CT abdomen and pelvis shows perinephric stranding on the left and thickening of bladder concerning for pyelonephritis and cystitis. Patient endorses dysuria, increased urinary frequency, straining with urination and decreased urinary stream. Will place mosher catheter as patient likely had urinary retention/ obstruction 2/2 BPH. Will start on IV zosyn and fluids as patient is septic 2/2 pylonephritis. He denies any left flank pain and does not have any cva tenderness on exam. Will obtain echocardiogram due to dyspnea. Patient does also have b/l LE swelling. Will admit to med/tele for further workup and medical management of sepsis 2/2 acute pyelonephritis. Will consult urology in AM due to recurrent symptoms and readmissions for urinary symptoms. F/u with blood and urine cultures.
--- NOTE | 2024-05-02 20:01 | PC.NURSE ---
REPORT GIVEN TO SHRUTHI LARRY. ALL QUESTIONS ASKED AND ANSWERED. PATIENT REMAINS ON ROOM AIR. PATIENT TRANSFERRED TO ROOM WITH STAFF. NO DISTRESS NOTED AT TRANSFER.
[2024-05-02] MEDS: ENOXAPARIN SOD INJ 40 MG/0.4 ML SYRINGE SC (20:04)
[2024-05-02] MEDS: SODIUM CHLORIDE 0.9% 1000 ML 1,000 ML 135 ML IV (20:05)
[2024-05-02] MEDS: PIPER/TAZO 3.375 GM 50 ML IV (22:55)
[2024-05-03] VITALS (10 sets, daily range): BP systolic 107–133; BP diastolic 57–70; PULSE 70–90; RESP 16–95; TEMP 36.3–37.6; O2SAT 93–99
[2024-05-03 05:29] LABS: Basophils % (Auto) 0 % (0-2.5); Eosinophils # (Auto) 0.1 Thou/mm3 (0.0-0.5); Eosinophils % (Auto) 2 % (0-10); Hematocrit 31.2 % (41.0-53.0); Hemoglobin 10.3 g/dL (13.5-16.0); Immature Granulocytes % (Auto) 4 % (0-0); Immature Granulocytes Auto 0.26 Thou/mm3 (0.00-0.00); Lymphocytes # (Auto) 0.9 Thou/mm3 (1.0-4.8); Lymphocytes % (Auto) 16 % (10-50); Mean Corpuscular Volume 82 fL (80-100); Monocytes # (Auto) 0.8 Thou/mm3 (0.0-0.8); Monocytes % (Auto) 13 % (0-12); Neutrophils # (Auto) 3.8 Thou/mm3 (1.8-7.7); Neutrophils % (Auto) 65 % (37-80); Nucleated Red Blood Cell % 0 /100 WBC (0); RDW Standard Deviation 44.7 fL (35.1-43.9); Red Blood Count 3.82 Miln/mm3 (4.50-5.90); White Blood Count 5.9 Thou/mm3 (3.8-10.6)
[2024-05-03 05:30] LABS: Platelet Count 69 Thou/mm3 (140-440)
[2024-05-03] MEDS: PIPER/TAZO 3.375 GM 50 ML IV ×3 (05:51→21:04)
[2024-05-03] MEDS: SENNA TABLET 1 TAB PO (05:56)
[2024-05-03 06:12] LABS: Slide Review Platelets confirmed
[2024-05-03 06:34] LABS: Alanine Aminotransferase 20 U/L (10-49); Albumin, Serum 3.6 gm/dL (3.4-4.8); Albumin/Globulin Ratio 1.7 (1.2-2.2); Alkaline Phosphatase 83 U/L (46-116); Anion Gap 8 (7-16); Aspartate Amino Transferase 16 U/L (0-34); BUN/Creatinine Ratio 25 Ratio (12-20); Bilirubin,Total 1.2 mg/dL (0.3-1.2); Blood Urea Nitrogen 27 mg/dL (9-23); Calcium 9.1 mg/dL (8.3-10.6); Calcium (Corrected) 9.4 mg/dL (8.5-10.1); Carbon Dioxide 24.7 mMol/L (20.0-31.0); Chloride 106 mMol/L (98-107); Creatinine (Component) 1.1 mg/dL (0.6-1.3); Estimated Creatinine Clearance 73.5 mL/min (>60); Globulin 2.1 gm/dL (2.3-3.5); Glucose 122 mg/dL (74-106); Magnesium 1.5 mg/dL (1.6-2.6); Osmolality,Calculated 283 (275-295); Phosphorous 3.8 mg/dL (2.4-5.1); Sodium 139 mMol/L (136-145); Total Protein 5.7 gm/dL (5.7-8.2); eGFR > 60 See Note
[2024-05-03] MEDS: ENOXAPARIN SOD INJ 40 MG/0.4 ML SYRINGE SC (09:24)
[2024-05-03] MEDS: Magnesium Sulfate 2 GM Ivpb 2 GM/50 ML BAG IV (09:25)
--- NOTE | 2024-05-03 12:16 | PC.SS ---
Initial assessment: This is 73 year old male admitted for SOB,Phelonephritis. Patient appeared alert and oriented. SS contacted patient's , Teri. She confirmed home address to be [address] [place] [id number]. Patient's , Teri reports she is the patient's alternate medical surrogate decision maker. Patient is able to complete ADL's independently. Patient does not utilize any source of DME. Patient has a CPAP machine at home used during sleep time. Patient's PCP is Dr. Yasmin Montes. Patient is also followed by Dr. Ramírez and Dr. Reyes. Pharmacy of choice is [email or web address] in [place]. The patient would like to return home once medically cleared. Patient's family to assist with transportation home. No needs identified at this time. food services manager to remain available to address further concerns. D/c plan: home Next of kin: , Teri Padilla,
--- NOTE | 2024-05-03 12:47 | ESPR_ITS ---
<Statement entered by Rachell Morgan MD - 05/03/24 15:25> I discussed with and supervised my co-resident involved in the care of this patient. I agree with the assessment and plan as documented above. Patient seen at bedside. Had fever last night around 6pm. This morning, patient no longer short of breath. He is speaking in full sentences. Urine culture grew GNR. Will continue IV antibiotics and follow up on cultures. Pending echo. Rachell Morgan MD PGY-3 Documentation for date of: 05/03/24 Subjective Subjective Interval history: Patient seen at bedside. Resting comfortably with improved SOB. Able to finish sentences today without getting SOB. He had BM this morning and was able to sleep through the night without needing to urinate every 2 hrs. Net balance in past 24 hrs with mosher has been 2.5L. Will consult urology and start patient on finasteride and tamsulosin for BPH. Urine cultures positive for GNR. Continue Zosyn 3.375g TID for acute pyelonephritis. WBCs 5.9, platelets 69, mag 1.5--repleated with 2 gm. Cotinue CPAP HS and follow up up with echo to assess cardiac dysfunction as cause of SOB. Exam Vital Signs Temp Pulse Resp BP Pulse Ox O2 Del Method O2 Flow Rate 99.0 F 80 16 107/67 94 L Room Air 2 05/03/24 11:59 05/03/24 11:59 05/03/24 11:59 05/03/24 11:59 05/03/24 11:59 05/03/24 11:59 05/03/24 11:59 FiO2 30 05/03/24 03:27 Narrative Exam General: Elderly male, laying comfortably in bed today, cooperative HEENT: NCAT, No JVD noted. Mucosa moist. Pupils are equal and reactive to light bilaterally Cardiovascular: Normal S1 and S2. Regular rate and rhythm. Respiratory: Lungs are clear to auscultation bilaterally. No wheezing or crackles heard. Abdomen: Soft, nontender, not distended, normal bowel sounds. : mosher in place. Skin: Warm to touch, dry, no rashes noted Musculoskeletal: No gross injuries. Able to move all 4 extremities. No LE edema, no CVA tederness. Neuro: Alert and oriented x3. No focal neuro deficits. Psych: Normal affect and mood Objective Labs 05/03/24 04:57 05/03/24 04:57 Labs: Laboratory Results - last 24 hr 05/02/24 05/02/24 05/03/24 12:32 12:42 04:57 WBC 7.4 5.9 RBC 4.63 3.82 L Hgb 12.5 L 10.3 L D Hct 37.6 L 31.2 L MCV 81 82 MCH 27.0 27.0 MCHC 33.2 33.0 RDW Std Deviation 43.7 44.7 H Plt Count 100 L 69 L D Neut % (Auto) 71 65 Lymph % (Auto) 9 L 16 Yell % (Auto) 11 13 H Eos % (Auto) 1 2 Baso % (Auto) 0 0 Neut # (Auto) 5.3 3.8 Lymph # (Auto) 0.6 L 0.9 L Yell # (Auto) 0.8 0.8 Eos # (Auto) 0.1 0.1 Baso # (Auto) 0.0 0.0 Immature Gran # (Auto) 0.65 H 0.26 H Absolute Nucleated RBC 0.00 0.00 Immature Gran % 9 H 4 H Nucleated RBC % 0 0 Smear Path Review Sent to Pathologist Sodium 136 139 Potassium 3.9 4.0 Chloride 104 106 Carbon Dioxide 22.3 24.7 Anion Gap 10 8 BUN 27 H 27 H Creatinine 1.1 1.1 Estim Creat Clear Calc 72.2 73.5 eGFR > 60 > 60 BUN/Creatinine Ratio 25 H 25 H Glucose 182 H 122 H D Calculated Osmolality 282 283 Lactic Acid 1.3 Calcium 9.5 9.1 Corrected Calcium 9.5 9.4 Phosphorus 3.8 Magnesium 1.5 L Total Bilirubin 1.5 H 1.2 AST 24 16 ALT 29 20 Alkaline Phosphatase 101 83 Total Protein 7.0 5.7 Albumin 4.5 3.6 D Globulin 2.5 2.1 L Albumin/Globulin Ratio 1.8 1.7 Procalcitonin 0.23 Ur Collection Type Clean Catch Urine Color Yellow Urine Clarity Turbid A Urine pH 6.0 Ur Specific [place] 1.015 Urine Protein 1+ A Urine Glucose (UA) Negative Urine Ketones Negative Urine Blood 1+ A Urine Nitrite Positive Urine Bilirubin Negative Urine Urobilinogen (Auto) Negative Ur Leukocyte Esterase Positive Urine RBC 17 H Urine WBC 885 H Ur Squamous Epith Cells < 1 Ur Renal Epithelial Cell 1 Urine Bacteria None Misc Test Result Platelets confirmed Quality Measures Quality Measures none Advance care planning discussed with:: patient Assessment & Plan Assessment Current Active Medications: Generic Name Dose Route Start Last Admin Trade Name Freq PRN Reason Stop Dose Admin Acetaminophen 650 mg 05/02/24 18:08 Acetaminophen 325 Mg Tablet PO 06/01/24 18:07 Q6H PRN Fever >100.3 or pain Enoxaparin Sodium 40 mg 05/02/24 18:15 05/03/24 09:24 Enoxaparin Sod Inj 40 Mg/0.4 Ml Syringe SC 05/16/24 18:14 40 mg QDAY MARSHAL Administration Piperacillin/Tazobactam/Dextrose 50 mls @ 12.5 mls/hr 05/02/24 22:00 05/03/24 05:51 Zosyn IV 05/09/24 21:59 12.5 mls/hr Q8HR MARSHAL Administration Ondansetron HCl 4 mg 05/02/24 18:08 Ondansetron Inj 2 Mg/Ml Inj 2 Ml IV 06/01/24 18:07 Q6H PRN NAUSEA OR VOMITING Protocol Sennosides 1 tab 05/02/24 18:08 05/03/24 05:56 Senna Tablet PO 06/01/24 18:07 1 tab QDAY PRN Administration constipation Protocol Plan Gaviota Padilla is 73 yr male with PMH of hypertension, type 2 diabetes, hyperlipidemia, asthma, FAVIOLA, chronic urinary retention secondary to BPH, and osteoarthritis who presented to the ED due to shortness of breath and urinary discomfort for the past 3 days. Patient admitted for sepsis secondary to pyelonephritis and SOB. #Sepsis 2/2 acute left pyelonephritis #UTI #BPH Patient is experiencing dysuria, poor stream, increased frequency with use of bathroom every 2-3 hours. Patient is aware of underlying BPH but has not been started on any medications for management. He denies any nausea, vomiting, abdominal pain, suprapubic pain, or hematuria. No CVA tenderness. Met SIRS 2/4 plus source. Lactic acid was normal at 1.3 UA positive for UTI with leukocyte esterase and [address] abdomen pelvis significant for left pyelonephritis and cystitis. -Zosyn 3.375 g q6hr (05/02-) -continue Mosher -Continue acetaminophen for fever -Follow-up blood culture -Urine culture positive for GNR. -consult urology, appreciate recs -start finasteride and tamsulosin for BPH #Shortness of breath Ddx: Flu, COVID, bacteremia, CHF Patient stated that he has been having difficulty with breathing when walking around the house and at rest. He denies any orthopnea, PND, or lower extremity edema. Patient stated that he is typically able to do activities without difficulty. But it has been worse since past few days. Physical exam negative for signs of heart failure except for lower extremity +2 edema. Has been worked up by logistics lead Dr. Reyes but is unsure of any diagnoses. -Follow-up on echo -Flu, COVID test #Hx FAVIOLA -CPAP HS #Hx osteoarthritis Home medications include cyclobenzaprine 10 mg daily, ibuprofen 800 mg 3 times daily as needed, meloxicam 15 mg daily #Hx hypertension Home medications include amlodipine 5 mg daily, lisinopril 40 mg daily, Toprol all 50 mg daily -Hold in setting of sepsis #Hx hyperlipidemia -start 20 mg atorvastatin Health maintenance: Dispo: med tele, sepsis 2/2 pyelo DVT prophylaxis: Lovenox 40 mg daily CODE STATUS: Full code Diet: CHO consistent Med rec pending The patient's management plan was discussed with my attending physician Dr. Light and senior Dr. Morgan. Claudia Mata, PGY-1 Attending Provider Attestation/Addendum Nallely Means, , attest that I was physically present for the stroud portions of the service and evaluated the patient with the resident and I reviewed and discussed the case with the resident and agree with the resident's findings and plans of care as documented above Patient seen and evaluated this AM. He states that he is feeling much improved. Echocardiogram done this morning. He continues to have b/l LE edema. Will start on flomax and finasteride. Urology consulted and case discussed. Suspect that patient may have overflow incontinence due to decompensated bladder. Recommends decompression and bladder rest for at least 7 days with mosher catheter. Patient is to undergo voiding trial outpatient. If successful, patient may need to self cathterize intermittently to ensure complete voiding. Will need HHC on discharge. Recommended increase of flomax to 0.8mg PO daily. Patient will need to f/u outpatient for BPH. and patient state that they have an appointment for June 15 now scheduled. Urine cultures growing GNR. Will continue with abx and f/u with final cultures and sensitivities. Anticipate DC wihtin next 24h. Pt and updated regarding plan of care. All questions and concerns addressed at bedside.
[2024-05-03] MEDS: ALBUTEROL RT 2.5 MG/0.5 ML NEBU 5 MG INH (14:10)
[2024-05-03] MEDS: FINASTERIDE 5 MG TABLET PO (14:49)
[2024-05-03] MEDS: TAMSULOSIN HCL 0.4 MG CAPSULE PO ×2 (14:50→15:37)
--- NOTE | 2024-05-03 18:09 | PC.NURSE ---
Dr Dhaliwal in to see patient. Will need mosher for at least 7 days
[2024-05-03] MEDS: ATORVASTATIN CALCIUM 20 MG TABLET 40 MG PO (21:04)
[2024-05-04] VITALS (7 sets, daily range): BP systolic 106–132; BP diastolic 64–77; PULSE 72–88; RESP 17–94; TEMP 36.1–37.1; O2SAT 93–95
[2024-05-04] MEDS: PIPER/TAZO 3.375 GM 50 ML IV ×2 (05:47→13:30)
[2024-05-04 06:12] LABS: Basophils % (Auto) 0 % (0-2.5); Eosinophils # (Auto) 0.1 Thou/mm3 (0.0-0.5); Eosinophils % (Auto) 3 % (0-10); Hematocrit 29.5 % (41.0-53.0); Hemoglobin 9.9 g/dL (13.5-16.0); Immature Granulocytes % (Auto) 7 % (0-0); Immature Granulocytes Auto 0.17 Thou/mm3 (0.00-0.00); Lymphocytes # (Auto) 0.7 Thou/mm3 (1.0-4.8); Lymphocytes % (Auto) 29 % (10-50); Mean Corpuscular HGB Conc 33.6 g/dl (31.0-37.0); Mean Corpuscular Hemoglobin 27.5 pg (25.0-35.0); Mean Corpuscular Volume 82 fL (80-100); Monocytes # (Auto) 0.5 Thou/mm3 (0.0-0.8); Monocytes % (Auto) 21 % (0-12); Neutrophils % (Auto) 40 % (37-80); Nucleated Red Blood Cell % 0 /100 WBC (0); RDW Standard Deviation 43.3 fL (35.1-43.9)
[2024-05-04 06:17] LABS: Platelet Count 72 Thou/mm3 (140-440); White Blood Count 2.5 Thou/mm3 (3.8-10.6)
[2024-05-04 06:39] LABS: Alanine Aminotransferase 24 U/L (10-49); Albumin, Serum 3.6 gm/dL (3.4-4.8); Albumin/Globulin Ratio 1.7 (1.2-2.2); Alkaline Phosphatase 75 U/L (46-116); Anion Gap 3 (7-16); Aspartate Amino Transferase 25 U/L (0-34); BUN/Creatinine Ratio 18 Ratio (12-20); Bilirubin,Total 0.7 mg/dL (0.3-1.2); Blood Urea Nitrogen 18 mg/dL (9-23); Calcium (Corrected) 9.3 mg/dL (8.5-10.1); Chloride 109 mMol/L (98-107); Estimated Creatinine Clearance 80.9 mL/min (>60); Globulin 2.1 gm/dL (2.3-3.5); Glucose 131 mg/dL (74-106); Magnesium 1.8 mg/dL (1.6-2.6); Osmolality,Calculated 277 (275-295); Potassium 3.4 mMol/L (3.4-5.1); Sodium 137 mMol/L (136-145); Total Protein 5.7 gm/dL (5.7-8.2); eGFR > 60 See Note
[2024-05-04] MEDS: TAMSULOSIN HCL 0.4 MG CAPSULE 0.8 MG PO (10:09)
[2024-05-04] MEDS: ENOXAPARIN SOD INJ 40 MG/0.4 ML SYRINGE SC (10:09)
[2024-05-04] MEDS: FINASTERIDE 5 MG TABLET PO (10:09)
[2024-05-04] MEDS: POTASSIUM CHLORIDE 20 mEq TABCR 40 MEQ PO (10:34)
--- NOTE | 2024-05-04 10:45 | PC.NURSE ---
OOB ambulating in hallway, tolerated well.
[2024-05-04 12:25] LABS: Slide Review Platelets confirmed
--- NOTE | 2024-05-04 15:25 | PC.SS ---
Rounding note: pending cultures and receiving IV abx. Patient may d/c with mosher in place.
--- NOTE | 2024-05-04 15:32 | UCCONSULT_ITS ---
RE: ROMAN GALVEZ : 1950 DATE OF CONSULTATION: 05/03/2024 CHIEF COMPLAINT: 1. BPH with urinary obstruction and LUTS. 2. Urinary retention. 3. Overflow incontinence. ESTABLISHED DIAGNOSES: 1. Hypertension. 2. Diabetes mellitus. 3. Hyperlipidemia. 4. Chronic lower extremity swelling. HISTORY OF PRESENT ILLNESS: This is a 73-year-old gentleman. This patient has history of obstructive urinary symptoms, getting worse for the last couple of months. Two weeks ago, he came to the emergency room, had a urinary retention, had a placement of catheter and he had UTI, was treated with antibiotics and had sepsis. The patient improved. He was sent home. He is on tamsulosin 0.4 mg p.o. daily. He was without a catheter. He came back to the emergency room in urinary retention. The patient had slow urinary stream and he had to go every half an hour. Past medical history, family history, and review of the system, personal history: Please refer to the patient history form dated 05/03/2024. It is in HPI in EMR. PHYSICAL EXAMINATION: General: The patient is accompanied by his . Condition is satisfactory, orientation x3. HEENT: Normocephalic and atraumatic. Eyes no anemia or jaundice. Neck: Supple. Chest: Symmetrical. Heart: Regular rate and rhythm. Vital Signs: Vital signs are stable. They are in HPI and EMR. Temperature is 99.1, pulse 85 per minute, respirations 16, BP is 117/64. Pulse oximetry is 94. Rectal: Deferred. VARIOUS LABS: Urine is negative for an infection. BUN is 27. Creatinine is 1.1. IMPRESSION: 1. BPH with urinary obstruction and LUTS. 2. Urinary retention. RECOMMENDATIONS: 1. Increase the dose of tamsulosin to 0.8 mg p.o. daily. 2. Start on finasteride 5 mg p.o. daily. 3. He has decompensated bladder, leave indwelling Randolph catheter at least for 1 week. Give him a trial of voiding. After that, if the patient is unable to void, he needs to be on intermittent catheterization. This patient will also have a follow-up appointment with me in urology office in 1 month or 6 weeks' time. He is going to have a complete urological workup in the form of Uroflow bladder scan, prostate ultrasound, PSA and cystoscopy examination. All above issues were discussed with the patient and his in detail. Questions answered to their satisfaction. Both verbalized understanding. DT: 14:31:50 TT: 19:28:00 Ref: [id number] - TID: [id number] MTDD
--- NOTE | 2024-05-04 17:43 | ESPR_ITS ---
<Statement entered by Rachell Morgan MD - 05/04/24 18:25> I discussed with and supervised my co-resident involved in the care of this patient. I agree with the assessment and plan as documented above. Patient seen at bedside. He is feeling well. Not short of breath. Afebrile. Pancytopenic on labs. [facility]. Urine culture grew E. Coli. Will continue IV antibiotics and follow up blood culture. Rachell Morgan MD PGY-3 Documentation for date of: 05/04/24 Subjective Subjective Interval history: Patient seen at bedside. Resting comfortably with improved SOB. Had 2 BM yesterday. continue to have restful sleep with mosher. Net balance in past 24 hrs with mosher has been 650cc. Will continue finasteride and increase tamsulosin dose to 0.8 mg daily for BPH. Urine cultures positive for E. coli. Start ceftriaxone for acute pyelonephritis. Follow-up for iron panel due to pancytopenia picture on labs. WBCs 2.5, platelets 72, Hb 9.9 Echo showed Diastolic dysfuntcion stage 1 with EF 60-65%. No crackles, JVD, or b/L LE edema on physical exam. Cotinue CPAP HS. Exam Vital Signs Temp Pulse Resp BP Pulse Ox O2 Del Method O2 Flow Rate 97.2 F 72 17 106/67 95 Room Air 2 05/04/24 12:00 05/04/24 12:00 05/04/24 12:00 05/04/24 12:00 05/04/24 12:00 05/04/24 12:00 05/03/24 11:59 FiO2 30 05/03/24 03:27 Narrative Exam General: Elderly male, laying comfortably in bed today, cooperative HEENT: NCAT, No JVD noted. Mucosa moist. Pupils are equal and reactive to light bilaterally Cardiovascular: Normal S1 and S2. Regular rate and rhythm. Respiratory: Lungs are clear to auscultation bilaterally. No wheezing or crackles heard. Abdomen: Soft, nontender, not distended, normal bowel sounds. : mosher in place. Skin: Warm to touch, dry, no rashes noted Musculoskeletal: No gross injuries. Able to move all 4 extremities. +2 edema only LLE , no CVA tederness. Neuro: Alert and oriented x3. No focal neuro deficits. Psych: Normal affect and mood Objective Labs 05/05/24 04:20 05/05/24 04:20 Labs: Laboratory Results - last 24 hr 05/04/24 05:40 WBC 2.5 L D RBC 3.60 L Hgb 9.9 L Hct 29.5 L MCV 82 MCH 27.5 MCHC 33.6 RDW Std Deviation 43.3 Plt Count 72 L Neut % (Auto) 40 Lymph % (Auto) 29 [place] % (Auto) 21 H Eos % (Auto) 3 Baso % (Auto) 0 Neut # (Auto) 1.0 L Lymph # (Auto) 0.7 L [place] # (Auto) 0.5 Eos # (Auto) 0.1 Baso # (Auto) 0.0 Immature Gran # (Auto) 0.17 H Absolute Nucleated RBC 0.00 Immature Gran % 7 H Nucleated RBC % 0 Sodium 137 Potassium 3.4 D Chloride 109 H Carbon Dioxide 25.0 Anion Gap 3 L BUN 18 Creatinine 1.0 Estim Creat Clear Calc 80.9 eGFR > 60 BUN/Creatinine Ratio 18 Glucose 131 H Calculated Osmolality 277 Calcium 9.0 Corrected Calcium 9.3 Magnesium 1.8 Total Bilirubin 0.7 D AST 25 ALT 24 Alkaline Phosphatase 75 Total Protein 5.7 Albumin 3.6 Globulin 2.1 L Albumin/Globulin Ratio 1.7 Misc Test Result Platelets confirmed Quality Measures Quality Measures none Advance care planning discussed with:: patient Assessment & Plan Assessment Current Active Medications: Generic Name Dose Route Start Last Admin Trade Name Freq PRN Reason Stop Dose Admin Acetaminophen 650 mg 05/02/24 18:08 Acetaminophen 325 Mg Tablet PO 06/01/24 18:07 Q6H PRN Fever >100.3 or pain Albuterol/Ipratropium 3 ml 05/03/24 15:19 Albuterol/Ipratropium (Duoneb) Rt Lissett 3 Ml Nebu INH 06/02/24 18:59 Q4HRRT PRN shortness of breath Atorvastatin Calcium 40 mg 05/03/24 21:00 05/03/24 21:04 Atorvastatin Calcium 20 Mg Tablet PO 06/02/24 20:59 40 mg QPM MARSHAL Administration Protocol Enoxaparin Sodium 40 mg 05/02/24 18:15 05/04/24 10:09 Enoxaparin Sod Inj 40 Mg/0.4 Ml Syringe SC 05/16/24 18:14 40 mg QDAY MARSHAL Administration Finasteride 5 mg 05/03/24 14:30 05/04/24 10:09 Finasteride 5 Mg Tablet PO 06/02/24 14:29 5 mg QDAY MARSHAL Administration Piperacillin/Tazobactam/Dextrose 50 mls @ 12.5 mls/hr 05/02/24 22:00 05/04/24 13:30 Zosyn IV 05/09/24 21:59 12.5 mls/hr Q8HR MARSHAL Administration Ondansetron HCl 4 mg 05/02/24 18:08 Ondansetron Inj 2 Mg/Ml Inj 2 Ml IV 06/01/24 18:07 Q6H PRN NAUSEA OR VOMITING Protocol Sennosides 1 tab 05/02/24 18:08 05/03/24 05:56 Senna Tablet PO 06/01/24 18:07 1 tab QDAY PRN Administration constipation Protocol Tamsulosin HCl 0.8 mg 05/04/24 09:00 05/04/24 10:09 Tamsulosin Hcl 0.4 Mg Capsule PO 06/03/24 08:59 0.8 mg QDAY MARSHAL Administration Plan Gaviota Padilla is 73 yr male with PMH of hypertension, type 2 diabetes, hyperlipidemia, asthma, FAVIOLA, chronic urinary retention secondary to BPH, and osteoarthritis who presented to the ED due to shortness of breath and urinary discomfort for the past 3 days. Patient admitted for sepsis secondary to pyelonephritis and SOB. #Sepsis 2/2 acute left pyelonephritis #E coli UTI #BPH #Decompensated bladder #Overflow incontinence Patient is experiencing dysuria, poor stream, increased frequency with use of bathroom every 2-3 hours. Patient is aware of underlying BPH but has not been started on any medications for management. He denies any nausea, vomiting, abdominal pain, suprapubic pain, or hematuria. No CVA tenderness. Met SIRS 2/4 plus source. Lactic acid was normal at 1.3 UA positive for UTI with leukocyte esterase and [address] abdomen pelvis significant for left pyelonephritis and cystitis. Urine culture positive for E coi -Zosyn 3.375 g q6hr (05/02-) -start ceftriaxone 2 gm daily (until 05/11/23) -continue Mosher -Continue acetaminophen for fever -preliminary blood culture negative -consult urology, appreciate recs -start finasteride and tamsulosin for BPH -per urology, leave indwelling Mosher catheter at least for 1 week. Give him a trial of voiding. After that, if the patient is unable to void, he needs to be on intermittent catheterization. -follow-up with Dr. Dhaliwal 4-6 weeks -order Home health #Shortness of breath Ddx: Flu, COVID, bacteremia, CHF Patient stated that he has been having difficulty with breathing when walking around the house and at rest. He denies any orthopnea, PND, or lower extremity edema. Patient stated that he is typically able to do activities without difficulty. But it has been worse since past few days. Physical exam negative for signs of heart failure except for lower extremity +2 edema. Has been worked up by senior oracle adf developer Dr. Reyes but is unsure of any diagnoses. Echo showed Diastolic dysfuntcion stage 1 with EF 60-65%. No crackles, JVD, or b/L LE edema on physical exam. -Flu, COVID test #Hx FAVIOLA -CPAP HS #Hx osteoarthritis Home medications include cyclobenzaprine 10 mg daily, ibuprofen 800 mg 3 times daily as needed, meloxicam 15 mg daily #Hx hypertension Home medications include amlodipine 5 mg daily, lisinopril 40 mg daily, Toprol all 50 mg daily -Hold in setting of sepsis #Hx hyperlipidemia -start 20 mg atorvastatin Health maintenance: Dispo: med tele, sepsis 2/2 pyelo DVT prophylaxis: Lovenox 40 mg daily CODE STATUS: Full code Diet: CHO consistent The patient's management plan was discussed with my attending physician Dr. Mancia and senior Dr. Morgan. Claudia Mata, PGY-1 Attending Provider Attestation/Addendum I have discussed and was present for the essential components of the history, physical examination, diagnosis, and treatment plan with the resident. I agree with the patient's care as documented by the resident and amended herein by me. Tripp Mancia DO. Although this document has been carefully reviewed, there may still be some phonetic and other typographical errors. These errors are purely grammatical due to imperfections in the software program and should not be construed in any way to compromise the substance of the patient's medical care during this visit.
[2024-05-04] MEDS: ATORVASTATIN CALCIUM 20 MG TABLET 40 MG PO (20:46)
[2024-05-05] VITALS: BP 125/80; PULSE 78; RESP 18; TEMP 37; O2SAT 95
[2024-05-05 00:15] VITALS: PULSE 89; RESP 20; O2SAT 92; O2SAT 96
[2024-05-05] MEDS: ALBUTEROL/IPRATROPIUM (Duoneb) RT SOL 3 ML NEBU INH (00:15)
[2024-05-05 04:00] VITALS: BP 120/78; PULSE 82; RESP 17; TEMP 36.6; O2SAT 97
[2024-05-05 05:49] LABS: Basophils % (Auto) 1 % (0-2.5); Eosinophils # (Auto) 0.1 Thou/mm3 (0.0-0.5); Eosinophils % (Auto) 4 % (0-10); Hematocrit 29.2 % (41.0-53.0); Hemoglobin 9.8 g/dL (13.5-16.0); Immature Granulocytes % (Auto) 2 % (0-0); Immature Granulocytes Auto 0.03 Thou/mm3 (0.00-0.00); Lymphocytes # (Auto) 0.8 Thou/mm3 (1.0-4.8); Lymphocytes % (Auto) 44 % (10-50); Mean Corpuscular HGB Conc 33.6 g/dl (31.0-37.0); Mean Corpuscular Hemoglobin 27.3 pg (25.0-35.0); Mean Corpuscular Volume 81 fL (80-100); Monocytes # (Auto) 0.4 Thou/mm3 (0.0-0.8); Monocytes % (Auto) 21 % (0-12); Neutrophils # (Auto) 0.6 Thou/mm3 (1.8-7.7); Neutrophils % (Auto) 29 % (37-80); Nucleated Red Blood Cell % 0 /100 WBC (0); Platelet Count 90 Thou/mm3 (140-440); Red Blood Count 3.59 Miln/mm3 (4.50-5.90)
[2024-05-05 05:57] LABS: White Blood Count 1.9 Thou/mm3 (3.8-10.6)
[2024-05-05 06:00] VITALS: RESP 95
[2024-05-05 06:21] LABS: Alanine Aminotransferase 33 U/L (10-49); Albumin, Serum 3.7 gm/dL (3.4-4.8); Albumin/Globulin Ratio 1.7 (1.2-2.2); Alkaline Phosphatase 76 U/L (46-116); Anion Gap 10 (7-16); Aspartate Amino Transferase 37 U/L (0-34); BUN/Creatinine Ratio 16 Ratio (12-20); Bilirubin,Total 0.5 mg/dL (0.3-1.2); Blood Urea Nitrogen 14 mg/dL (9-23); Calcium 9.2 mg/dL (8.3-10.6); Calcium (Corrected) 9.4 mg/dL (8.5-10.1); Carbon Dioxide 25.4 mMol/L (20.0-31.0); Chloride 107 mMol/L (98-107); Creatinine (Component) 0.9 mg/dL (0.6-1.3); Estimated Creatinine Clearance 89.9 mL/min (>60); Globulin 2.2 gm/dL (2.3-3.5); Glucose 119 mg/dL (74-106); Osmolality,Calculated 284 (275-295); Potassium 3.8 mMol/L (3.4-5.1); Sodium 142 mMol/L (136-145); Total Protein 5.9 gm/dL (5.7-8.2); eGFR > 60 See Note
[2024-05-05 06:46] LABS: Iron 43 mcg/dL (65-175); Percent Iron Saturation 20 % (20-55); Total Iron Binding Capacity 214 mcg/dL (250-425); Unsaturated Iron Binding 171 (225-295)
[2024-05-05 08:00] VITALS: BP 130/77; PULSE 82; RESP 18; TEMP 36.2; O2SAT 95
[2024-05-05 08:17] VITALS: PULSE 18; PULSE 84; RESP 18; RESP 97; O2SAT 97
[2024-05-05] MEDS: FINASTERIDE 5 MG TABLET PO (08:32)
[2024-05-05] MEDS: cefTRIAXone 2 GM in SODIUM CHLORIDE 0.9% (P) 50 ML IV (08:32)
[2024-05-05] MEDS: ENOXAPARIN SOD INJ 40 MG/0.4 ML SYRINGE SC (08:32)
[2024-05-05] MEDS: TAMSULOSIN HCL 0.4 MG CAPSULE 0.8 MG PO (08:32)
--- NOTE | 2024-05-05 11:10 | PC.CC ---
Pt was entered and submitted on [facility] for HH (RN management and new FC), currently pending responses.
--- NOTE | 2024-05-05 11:15 | PC.CC ---
SS spoke to pt , Teri Padilla, in regards to DC today with HH. Per Teri there is no preference for HH. PCP: Jyoti Bahena (Last visit 3 weeks ago) next visit scheduled 05/12 Address: [address] [place] [address]
--- NOTE | 2024-05-05 11:51 | PD.RESDS ---
Planned Discharge Date 05/05/24 DS: Providers Provider Date of admission: 05/02/24 18:08 Primary care physician: Je Montes MD Admitting Provider: Nallely Light DO Attending Provider on Admission: Nallely Light DO Consults: 05/03/24 09:23 Consult to Urology Routine Comment: urinary retention Consulting Provider: Andreas Dhaliwal Attending Provider on DC: Claudia Mata MD Discharging Provider: Claudia Mata MD DS: Diagnosis Problem List Completed Was Problem List Reviewed/Reconciled?: Yes Hospital Course Hospital Course Hospital course: Reason for hospitalization: sepsis 2/2 pyelonephritis Gaviota Padilla is 73 yr male with PMH of hypertension, type 2 diabetes, hyperlipidemia, asthma, FAVIOLA, chronic urinary retention secondary to BPH, and osteoarthritis who presented to [facility] ED on 05/02/24 due to SOB and urinary discomfort for the past 3 days. Patient was admitted for sepsis secondary to pyelonephritis and SOB. Stated that he had been having difficulty with breathing when walking around the house and at rest. He denies any orthopnea, PND, or lower extremity edema. Typically able to do activities without difficulty. In regards to urinary discomfort, patient was experiencing dysuria, poor stream, increased frequency with use of bathroom every 2-3 hours. In ED, he had fever (103), elevated WBC from baseline (7.4), and UTI on UA. CT abdomen pelvis significant for left pyelonephritis and cystitis. Urology Dr. Dhaliwal was consulted after a mosher was placed and signficant improvement of discomfort with large urine output. Patient was diagnosed with decompensated bladder. Per Dr. Dhaliwal, mosher will stay in place for one week and undergo voiding trial. After that, if the patient is unable to void, he need to be on intermittent catheterization. Home health was ordered for assistance. Patient was treated with ceftriaxone and treatment will continue for 3 more days on ciprofloxacin 500mg BID. Echo was ordered to evaluate for SOB. It showed Diastolic dysfuntcion stage 1 with EF 60-65%. SOB did improve with breathing treatments. Patient's labs reflect pancytopenia. Encouraged to get further workup out patient. Patient is now in stable condition and ready for discharge. Recommendations were given as below. Discharge Recommendations: Continue tamsulosin 0.8 mg daily, finasteride 5 mg daily for BPH. Continue ciprofloxacin 500 mg twice daily for 3 more days for E. coli UTI. Follow-up with PCP within the next week. Follow-up with scheduled urology appointment. Please return to ED if symptoms return or worsen. Hospital Diagnoses: #Sepsis 2/2 acute left pyelonephritis #E coli UTI #BPH #Decompensated bladder #Overflow incontinence #Shortness of breath #Pancytopenia #Hx FAVIOLA #Hx osteoarthritis #Hx hypertension #Hx hyperlipidemia The patient's management plan was discussed with my attending physician Dr. Mancia and senior Dr. Morgan. Claudia Mata MD, PGY-1 Time Spent with Patient Time attestation: Total time spent providing and/or coordinating discharge services: Time spent: Greater than 30 minutes Home Health Home Health Referral Orders: 05/05/24 09:04 Home Health Referral Routine Reason For Exam: debility Home-Bound The patient must either because of illness or injury, need the aid of supportive devices such as crutches, canes, wheelchairs, and walkers; the use of special transportation; or the assistance of another person in order to leave their place of residence; OR have a condition such that leaving his or her home is medically contraindicated. In addition, the patient also meets the following criteria: patient is normally unable to leave the home and leaving home requires considerable taxing effort. Addendum to Home Health Certification Practitioner's Certification: I certify that the patient has been under my care in the hospital and the care of attending physician (see below). We had a [id number] encounter on (see date below). My clinical findings indicate that the patient is home bound per the above criteria and the Home Health Services noted in these orders are medically necessary. The primary reason for the [id number]-vv-[id number] encounter is related to the fact that the patient requires home health services. Date Certifying Qipl-cl-Onmp Physician Encounter: 05/02/24 Physician's Name who will Assume Oversight for Services: Je Montes Physician's Phone No.who will Assume Oversight for Service: [facility] [place] - Community Resources: No PT to Evaluate: No PT to evaluate and provide a treatmnet plan to increase patient's mobility and strength. Wound Care: No IV Therapy: No RN Safety Evaluation: Yes RN to evaluate and create a plan of care that will produce positive outcomes. Palliative Treatment: No Palliative treatment and evaluate the need for hospice. Home Health Aide - Personal Care: Yes: mosher catheter maintenance Home Health Aide to assist with any ADL's. Exam Vital Signs Temp Pulse Resp BP Pulse Ox O2 Del Method O2 Flow Rate 97.1 F 84 18 130/77 97 CPAP 2 05/05/24 08:00 05/05/24 08:17 05/05/24 08:17 05/05/24 08:00 05/05/24 08:17 05/05/24 08:00 05/05/24 08:00 FiO2 30 05/05/24 08:00 Narrative Exam General: Elderly male, laying comfortably in bed today, cooperative HEENT: NCAT, No JVD noted. Mucosa moist. Pupils are equal and reactive to light bilaterally Cardiovascular: Normal S1 and S2. Regular rate and rhythm. Respiratory: Lungs are clear to auscultation bilaterally. No wheezing or crackles heard. Abdomen: Soft, nontender, not distended, normal bowel sounds. : mosher in place. Skin: Warm to touch, dry, no rashes noted Musculoskeletal: No gross injuries. Able to move all 4 extremities. +2 edema only LLE , no CVA tederness. Neuro: Alert and oriented x3. No focal neuro deficits. Psych: Normal affect and mood Constitutional Comments: General: Elderly male, laying comfortably in bed today, cooperative HEENT: NCAT, No JVD noted. Mucosa moist. Pupils are equal and reactive to light bilaterally Cardiovascular: Normal S1 and S2. Regular rate and rhythm. Respiratory: Lungs are clear to auscultation bilaterally. No wheezing or crackles heard. Abdomen: Soft, nontender, not distended, normal bowel sounds. : mosher in place. Skin: Warm to touch, dry, no rashes noted Musculoskeletal: No gross injuries. Able to move all 4 extremities. +2 edema only LLE , no CVA tederness. Neuro: Alert and oriented x3. No focal neuro deficits. Psych: Normal affect and mood Discharge Plan Plan Patient Disposition: Home w/HOME HEALTH Patient condition on transfer: Stable Prescriptions/Referrals Prescriptions/Med Rec: New tamsulosin 0.4 mg Capsule 0.8 mg PO QDAY 30 Days Qty: 60 0RF finasteride 5 mg Tablet 5 mg PO QDAY 30 Days Qty: 30 0RF ciprofloxacin HCl [Cipro] 500 mg tablet 500 mg PO BID Qty: 6 0RF Continued rosuvastatin [Crestor] 10 MG tablet 10 mg PO QPM Qty: 0 Rx Instructions: 1 pm meloxicam 15 mg Tablet 15 mg PO QDAY Rx Instructions: 1 am amlodipine 10 mg Tablet 5 mg PO DAILY Rx Instructions: 1 pm metoprolol succinate 25 mg Tablet Extended Release 24 Hr 50 mg PO QPM Rx Instructions: 1 pm lisinopril 40 mg Tablet 40 mg PO QDAY Rx Instructions: 1 am cyclobenzaprine 10 mg tablet 10 mg PO QDAY Patient Comments: TAKE 1 TABLET BY MOUTH DAILY AT BEDTIME NEEDED Rx Instructions: @ 1pm oxybutynin chloride 5 mg tablet 5 mg PO BID Patient Comments: GENERIC FOR DITROPAN... TAKE 1 TABLET BY MOUTH TWICE DAILY FOR BLADDER Rx Instructions: 1 am & 1 pm nitroglycerin 0.4 mg tablet, sublingual 0.4 mg BUCCAL .once PRN (Reason: chest pain) Patient Comments: DISSOLVE 1 TABLET UNDER THE TONGUE NEEDED Rx Instructions: take one tab and call dr andres for further instruction epinephrine [EpiPen] 0.3 mg/0.3 mL auto-injector 0.3 ml subcut .once PRN (Reason: anaphylaxis) Patient Comments: peanuts ProAir RespiClick 90 mcg/actuation aerosol powdr breath activated 2 inh inhalation Q4H PRN (Reason: shortness of breath or wheezing) 30 Days Qty: 1 0RF furosemide [Lasix] 20 mg Tablet 20 mg PO DAILY Rx Instructions: 1 PM potassium chloride 10 mEq Tablet Extended Release 10 meq PO QDAY Rx Instructions: 1 am ibuprofen 800 mg Tablet 800 mg PO Q8H PRN (Reason: knee pain) No Action metformin 1,000 mg tablet 1,000 mg PO BID Patient Comments: TAKE 1 TABLET BY MOUTH TWICE DAILY WITH A MEAL Rx Instructions: 1 am and 1 pm Referrals: Je Montes MD [Primary Care Provider] - Patient/Caregiver Discharge Instructions Other Discharge Activity Instructions:: Continue tamsulosin 0.8 mg daily, finasteride 5 mg daily for BPH. Continue ciprofloxacin 500 mg twice daily for 7 more days for E. coli UTI. Follow-up with PCP within the next week. Follow-up with scheduled urology appointment. Please return to ED if symptoms return or worsen. Education Materials: Self-Catheterization for Men, Sepsis, Self Catheterization, Men Dc Print Language: Malay Stand Alone Forms: Deepti Award Info., Patient Portal Info Letter Discharge Order Discharge Orders: Discharge (Routine); Ordered 05/05/24 Ordered By: Claudia Mata Quality Discharge Quality Measures VTE prophylaxis Attestestation Attestation I have discussed and was present for the essential components of the discharge history, physical examination, diagnosis, and discharge treatment plan with the resident. I agree with the patient's discharge care as documented by the resident and amended herein by me. Tripp Mancia, . The patient understood all discharge instructions, all questions were answered satisfactorily. The patient was instructed to return to the Emergency Department is symptoms worsened or persisted. Patient was stable, afebrile, tolerating p.o. intake and ambulatory at time of discharge. Patient will require Mosher catheter upon discharge for at least 1 week, patient advised to follow-up with primary care physician at that time for continued evaluation and management posthospital discharge. Patient also has an appointment with urology, Dr. Dahliwal at the end of May for further workup of bladder dysfunction. Patient will need to complete a total 7-day course of antibiotics for urinary tract infection/pyelonephritis, ciprofloxacin 500 mg twice daily prescribed, see above. Patient understands all discharge instructions, all question asked and answered Although this document has been carefully reviewed, there may still be some phonetic and other typographical errors. These errors are purely grammatical due to imperfections in the software program and should not be construed in any way to compromise the substance of the patient's medical care during this visit.
--- NOTE | 2024-05-05 14:38 | PC.CC ---
Initial HH referral sent by THOMAS. [facility] AUGUST[facility] accepted the pt. Booked [facility]. Pending start of care date.
== END 2024-05-05 11:42 | disposition home health service (06) | DRG 872 ==
LOC: SERX 17:07 → SERHOLD 19:37 → S3SX 20:31
PROVIDERS: Nurse Practitioner Primary Care; Admitting Provider Internal Medicine; Emergency Provider Emergency Medicine; PCP Family Medicine; Visit Provider Internal Medicine
DX: A41.51 Sepsis due to Escherichia coli [E. coli] (principal); N10 Acute pyelonephritis; D61.818 Other pancytopenia; I10 Essential (primary) hypertension; E11.9 Type 2 diabetes mellitus without complications; N40.1 Benign prostatic hyperplasia with lower urinary tract symptoms; E78.5 Hyperlipidemia, unspecified; J45.909 Unspecified asthma, uncomplicated; G47.33 Obstructive sleep apnea (adult) (pediatric); M19.90 Unspecified osteoarthritis, unspecified site; R33.9 Retention of urine, unspecified; N39.490 Overflow incontinence; N30.90 Cystitis, unspecified without hematuria; Z79.1 Long term (current) use of non-steroidal anti-inflammatories (NSAID); Z79.899 Other long term (current) drug therapy; Z99.81 Dependence on supplemental oxygen; Z79.84 Long term (current) use of oral hypoglycemic drugs
CPT/HCPCS: 36415; 71046; 74176; 80053; 81001; 83540; 83550; 83605; 83735; 84100; 84145; 85025; 87040; 87077; 87081; 87086; 87186; 87400; 87502; 87811; 93306; 94640; 94660; 94664; A9270; J0131; J0696; J1650; J2543; J3475; J7030; J7050; J7120

== ENCOUNTER → 2024-05-10 | Outpatient (CLI) | payer MEDICARE, BC, SELFPAY ==
[2024-05-10 12:10] LABS: Albumin, Serum 4.2 gm/dL (3.4-4.8); Anion Gap 9 (7-16); BUN/Creatinine Ratio 24 Ratio (12-20); Blood Urea Nitrogen 24 mg/dL (9-23); Calcium 9.6 mg/dL (8.3-10.6); Calcium (Corrected) 9.6 mg/dL (8.5-10.1); Chloride 103 mMol/L (98-107); Glucose 119 mg/dL (74-106); Osmolality,Calculated 284 (275-295); Phosphorous 3.8 mg/dL (2.4-5.1); Potassium 4.4 mMol/L (3.4-5.1); Sodium 140 mMol/L (136-145); eGFR > 60 See Note
[2024-05-10 12:36] LABS: Glucose Estimated Average 128 mg/dL (80-131); Hemoglobin A1C 6.1 % Hgb (4.8-6.0)
== END | disposition home or self-care (01) ==
PROVIDERS: PCP Family Medicine; Referring Provider Family Medicine; Visit Provider Family Medicine
DX: E11.9 Type 2 diabetes mellitus without complications (principal)
CPT/HCPCS: 36415; 80069; 83036

== ENCOUNTER → 2024-06-08 | Outpatient (CLI) | payer MEDICARE, BC, SELFPAY ==
[2024-06-08 10:39] LABS: Basophils % (Auto) 0 % (0-2.5); Eosinophils # (Auto) 0.1 Thou/mm3 (0.0-0.5); Eosinophils % (Auto) 2 % (0-10); Hematocrit 35.9 % (41.0-53.0); Hemoglobin 11.7 g/dL (13.5-16.0); Immature Granulocytes % (Auto) 1 % (0-0); Immature Granulocytes Auto 0.03 Thou/mm3 (0.00-0.00); Lymphocytes # (Auto) 0.9 Thou/mm3 (1.0-4.8); Lymphocytes % (Auto) 37 % (10-50); Mean Corpuscular HGB Conc 32.6 g/dl (31.0-37.0); Mean Corpuscular Hemoglobin 26.5 pg (25.0-35.0); Mean Corpuscular Volume 81 fL (80-100); Monocytes # (Auto) 0.4 Thou/mm3 (0.0-0.8); Monocytes % (Auto) 16 % (0-12); Neutrophils % (Auto) 44 % (37-80); Nucleated Red Blood Cell % 0 /100 WBC (0); Platelet Count 156 Thou/mm3 (140-440); RDW Standard Deviation 43.1 fL (35.1-43.9); Red Blood Count 4.41 Miln/mm3 (4.50-5.90)
[2024-06-08 10:49] LABS: White Blood Count 2.4 Thou/mm3 (3.8-10.6)
[2024-06-08 10:51] LABS: Sed Rate (ESR) 62 mm/hr (0-20)
[2024-06-08 11:22] LABS: Albumin, Serum 4.3 gm/dL (3.4-4.8); Albumin/Globulin Ratio 1.9 (1.2-2.2); Alkaline Phosphatase 97 U/L (46-116); Anion Gap 9 (7-16); Aspartate Amino Transferase < 10 U/L (0-34); BUN/Creatinine Ratio 23 Ratio (12-20); Bilirubin,Total 0.6 mg/dL (0.3-1.2); Blood Urea Nitrogen 23 mg/dL (9-23); C-Reactive Protein 5.6 mg/dL (0.0-0.9); Calcium 9.3 mg/dL (8.3-10.6); Calcium (Corrected) 9.3 mg/dL (8.5-10.1); Chloride 104 mMol/L (98-107); Globulin 2.3 gm/dL (2.3-3.5); Glucose 121 mg/dL (74-106); Osmolality,Calculated 285 (275-295); Potassium 4.3 mMol/L (3.4-5.1); Sodium 141 mMol/L (136-145); Total Protein 6.6 gm/dL (5.7-8.2); Uric Acid 7.7 mg/dL (3.7-9.2); eGFR > 60 See Note
[2024-06-08 11:23] LABS: Alanine Aminotransferase 8 U/L (10-49)
[2024-06-08 12:03] LABS: RA Screen Positive (Negative); Rheumatoid Factor Titer 1:32
[2024-06-15 07:22] LABS: ANA Screen, IFA NEGATIVE (NEGATIVE)
== END | disposition home or self-care (01) ==
LOC: COPL 09:24
PROVIDERS: PCP Family Medicine; Referring Provider Urology; Visit Provider Urology
DX: M25.50 Pain in unspecified joint (principal)
CPT/HCPCS: 36415; 80053; 84550; 85025; 85652; 86038; 86140; 86430; 86431

== ENCOUNTER → 2024-06-16 | Outpatient (BNVA) | payer MEDICARE, BC, SELFPAY | END | disposition home or self-care (01) | PROVIDERS: PCP Family Medicine; Referring Provider Family Medicine; Visit Provider Urology | DX: N40.1 Benign prostatic hyperplasia with lower urinary tract symptoms (principal); N13.8 Other obstructive and reflux uropathy; I10 Essential (primary) hypertension; E11.9 Type 2 diabetes mellitus without complications; E78.5 Hyperlipidemia, unspecified | CPT/HCPCS: 81003; 99212; G0463 ==

== ENCOUNTER → 2024-06-22 | Outpatient (CLI) | payer MEDICARE, BC, SELFPAY ==
--- NOTE | 2024-06-22 09:16 | XR_ITS ---
Examination: Bilateral hands, 6 views. Technique: AP, Oblique, Lateral each hand total 6 views Date and time of exam: June 22, 2024 0952 hours INDICATIONS: Bilateral hand pain 2 months FINDINGS: Mild osteopenia Mild to moderate osteoarthritis interphalangeal joints bilaterally No erosive arthritis No fractures No cortical bone destruction Bilateral mild to moderate osteoarthritis radiocarpal and first carpometacarpal joints IMPRESSION: Osteoarthritis as above
== END | disposition home or self-care (01) ==
PROVIDERS: PCP Family Medicine; Referring Provider Family Medicine; Visit Provider Family Medicine
DX: M19.042 Primary osteoarthritis, left hand (principal); M19.041 Primary osteoarthritis, right hand
CPT/HCPCS: 73130

== ENCOUNTER → 2024-07-21 | Outpatient (BNVA) | payer MEDICARE, BC, SELFPAY | END | disposition home or self-care (01) | PROVIDERS: PCP Family Medicine; Referring Provider Family Medicine; Visit Provider Urology | DX: N40.1 Benign prostatic hyperplasia with lower urinary tract symptoms (principal); R39.12 Poor urinary stream; I10 Essential (primary) hypertension; E78.00 Pure hypercholesterolemia, unspecified; E11.9 Type 2 diabetes mellitus without complications | CPT/HCPCS: 51741; 51798 ==

== ENCOUNTER 2024-07-25 12:52 | Outpatient (RCR) | payer MEDICARE, BC, SELFPAY ==
--- NOTE | 2024-07-26 06:31 | CTCFLWUP_ITS ---
Patient: GAVIOTA PADILLA : 1950 Page 12 of 15 FOLLOW UP NOTE DATE OF SERVICE: 07/25/2024 NAME: GAVIOTA PADILLA ACCOUNT: [id number] : 1950 AGE: 74 INTERVAL HISTORY: Gaviota, a 71-year-old male with thrombocytopenia, hepatosplenomegaly, and fatty liver, presented with recent weight gain .. His history includes obesity, hypertension, dyslipidemia, arthritis, sleep apnea, and recent pulmonary embolism on Eliquis. He gained 20 pounds over 6 weeks while taking prednisone for a thumb injury. Liver biopsy showed minimal inflammation without fibrosis. Management includes scheduling CT scan for a 0.5mm liver nodule, restarting Metformin 1000mg twice daily, considering Ozempic for weight management, continuing Eliquis, tapering prednisone, and rheumatology referral for i nflammatory arthritis. Chief Complaint Follow-up for thrombocytopenia, hepatosplenomegaly, and fatty liver, recent weight gain, difficulty swallowing, high blood sugar History of Present Illness Gaviota Padilla is a 71-year-old male with a history of obesity, hypertension, dyslipidemia, arthritis, sleep apnea, and recent pulmonary embolism (PE) on Eliquis. He was referred for evaluation of thrombocytopenia, hepatosplenomegaly, and fatty liver infiltration. The patient reports recent weight fluctuations. He initially experienced weight loss to 202 pounds after discontinuing Metformin around the beginning of the year. However, he subsequently gained weight, now at 225 pounds, representing a 20-pound increase over approximately 6 weeks. This weight gain is attributed to prednisone use for a thumb injury. He is currently taking 20 mg of prednisone for 2 weeks, following 30 days of 10 mg. The patient expresses concern about the weight gain, particularly due to its impact on his fatty liver condition. Gaviota mentions experiencing difficulty swallowing, though the onset and duration of this symptom are not specified. His blood sugar levels have been running in the high 100s to about 130 without medication. He also reports chronic low blood pressure, which is believed to be related to his fatty liver condition. The patient's recent medical history includes an ultrasound in December that revealed hepatosplenomegaly, gallbladder sludge, and renal cysts. A 0.5 millimeter nodule was identified in the left lobe of the liver, necessitating a follow-up CT scan. A liver biopsy was performed, which was negative for fibrosis and showed minimal chronic portal inflammation and mild passive congestion. Gaviota has been adherent to his prescribed Eliquis for a recent pulmonary embolism. He is scheduled to see a public works manager for further evaluation and alternative treatments due to ongoing inflammation. The patient expresses interest in focusing on weight loss and adopting a vegetarian diet to improve his overall health. Medical History - Recent pulmonary embolism (PE) - Obesity - Hypertension - Dyslipidemia - Arthritis - Sleep apnea - Thrombocytopenia - Hepatosplenomegaly - Fatty liver disease (non-NAFLD, non-hepatitis) - Anemia - Chronic low blood pressure Surgical History - Liver biopsy, negative for fibrosis, minimal chronic portal inflammation - Bone marrow biopsy, negative Medications and Supplements - Metformin 1000 mg by mouth twice daily - Stopped around March 23 - Led to weight loss to 202 pounds - Prednisone 20 mg - Taking for 2 weeks - Previously took 10 mg for 30 days - For thumb injury - Affects glucose levels and causes weight gain - Weight increased to 225 pounds, a gain of 20 pounds in about 6 weeks - Eliquis - For recent pulmonary embolism (PE) Social History - Diet: Recently adopted a vegetarian diet - Weight: Current weight 225 pounds, gained 20 pounds in about 6 weeks - Exercise: Physical therapy recommended for finger issue Review of Systems General: Positive for weight gain, weight loss. HEENT: Positive for difficulty swallowing. Cardiovascular: Positive for chronic low blood pressure. Endocrine: Positive for elevated blood sugar. Vital Signs - Weight: 225 pounds Laboratory, Imaging, and Diagnostic Test Results - Ultrasound (December): - Hepatosplenomegaly - Gallbladder sludge - Renal cysts - 0.5 mm nodule in left lobe of liver - Enlarged liver and spleen - No lymph nodes noted - Biopsy (date not specified): - Liver biopsy: Negative for fibrosis, minimal chronic portal inflammation, mild passive congestion, liver parenchyma with minimal portal chronic inflammation, negative for fat, fibrosis, malignancy - Bone marrow biopsy (date not specified): Negative - Laboratory results (December): - Hemoglobin: 11 g/dL (low) - Laboratory results (April): - Iron studies: - Ceramide level percentage: Low - Iron saturation: Low - Ferritin: High - Laboratory results (date not specified): - Rheumatoid factor: Positive - ESR: High - CRP: High - Uric acid: Normal - Angiomatite factor: Positive ONCOLOGY HISTORY: DIAGNOSIS: 34 pound weight loss in 1 year. Type 2 diabetes currently on metformin started in August 2023. 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 Hepatomegaly and splenomegaly. 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 Obesity. REASON FOR TODAY?S VISIT: This is office follow-up visit. Mr. Padilla is here at [facility]. He is clinically doing well. Denies any complaints. Denies any cough, chest pain, abdominal pain or leg cramps. Ambulating well without any help. In the last 1 year he lost about 34 pounds. Recently he was diagnosed with type 2 diabetes. Currently he is on metformin 1 g p.o. daily. DATE OF DIAGNOSIS: STAGE/TNM: TREATMENT HISTORY: Care?Plan Start?Date Cycle Day Intent HISTORY OF PRESENT ILLNESS: Gaviota Padilla is a 74-year-old ENG speaking male is referred to hematology clinic for cytopenias. 2013: Patient was noted to have neutropenia, leukopenia as well as thrombocytopenia. The details are not available to me. 02/23/2018: WBC 1.7, ANC 0.6, hemoglobin 14.0, MCV 86, platelets 106,000. Immature granulocytes 2%. 06/02/2018: WBC 1.7, ANC 0.5, hemoglobin 13.7, MCV 86, platelets 106,000. Immature granulocytes 2%. 11/07/2019: WBC 1.8, ANC 0.6, hemoglobin 13.6, MCV 85, platelets 98,000. 03/05/2020: WBC 1.7, ANC 0.5, hemoglobin 12.5, MCV 86, platelets 100,000. 03/27/2020: Vitamin B12 is 1414, folate is more than 24.0, iron saturation 23%, ferritin 82, MARILYN negative, RF negative, T-cell gene rearrangement study negative. WBC 1.3, neutrophils 0.4, hemoglobin 13.9, platelets 96,000. Rheumatoid factor and MARILYN screen negative 04/23/2020: WBC 1.8, ANC 0.7, hemoglobin 13.5, platelets 92,000. 04/23/2020: Ultrasound abdomen? 04/27/2020: WBC 1.4, ANC 0.3, hemoglobin 12.4, platelets 97,000. 04/27/2020: Hepatitis panel negative 05/09/2020: CT scan of the abdomen and pelvis with IV contrast? 07/11/2020: Bone marrow biopsy and aspiration? 01/11/2021: WBC 1.9, ANC 0.6, hemoglobin 12.6, MCV 85, platelets 138,000. T bili 0.7, AST 28, ALT 27, 01/29/2021: Flow cytometry of the peripheral blood? 03/18/2021: Ultrasound of the abdomen? 04/18/2021: CT scan of the abdomen with IV contrast? 07/23/2021: WBC 2.1, ANC 0.6, hemoglobin 13.5, MCV 84, platelets 112,000, AST 30, ALT 23, alkaline phosphatase 108, T bili is 0.8. 09/11/2021: WBC 1.6, ANC 0.5, hemoglobin 13.7, MCV 83, platelets 101,000. 09/13/2021: CT-guided liver biopsy? 12/10/2021: Raul consultation. 01/17/2022: PET/CT scan? 03/04/2022: Bone marrow biopsy and aspiration? 02/24/2022: Bone scan? 02/28/2022: CT scan of the neck with IV contrast? 04/16/2022: CT-guided biopsy of the right parotid gland mass. 06/09/2022: WBC 2.5, ANC 0.6, platelet hemoglobin 14.1, MCV 82, platelets 150,000. 11/03/2022: WBC 2.4, ANC 0.9, hemoglobin 14.3, MCV 83, platelets 126,000. It is panel negative. AFP 2.3 05/07/2023: WBC 2.1, ANC 0.8, hemoglobin 13.9, MCV 84, platelets 112,000. AST is 25, ALT is 17, alkaline phosphatase is 93. 11/10/2023: WBC 2.6, ANC 0.8, hemoglobin 13.6, MCV 83, platelets 118,000. PAST MEDICAL HISTORY: HTN High cholesterol Arthritis Sleep Apnea OTHER MEDICAL HISTORY/CONDITIONS: FAMILY HISTORY: ?Clone Family Hx? SOCIAL HISTORY: MEDICATIONS: 1. amlodipine - 10 mg 0.5 tab Daily 2. amlodipine - 5 mg 1 tab Daily 3. cyclobenzaprine - 10 mg 1 tab Daily 4. furosemide - 20 mg 1 tab Daily 5. glucosamine HCl - 1,500 mg 1 tab Twice a Day 6. lisinopril - 40 mg 1 tab Daily 7. meloxicam - 15 mg 1 tab Daily 8. metFORMIN - 1,000 mg 1 tab Daily 9. metoprolol succinate - 50 mg 1 tab Daily 10. multivitamin - 1 Capsule Daily 11. oxybutynin chloride - 5 mg 1 tab As directed 12. potassium chloride - 10 mEq 1 Capsule Daily 13. rosuvastatin - 10 mg 1 tab Daily?[facility]ra Meds? Medications Last Reconciled by Heather Cline MA on 01/12/2024 ALLERGIES: No Known Drug Allergies; peanuts; clams/osyster REVIEW OF SYSTEMS: A complete 14-point review of systems was performed and is negative except as noted in interval history. PHYSICAL EXAMINATION: VITAL SIGNS: Temperature?99, B/P?133/80, Oxygen?Saturation?94% Weight?226?lbs PAIN: 0 - No pain GENERAL APPEARANCE: Appears well, in no apparent distress, appropriately interactive. HEENT: Normocephalic, no temporal wasting, normal conjunctiva, no scleral icterus, normal hearing, lips without lesions, neck normal range of motion. CARDIOVASCULAR: Not assessed. PULMONARY: Normal respiratory effort, no respiratory distress or use of accessory muscles, speaking in full sentences, no tachypnea. EXTREMITIES: No pedal edema or cyanosis. SKIN: Normal skin appearance. NEUROLOGIC: Alert and oriented x4. PSHYCHIATRIC: Appropriate affect, mood normal, behavior normal, intact thought and speech. LABORATORY DATA: I have personally reviewed and interpreted each of the patient?s relevant lab tests, abnormal findings are below: Date 05/05/24 05/10/24 06/08/24 ??WHITE?BLOOD?COUNT?(Thou/mm3) ? ? 2.4?L ??RED?BLOOD?COUNT?(Miln/mm3) ? ? 4.41?L ??HEMOGLOBIN?(gm/dl) ? ? 11.7?L ??HEMATOCRIT?(%) ? ? 35.9?L ??PLATELET?COUNT?(Thou/mm3) ? ? 156 ??NEUTROPHILS?%,?AUTO?(%) ? ? 44 ??LYMPH?%,?AUTO?(%) ? ? 37 ??NEUTROPHILS,?AUTO?(Thou/mm3) ? ? 1.0?L ??GLUCOSE,RANDOM?(mg/dL) 119?H 119?H 121?H ??BLOOD?UREA?NITROGEN?(mg/dL) 14 24?H 23 ??CREATININE?(mg/dL) 0.90 1.00 1.00 ??SODIUM?(mmol/L) 142 140 141 ??POTASSIUM?(mmol/L) 3.8 4.4 4.3 ??CHLORIDE?(mmol/L) 107 103 104 ??CrCl?(CandG)?(ml/min) 93.25 83.93 82.71 ??AST/SGOT?(Unit/L) 37?H ? <?10 ??ALT/SGPT?(Unit/L) 33 ? 8?L ??ALKALINE?PHOSPHATASE?(Unit/L) 76 ? 97 ??BILIRUBIN,?TOTAL?(mg/dL) 0.5 ? 0.6 ??PROTEIN?TOTAL?(gm/dl) 5.9 ? 6.6 ??ALBUMIN,?SERUM?(gm/dl) 3.7 4.2 4.3 ??GLOBULIN?(gm/dl) 2.2?L ? 2.3 ??ALBUMIN/GLOBULIN?RATIO 1.7 ? 1.9 ??CALCIUM,?SERUM?(mg/dL) 9.2 9.6 9.3 ??CALCIUM?SERUM?(CORRECTED)?(mg/dL) 9.4 9.6 9.3 ASSESSMENT/PLAN: NAFLD 71-year-old male with obesity, hypertension, dyslipidemia, arthritis, sleep apnea, recent PE on Eliquis, referred for thrombocytopenia and hepatosplenomegaly, presenting with weight gain and elevated blood sugar. Hepatosplenomegaly with fatty liver Assessment: Patient has hepatosplenomegaly confirmed by ultrasound in December, showing enlarged liver and spleen. A 0.5 mm nodule was noted in the left lobe of the liver, requiring further evaluation with CT scan. Liver biopsy was negative for fibrosis, showing minimal chronic portal inflammation, mild passive congestion, and negative for fat and malignancy. The condition is likely related to fatty liver, which is causing back pressure on the spleen. Recent weight gain of 20 pounds in 6 weeks, potentially due to prednisone use, may be exacerbating the condition. Fibroscan within the last year at [facility] is needed to assess liver damage. The patient's condition is classified as non-NAFLD, non-hepatitis fatty liver disease. Plan: - Schedule CT scan to evaluate 0.5 mm nodule in left lobe of liver - Arrange Fibroscan at [facility] to assess liver damage - Restart Metformin 1000 mg PO BID for weight loss and appetite suppression - Consider initiating Ozempic for weight loss, blood sugar control, and liver improvement - Encourage weight loss and adoption of a vegetarian diet rich in spinach, apples, and lemon juice - Consider referral for higher level liver care at [facility] or [place] Recent pulmonary embolism Assessment: Patient has a recent history of pulmonary embolism and is currently on anticoagulation therapy with Eliquis. Plan: - Continue Eliquis as prescribed for anticoagulation Prednisone-induced hyperglycemia and weight gain Assessment: Patient is currently taking 20 mg of prednisone for 2 weeks, following 30 days of 10 mg for a thumb injury. This has resulted in weight gain (20 pounds in 6 weeks) and elevated blood sugar levels (high 100s to about 130). The weight gain and hyperglycemia are problematic, particularly in the context of fatty liver disease. Plan: - Gradually taper and discontinue prednisone - Monitor blood glucose levels - Initiate physical therapy for the finger issue Anemia Assessment: Patient has persistent anemia with hemoglobin of 11 in December. Recent labs show low ceramide level percentage and saturation, with high ferritin likely due to inflammation. Further evaluation of iron levels is needed. Plan: - Recheck iron levels - Avoid iron supplements until lab results confirm iron deficiency Inflammatory arthritis Assessment: Patient has positive rheumatoid factor, elevated ESR and CRP, and positive angiomatite factor, suggesting inflammatory arthritis. Currently being treated with prednisone, which is causing significant side effects. 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 Repeat bone marrow labs and aspiration done on 03/04/2022 showed normocellular bone marrow with trilineage hematopoiesis and mild erythroid hyperplasia. PET/CT scan showed weakly hypermetabolic right parotid mass measuring 23 x 18 mm Bone scan negative HIV test negative (01/20/2022) Recent COVID infection nontender hepatosplenomegaly of uncClear etiology. Being followed by calculation reviewer at [facility] Mr. Padilla had liver biopsy on 09/12/2021 which did not show any significant steatosis ptosis or fibrosis. 7.6 cm benign lower pole left renal cyst. bone marrow biopsy is essentially a negative study (07/11/2020). Hepatomegaly with fatty infiltration documented on the ultrasound of the abdomen. Hepatitis panel negative Iron saturation 23% (03/27/2020) T-cell gene rearrangement study negative Rheumatoid factor and MARILYN screen negative Colonic diverticulosis. Hypertension Sleep apnea. Obesity. CT scan of the chest abdomen and pelvis with contrast to evaluate the cause for weight loss. AFP. I will see him back in clinic in 2 months for follow-up RETURN TO CLINIC: BILLING AND COMPLIANCE: I reviewed external records from providers outside my specialty as summarized above. I spent a total of 50 minutes on this patient?s care on the day of their visit excluding time spent related to any billed procedures. This time includes time spent with the patient as well as time spent documenting in the medical record, reviewing patients records and tests, obtaining history, placing orders, communicating with other healthcare professionals, counseling the patient, family or caregiver, and/or care coordination for the diagnoses above. Electronically Signed by: Francis Lantigua MD T: 6:29 AM CC: PCP: Vannesa Montes Referring: Vannesa Montes This document was completed utilizing speech recognition software. Grammatical errors, random word insertions, pronoun errors, and incomplete sentences are an occasional consequence of this system due to software limitations, ambient noise, and hardware issues. Any formal questions or concerns about the content, text or information contained within the body of this dictation should be directly addressed to the provider for clarification.
== END 2024-08-20 23:59 | disposition home or self-care (01) ==
LOC: SCTC 12:52
PROVIDERS: PCP Family Medicine; Referring Provider Family Medicine; Visit Provider Internal Medicine Hematology & Oncology
DX: D69.6 Thrombocytopenia, unspecified (principal); R16.2 Hepatomegaly with splenomegaly, not elsewhere classified; K76.0 Fatty (change of) liver, not elsewhere classified; E66.9 Obesity, unspecified; Z68.31 Body mass index [BMI] 31.0-31.9, adult; I10 Essential (primary) hypertension; E78.5 Hyperlipidemia, unspecified; Z86.711 Personal history of pulmonary embolism; Z79.01 Long term (current) use of anticoagulants; G47.30 Sleep apnea, unspecified; R73.9 Hyperglycemia, unspecified; D64.9 Anemia, unspecified; M19.90 Unspecified osteoarthritis, unspecified site; K57.30 Diverticulosis of large intestine without perforation or abscess without bleeding
CPT/HCPCS: 99212; G0463

== ENCOUNTER → 2024-08-01 | Outpatient (BNVA) | payer MEDICARE, BC, SELFPAY | END | disposition home or self-care (01) | PROVIDERS: PCP Family Medicine; Referring Provider Family Medicine; Visit Provider Urology | DX: N40.1 Benign prostatic hyperplasia with lower urinary tract symptoms (principal); N13.8 Other obstructive and reflux uropathy; R39.198 Other difficulties with micturition; I10 Essential (primary) hypertension; E78.00 Pure hypercholesterolemia, unspecified; E11.9 Type 2 diabetes mellitus without complications | CPT/HCPCS: 76872 ==

== ENCOUNTER → 2024-08-12 | Outpatient (CLI) | payer MEDICARE, BC, SELFPAY ==
--- NOTE | 2024-08-12 11:30 | XR_ITS ---
Examination: Ultrasound liver elastography Date and time: August 12, 2024 1133 hours INDICATIONS: Diagnosis fatty liver, leukopenia several years TECHNIQUE AND FINDINGS: Sonographic images liver, sagittal dimension 22.4 cm Normal hepatopedal portal venous flow Patent hepatic veins No focal liver lesions Tissue stiffness average 1.4 m/s mild to moderate liver fibrosis staging IMPRESSION: Significant hepatomegaly Tissue stiffness average 1.4 m/s, mild to moderate liver fibrosis
== END | disposition home or self-care (01) ==
LOC: CDIM 11:13
PROVIDERS: PCP Family Medicine; Referring Provider Internal Medicine Hematology & Oncology; Visit Provider Internal Medicine Hematology & Oncology
DX: R16.0 Hepatomegaly, not elsewhere classified (principal); K74.00 Hepatic fibrosis, unspecified
CPT/HCPCS: 76981

== ENCOUNTER → 2024-08-16 | Outpatient (BNVA) | payer MEDICARE, BC, SELFPAY | END | disposition home or self-care (01) | PROVIDERS: PCP Family Medicine; Referring Provider Family Medicine; Visit Provider Urology | DX: N32.89 Other specified disorders of bladder (principal); N40.1 Benign prostatic hyperplasia with lower urinary tract symptoms; N13.8 Other obstructive and reflux uropathy; I10 Essential (primary) hypertension; E78.00 Pure hypercholesterolemia, unspecified; G47.30 Sleep apnea, unspecified; E11.9 Type 2 diabetes mellitus without complications | CPT/HCPCS: 52000; 81003; 96372; A4217; A4649; C1894; J1580; A9270 ==

== ENCOUNTER → 2024-08-18 | Outpatient (CLI) | payer MEDICARE, BC, SELFPAY ==
[2024-08-18 09:58] LABS: Collection Type, Urine Clean Catch
[2024-08-18 10:35] LABS: Basophils % (Auto) 1 % (0-2.5); Eosinophils % (Auto) 2 % (0-10); Hematocrit 41.1 % (41.0-53.0); Hemoglobin 13.2 g/dL (13.5-16.0); Immature Granulocytes % (Auto) 1 % (0-0); Immature Granulocytes Auto 0.01 Thou/mm3 (0.00-0.00); Immature Reticulocyte Fraction 8.1 % (2.3-13.4); Lymphocytes % (Auto) 47 % (10-50); Mean Corpuscular HGB Conc 32.1 g/dl (31.0-37.0); Mean Corpuscular Hemoglobin 26.2 pg (25.0-35.0); Mean Corpuscular Volume 82 fL (80-100); Monocytes # (Auto) 0.2 Thou/mm3 (0.0-0.8); Monocytes % (Auto) 10 % (0-12); Neutrophils # (Auto) 0.9 Thou/mm3 (1.8-7.7); Neutrophils % (Auto) 40 % (37-80); Nucleated Red Blood Cell % 0 /100 WBC (0); Platelet Count 104 Thou/mm3 (140-440); RDW Standard Deviation 45.5 fL (35.1-43.9); Red Blood Count 5.04 Miln/mm3 (4.50-5.90); Reticulocyte Absolute Auto 48.4 Biln/L (25.0-75.0); Reticulocyte Hgb Content 31.4 pg (28.0-35.0)
[2024-08-18 10:36] LABS: Bilirubin,Urine Negative (Negative); Blood,Urine Negative (Negative); Clarity,Urine Clear (Clear/Hazy); Color,Urine Lt-Yellow (Lt Yel-Yel); Culture Indicated,Urine Not Indicated; Glucose, Urine Negative (Negative); Hyaline Casts,Urine < 1 /hpf (0-1); Ketones,Urine Negative (Negative); Leukocyte Esterase,Urine Negative (Negative); Nitrite,Urine Negative (Negative); PH,Urine 5.5 (5.0-7.0); Protein,Urine Trace (Neg - Trace); RBC,Urine 1 /hpf (0-3); Specific Gravity,Urine 1.023 (1.001-1.035); Squamous Epithelial Cell,Urine < 1 /hpf (0-5); Urobilinogen,Urine Negative mg/dL (0.0-1.0); WBC,Urine 2 /hpf (0-5)
[2024-08-18 10:40] LABS: Glucose Estimated Average 154 mg/dL (80-131)
[2024-08-18 10:44] LABS: Ferritin 65 ng/mL (10.5-307.3); Iron 78 mcg/dL (65-175); Percent Iron Saturation 21 % (20-55); Total Iron Binding Capacity 357 mcg/dL (250-425); Unsaturated Iron Binding 279 (225-295)
[2024-08-18 10:48] LABS: White Blood Count 2.1 Thou/mm3 (3.8-10.6)
[2024-08-18 10:56] LABS: Alanine Aminotransferase 12 U/L (10-49); Albumin, Serum 4.7 gm/dL (3.4-4.8); Albumin/Globulin Ratio 2.2 (1.2-2.2); Alkaline Phosphatase 97 U/L (46-116); Anion Gap 12 (7-16); Aspartate Amino Transferase 17 U/L (0-34); BUN/Creatinine Ratio 26 Ratio (12-20); Bilirubin,Total 0.6 mg/dL (0.3-1.2); Blood Urea Nitrogen 34 mg/dL (9-23); C-Reactive Protein < 0.5 mg/dL (0.0-0.9); Calcium 9.2 mg/dL (8.3-10.6); Calcium (Corrected) 9.2 mg/dL (8.5-10.1); Carbon Dioxide 25.1 mMol/L (20.0-31.0); Cardiac Risk Estimate 3.1 RATIO (4.0-6.7); Chloride 104 mMol/L (98-107); Cholesterol 104 mg/dL (132-200); Creatinine (Component) 1.3 mg/dL (0.6-1.3); Free T3 2.9 pg/mL (2.3-4.2); Free T4 (Free Thyroxine) 1.09 ng/dL (0.89-1.76); Globulin 2.1 gm/dL (2.3-3.5); Glucose 122 mg/dL (74-106); HDL Cholesterol 34 mg/dL (40-60); LDH (Lactate Dehydrogenase) 124 U/L (120-246); LDL Cholesterol,Calculated 45 mg/dL (0-130); Osmolality,Calculated 289 (275-295); Potassium 4.3 mMol/L (3.4-5.1); Sodium 141 mMol/L (136-145); Thyroid Stimulating Hormone 3.11 uIU/mL (0.55-4.78); Total Protein 6.8 gm/dL (5.7-8.2); Triglycerides 127 mg/dL (30-150); eGFR 58 See Note
[2024-08-18 11:23] LABS: Folate 23.42 ng/mL (>5.38); Hepatitis A Antibody IgM Non Reactive (Non React); Hepatitis B Core Antibody IgM Non Reactive (Non React); Hepatitis B Surface Antigen Non Reactive (Non React); Hepatitis C Antibody Non Reactive (Non React); Vitamin B12 759 pg/mL (211-911)
[2024-08-18 11:57] LABS: Cocci Serology, IgM Negative (Negative)
[2024-08-18 12:04] LABS: Sed Rate (ESR) 12 mm/hr (0-20)
[2024-08-18 15:25] LABS: RA Screen Negative (Negative)
[2024-08-19 11:34] LABS: Cocci Serology, IgG Negative (Negative)
[2024-08-24 03:07] LABS: Cardiolipin Ab (IgA) <2.0 APL-U/mL; Cardiolipin Ab (IgG) <2.0 GPL-U/mL; PSA, Total 3.5 ng/mL (< OR = 4.0); Sjogren's antibody (SS-A) <1.0 NEG AI (<1.0 NEGATIVE); Sm Antibody <1.0 NEG AI (<1.0 NEGATIVE)
[2024-08-24 06:50] LABS: ANA Screen, IFA NEGATIVE (NEGATIVE); Actin Antibody (IgG)* <20 U; CCP Antibody (IgG)* <16 Units; Cardiolipin Ab (IgM) <2.0 MPL-U/mL; Complement Component C3* 174 mg/dL (82-185); Complement Component C4c* 37 mg/dL (15-53); DNA (ds) Antibody* <1 IU/mL; Haptoglobin* 206 mg/dL (43-212); PSA, % Free 20 % (calc) (>25); Parvovirus B19 Ab IgG 4.7; Parvovirus B19 Ab IgM 0.2; Sjogren's Antibody (SS-B) <1.0 NEG AI (<1.0 NEGATIVE); Sm/RNP Antibody <1.0 NEG AI (<1.0 NEGATIVE); Thyroglobulin Antibodies* <1 IU/mL (< OR = 1); Thyroid Peroxidase Antibodies* 6 IU/mL (<9)
== END | disposition home or self-care (01) ==
LOC: COPL 09:11
PROVIDERS: PCP Family Medicine; Referring Provider Internal Medicine Hematology & Oncology; Visit Provider Internal Medicine Rheumatology
DX: D69.6 Thrombocytopenia, unspecified (principal); D72.819 Decreased white blood cell count, unspecified; M19.90 Unspecified osteoarthritis, unspecified site; M79.641 Pain in right hand; M79.89 Other specified soft tissue disorders; R53.83 Other fatigue
CPT/HCPCS: 36415; 80053; 80061; 80074; 81001; 82607; 82728; 82746; 83010; 83036; 83540; 83550; 83615; 84153; 84154; 84439; 84443; 84481; 85025; 85046; 85652; 86015; 86038; 86140; 86147; 86160; 86200; 86225; 86235; 86331; 86376; 86430; 86635; 86747; 86800

== ENCOUNTER → 2024-10-04 | Outpatient (CLI) | payer MEDICARE, BC, SELFPAY ==
--- NOTE | 2024-10-04 09:29 | XR_ITS ---
Examination: Venous duplex lower extremity sonogram, bilateral. Date and time of exam: October 04, 2024 1017 hours INDICATIONS: Recurrent leg swelling 20 years Technique: Multiple sonographic images of the deep venous system have been obtained. B-mode/2-D grayscale imaging of vascular structures and Doppler spectral analysis (waveforms) and color performed Both legs are examined. Findings: Deep venous systems do not demonstrate abnormal echogenicity. All visualized deep veins exhibit compressibility. All visualized deep veins exhibit augmentation. Impression: Negative for deep vein thrombosis
== END | disposition home or self-care (01) ==
PROVIDERS: PCP Internal Medicine; Referring Provider Physician Assistant; Visit Provider Physician Assistant
DX: N40.1 Benign prostatic hyperplasia with lower urinary tract symptoms (principal); M79.89 Other specified soft tissue disorders
CPT/HCPCS: 93970

== ENCOUNTER 2024-10-13 13:33 | Outpatient (RCR) | payer MEDICARE, BC, SELFPAY ==
--- NOTE | 2024-10-17 06:46 | CTCFLWUP_ITS ---
Patient: GAVIOTA PADILLA : 1950 Page 12 of 15 FOLLOW UP NOTE DATE OF SERVICE: 10/13/2024 NAME: GAVIOTA PADILLA ACCOUNT: [id number] : 1950 AGE: 74 INTERVAL HISTORY: Pj Meek, a male with obesity, hypertension, hepatosplenomegaly, NAFLD, and diabetes, presented with recent weight gain. His hepatitis panel was negative, with labs showing high calcium, improved magnesium, low platelets (104), and low WBC. CT scan and Fibroscan were ordered at [facility]. Management includes avoiding Tylenol with alcohol, continuing metformin 1000mg twice daily, and considering Ozempic or Rybelsus for weight/diabetes management. Gaviota is scheduled for prostate surgery on November [address] Gardner, with recommendation for Kegel exercises to prevent post-surgical incontinence. Chief Complaint Follow-up for thrombocytopenia, hepatosplenomegaly, and fatty liver, recent weight gain, difficulty swallowing, high blood sugar History of Present Illness Gaviota Padilla is a 74-year-old male with a history of obesity, hypertension, dyslipidemia, arthritis, sleep apnea, and recent pulmonary embolism (PE) on Eliquis. He was referred for evaluation of thrombocytopenia, hepatosplenomegaly, and fatty liver infiltration. The patient reports recent weight fluctuations. He initially experienced weight loss to 202 pounds after discontinuing Metformin around the beginning of the year. However, he subsequently gained weight, now at 225 pounds, representing a 20-pound increase over approximately 6 weeks. This weight gain is attributed to prednisone use for a thumb injury. He is currently taking 20 mg of prednisone for 2 weeks, following 30 days of 10 mg. The patient expresses concern about the weight gain, particularly due to its impact on his fatty liver condition. Gaviota mentions experiencing difficulty swallowing, though the onset and duration of this symptom are not specified. His blood sugar levels have been running in the high 100s to about 130 without medication. He also reports chronic low blood pressure, which is believed to be related to his fatty liver condition. The patient's recent medical history includes an ultrasound in December that revealed hepatosplenomegaly, gallbladder sludge, and renal cysts. A 0.5 millimeter nodule was identified in the left lobe of the liver, necessitating a follow-up CT scan. A liver biopsy was performed, which was negative for fibrosis and showed minimal chronic portal inflammation and mild passive congestion. Gaviota has been adherent to his prescribed Eliquis for a recent pulmonary embolism. He is scheduled to see a hand cutter apprentice for further evaluation and alternative treatments due to ongoing inflammation. The patient expresses interest in focusing on weight loss and adopting a vegetarian diet to improve his overall health. Medical History - Recent pulmonary embolism (PE) - Obesity - Hypertension - Dyslipidemia - Arthritis - Sleep apnea - Thrombocytopenia - Hepatosplenomegaly - Fatty liver disease (non-NAFLD, non-hepatitis) - Anemia - Chronic low blood pressure Surgical History - Liver biopsy, negative for fibrosis, minimal chronic portal inflammation - Bone marrow biopsy, negative Medications and Supplements - Metformin 1000 mg by mouth twice daily - Stopped around March 23 - Led to weight loss to 202 pounds - Prednisone 20 mg - Taking for 2 weeks - Previously took 10 mg for 30 days - For thumb injury - Affects glucose levels and causes weight gain - Weight increased to 225 pounds, a gain of 20 pounds in about 6 weeks - Eliquis - For recent pulmonary embolism (PE) Social History - Diet: Recently adopted a vegetarian diet - Weight: Current weight 225 pounds, gained 20 pounds in about 6 weeks - Exercise: Physical therapy recommended for finger issue Review of Systems General: Positive for weight gain, weight loss. HEENT: Positive for difficulty swallowing. Cardiovascular: Positive for chronic low blood pressure. Endocrine: Positive for elevated blood sugar. Vital Signs - Weight: 225 pounds Laboratory, Imaging, and Diagnostic Test Results - Ultrasound (December): - Hepatosplenomegaly - Gallbladder sludge - Renal cysts - 0.5 mm nodule in left lobe of liver - Enlarged liver and spleen - No lymph nodes noted - Biopsy (date not specified): - Liver biopsy: Negative for fibrosis, minimal chronic portal inflammation, mild passive congestion, liver parenchyma with minimal portal chronic inflammation, negative for fat, fibrosis, malignancy - Bone marrow biopsy (date not specified): Negative - Laboratory results (December): - Hemoglobin: 11 g/dL (low) - Laboratory results (April): - Iron studies: - Ceramide level percentage: Low - Iron saturation: Low - Ferritin: High - Laboratory results (date not specified): - Rheumatoid factor: Positive - ESR: High - CRP: High - Uric acid: Normal - Angiomatite factor: Positive ONCOLOGY HISTORY:?[facility] Hx? DIAGNOSIS: 34 pound weight loss in 1 year. Type 2 diabetes currently on metformin started in August 2023. 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 Hepatomegaly and splenomegaly. 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 Obesity. REASON FOR TODAY?S VISIT: This is office follow-up visit. Mr. Padilla is here at [facility]. He is clinically doing well. Denies any complaints. Denies any cough, chest pain, abdominal pain or leg cramps. Ambulating well without any help. In the last 1 year he lost about 34 pounds. Recently he was diagnosed with type 2 diabetes. Currently he is on metformin 1 g p.o. daily. DATE OF DIAGNOSIS: STAGE/TNM: TREATMENT HISTORY: Care?Plan Start?Date Cycle Day Intent HISTORY OF PRESENT ILLNESS: Gaviota Padilla is a 74-year-old ENG speaking male is referred to hematology clinic for cytopenias. 2013: Patient was noted to have neutropenia, leukopenia as well as thrombocytopenia. The details are not available to me. 02/23/2018: WBC 1.7, ANC 0.6, hemoglobin 14.0, MCV 86, platelets 106,000. Immature granulocytes 2%. 06/02/2018: WBC 1.7, ANC 0.5, hemoglobin 13.7, MCV 86, platelets 106,000. Immature granulocytes 2%. 11/07/2019: WBC 1.8, ANC 0.6, hemoglobin 13.6, MCV 85, platelets 98,000. 03/05/2020: WBC 1.7, ANC 0.5, hemoglobin 12.5, MCV 86, platelets 100,000. 03/27/2020: Vitamin B12 is 1414, folate is more than 24.0, iron saturation 23%, ferritin 82, MARILYN negative, RF negative, T-cell gene rearrangement study negative. WBC 1.3, neutrophils 0.4, hemoglobin 13.9, platelets 96,000. Rheumatoid factor and MARILYN screen negative 04/23/2020: WBC 1.8, ANC 0.7, hemoglobin 13.5, platelets 92,000. 04/23/2020: Ultrasound abdomen? 04/27/2020: WBC 1.4, ANC 0.3, hemoglobin 12.4, platelets 97,000. 04/27/2020: Hepatitis panel negative 05/09/2020: CT scan of the abdomen and pelvis with IV contrast? 07/11/2020: Bone marrow biopsy and aspiration? 01/11/2021: WBC 1.9, ANC 0.6, hemoglobin 12.6, MCV 85, platelets 138,000. T bili 0.7, AST 28, ALT 27, 01/29/2021: Flow cytometry of the peripheral blood? 03/18/2021: Ultrasound of the abdomen? 04/18/2021: CT scan of the abdomen with IV contrast? 07/23/2021: WBC 2.1, ANC 0.6, hemoglobin 13.5, MCV 84, platelets 112,000, AST 30, ALT 23, alkaline phosphatase 108, T bili is 0.8. 09/11/2021: WBC 1.6, ANC 0.5, hemoglobin 13.7, MCV 83, platelets 101,000. 09/13/2021: CT-guided liver biopsy? 12/10/2021: Raul consultation. 01/17/2022: PET/CT scan? 03/04/2022: Bone marrow biopsy and aspiration? 02/24/2022: Bone scan? 02/28/2022: CT scan of the neck with IV contrast? 04/16/2022: CT-guided biopsy of the right parotid gland mass. 06/09/2022: WBC 2.5, ANC 0.6, platelet hemoglobin 14.1, MCV 82, platelets 150,000. 11/03/2022: WBC 2.4, ANC 0.9, hemoglobin 14.3, MCV 83, platelets 126,000. It is panel negative. AFP 2.3 05/07/2023: WBC 2.1, ANC 0.8, hemoglobin 13.9, MCV 84, platelets 112,000. AST is 25, ALT is 17, alkaline phosphatase is 93. 11/10/2023: WBC 2.6, ANC 0.8, hemoglobin 13.6, MCV 83, platelets 118,000. PAST MEDICAL HISTORY: HTN High cholesterol Arthritis Sleep Apnea OTHER MEDICAL HISTORY/CONDITIONS: FAMILY HISTORY: ?Clone Family Hx? SOCIAL HISTORY: MEDICATIONS: 1. amlodipine - 10 mg 0.5 tab Daily 2. amlodipine - 5 mg 1 tab Daily 3. cyclobenzaprine - 10 mg 1 tab Daily 4. furosemide - 20 mg 1 tab Daily 5. lisinopril - 40 mg 1 tab Daily 6. meloxicam - 15 mg 1 tab Daily 7. metFORMIN - 1,000 mg 1 tab Daily 8. metoprolol succinate - 50 mg 1 tab Daily 9. potassium chloride - 10 mEq 1 Capsule Daily 10. rosuvastatin - 10 mg 1 tab Daily 11. sulfamethoxazole-trimethoprim - 800-160 mg tab As directed 12. tamsulosin - 0.4 mg 1 Capsule Daily?Palabra Meds? Medications Last Reconciled by Cyn Wu MA on 10/13/2024 ALLERGIES: No Known Drug Allergies; peanuts; clams/osyster REVIEW OF SYSTEMS: A complete 14-point review of systems was performed and is negative except as noted in interval history. PHYSICAL EXAMINATION:?[facility] PE? VITAL SIGNS: Temperature?98, B/P?102/65, Oxygen?Saturation?95% PAIN: 0 - No pain GENERAL APPEARANCE: Appears well, in no apparent distress, appropriately interactive. HEENT: Normocephalic, no temporal wasting, normal conjunctiva, no scleral icterus, normal hearing, lips without lesions, neck normal range of motion. CARDIOVASCULAR: Not assessed. PULMONARY: Normal respiratory effort, no respiratory distress or use of accessory muscles, speaking in full sentences, no tachypnea. EXTREMITIES: No pedal edema or cyanosis. SKIN: Normal skin appearance. NEUROLOGIC: Alert and oriented x4. PSHYCHIATRIC: Appropriate affect, mood normal, behavior normal, intact thought and speech. LABORATORY DATA: I have personally reviewed and interpreted each of the patient?s relevant lab tests, abnormal findings are below: Date 08/18/24 ??GLUCOSE,RANDOM?(mg/dL) 122?H ??BLOOD?UREA?NITROGEN?(mg/dL) 34?H ??CREATININE?(mg/dL) 1.30 ??SODIUM?(mmol/L) 141 ??POTASSIUM?(mmol/L) 4.3 ??CHLORIDE?(mmol/L) 104 ??CrCl?(CandG)?(ml/min) 61.57 ??AST/SGOT?(Unit/L) 17 ??ALT/SGPT?(Unit/L) 12 ??ALKALINE?PHOSPHATASE?(Unit/L) 97 ??BILIRUBIN,?TOTAL?(mg/dL) 0.6 ??PROTEIN?TOTAL?(gm/dl) 6.8 ??ALBUMIN,?SERUM?(gm/dl) 4.7 ??GLOBULIN?(gm/dl) 2.1?L ??ALBUMIN/GLOBULIN?RATIO 2.2 ??CALCIUM,?SERUM?(mg/dL) 9.2 ??CALCIUM?SERUM?(CORRECTED)?(mg/dL) 9.2 ??LDH,?TOTAL?(Unit/L) 124 ??RETICULOCYTE?ABSOLUTE?AUTO?(Biln/L) 48.4 ??TOTAL?IRON?BINDING?CAP?(S*)?(mcg/dL) 357 ??UNBOUND?IBC?(mcg/dL) 279 ASSESSMENT/PLAN:?Claudette Lantigua Assessment/Plan? NAFLD 74-year-old male with obesity, hypertension, dyslipidemia, arthritis, sleep apnea, recent PE on Eliquis, referred for thrombocytopenia and hepatosplenomegaly, presenting with weight gain and elevated blood sugar. Hepatosplenomegaly with fatty liver Assessment: Patient has hepatosplenomegaly confirmed by ultrasound in December, showing enlarged liver and spleen. A 0.5 mm nodule was noted in the left lobe of the liver, requiring further evaluation with CT scan. Liver biopsy was negative for fibrosis, showing minimal chronic portal inflammation, mild passive congestion, and negative for fat and malignancy. The condition is likely related to fatty liver, which is causing back pressure on the spleen. Recent weight gain of 20 pounds in 6 weeks, potentially due to prednisone use, may be exacerbating the condition. Fibroscan within the last year at [facility] is needed to assess liver damage. The patient's condition is classified as non-NAFLD, non-hepatitis fatty liver disease. Plan: - Schedule CT scan to evaluate 0.5 mm nodule in left lobe of liver - Arrange Fibroscan at [facility] to assess liver damage - Restart Metformin 1000 mg PO BID for weight loss and appetite suppression - Consider initiating Ozempic for weight loss, blood sugar control, and liver improvement - Encourage weight loss and adoption of a vegetarian diet rich in spinach, apples, and lemon juice - Consider referral for higher level liver care at [facility] or [place] Recent pulmonary embolism Assessment: Patient has a recent history of pulmonary embolism and is currently on anticoagulation therapy with Eliquis. Plan: - Continue Eliquis as prescribed for anticoagulation Prednisone-induced hyperglycemia and weight gain Assessment: Patient is currently taking 20 mg of prednisone for 2 weeks, following 30 days of 10 mg for a thumb injury. This has resulted in weight gain (20 pounds in 6 weeks) and elevated blood sugar levels (high 100s to about 130). The weight gain and hyperglycemia are problematic, particularly in the context of fatty liver disease. Plan: - Gradually taper and discontinue prednisone - Monitor blood glucose levels - Initiate physical therapy for the finger issue Anemia Assessment: Patient has persistent anemia with hemoglobin of 11 in December. Recent labs show low ceramide level percentage and saturation, with high ferritin likely due to inflammation. Further evaluation of iron levels is needed. Plan: - Recheck iron levels - Avoid iron supplements until lab results confirm iron deficiency Inflammatory arthritis Assessment: Patient has positive rheumatoid factor, elevated ESR and CRP, and positive angiomatite factor, suggesting inflammatory arthritis. Currently being treated with prednisone, which is causing significant side effects. 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 Repeat bone marrow labs and aspiration done on 03/04/2022 showed normocellular bone marrow with trilineage hematopoiesis and mild erythroid hyperplasia. PET/CT scan showed weakly hypermetabolic right parotid mass measuring 23 x 18 mm Bone scan negative HIV test negative (01/20/2022) Recent COVID infection nontender hepatosplenomegaly of uncClear etiology. Being followed by head still operator at [facility] Mr. Padilla had liver biopsy on 09/12/2021 which did not show any significant steatosis ptosis or fibrosis. 7.6 cm benign lower pole left renal cyst. bone marrow biopsy is essentially a negative study (07/11/2020). Hepatomegaly with fatty infiltration documented on the ultrasound of the abdomen. Hepatitis panel negative Iron saturation 23% (03/27/2020) T-cell gene rearrangement study negative Rheumatoid factor and MARILYN screen negative Colonic diverticulosis-lab with PCP Hypertension follow-up with PCP Sleep apnea. Follow-up with PCP Obesity. Follow-up with PCP Elevated PSA / Scheduled prostate surgery Assessment: PSA level is 3.5. Patient is scheduled for prostate surgery on November [address] Gardner at [facility]. Plan: - Prostate surgery scheduled for November [address] Gardner at [facility] - Recommend Kegel exercises to prevent post-surgical incontinence ORDERS: Order # Description [id number] Comprehensive Metabolic Panel - 12 + CBC with Auto Diff [id number] Follow Up 6 Month RETURN TO CLINIC: I reviewed the diagnosis, prognosis, and recommended treatment/procedure options with the patient (and/or their legal veterans service representative), including the potential benefits, risks, side effects and alternative therapies. We also discussed the option of no treatment and the possibility of clinical trial participation, if applicable. All questions were addressed, and they demonstrated understanding. They provided informed consent to proceed with the proposed plan of care. BILLING AND COMPLIANCE: I reviewed external records from providers outside my specialty as summarized above. I spent a total of 50 minutes on this patient?s care on the day of their visit excluding time spent related to any billed procedures. This time includes time spent with the patient as well as time spent documenting in the medical record, reviewing patients records and tests, obtaining history, placing orders, communicating with other healthcare professionals, counseling the patient, family or caregiver, and/or care coordination for the diagnoses above. Electronically Signed by: Francis Lantigua MD T: 6:43 AM CC: Chandu?Cleopatra?Louis,? PCP: Chandu Orellana Referring: Chandu Orellana This document was completed utilizing speech recognition software. Grammatical errors, random word insertions, pronoun errors, and incomplete sentences are an occasional consequence of this system due to software limitations, ambient noise, and hardware issues. Any formal questions or concerns about the content, text or information contained within the body of this dictation should be directly addressed to the provider for clarification.
== END 2024-10-20 23:59 | disposition home or self-care (01) ==
LOC: SCTC 13:33
PROVIDERS: PCP Internal Medicine; Referring Provider Internal Medicine; Visit Provider Internal Medicine Hematology & Oncology
DX: D69.6 Thrombocytopenia, unspecified (principal); D72.819 Decreased white blood cell count, unspecified; K76.0 Fatty (change of) liver, not elsewhere classified; E66.9 Obesity, unspecified; I10 Essential (primary) hypertension; E78.5 Hyperlipidemia, unspecified; R13.10 Dysphagia, unspecified; G47.30 Sleep apnea, unspecified; Z86.711 Personal history of pulmonary embolism; Z79.01 Long term (current) use of anticoagulants; K76.89 Other specified diseases of liver; E11.65 Type 2 diabetes mellitus with hyperglycemia; D64.9 Anemia, unspecified; N28.1 Cyst of kidney, acquired
CPT/HCPCS: 99212; G0463

== ENCOUNTER → 2024-11-07 | Outpatient (CLI) | payer MEDICARE, BC, SELFPAY ==
[2024-11-07 08:56] LABS: Basophils # (Auto) 0.0 Thou/mm3 (0.0-0.2); Basophils % (Auto) 1 % (0-2.5); Eosinophils # (Auto) 0.0 Thou/mm3 (0.0-0.5); Eosinophils % (Auto) 2 % (0-10); Hematocrit 36.4 % (41.0-53.0); Hemoglobin 11.6 g/dL (13.5-16.0); Immature Granulocytes Auto 0.34 Thou/mm3 (0.00-0.00); Lymphocytes # (Auto) 0.9 Thou/mm3 (1.0-4.8); Lymphocytes % (Auto) 44 % (10-50); Mean Corpuscular HGB Conc 31.9 g/dl (31.0-37.0); Mean Corpuscular Hemoglobin 28.0 pg (25.0-35.0); Mean Corpuscular Volume 88 fL (80-100); Monocytes # (Auto) 0.2 Thou/mm3 (0.0-0.8); Monocytes % (Auto) 11 % (0-12); Neutrophils # (Auto) 0.5 Thou/mm3 (1.8-7.7); Neutrophils % (Auto) 26 % (37-80); Nucleated Red Blood Cell # 0.00 Thou/mm3 (0.00-0.00); Nucleated Red Blood Cell % 0 /100 WBC (0); Platelet Count 96 Thou/mm3 (140-440); RDW Standard Deviation 50.0 fL (35.1-43.9); Red Blood Count 4.15 Miln/mm3 (4.50-5.90); White Blood Count 2.1 Thou/mm3 (3.8-10.6)
[2024-11-07 09:15] LABS: INR 1.0 (0.9-1.3); Partial Thromboplastin Time 26.1 Seconds (22.0-36.0); Prothrombin Time 10.5 Seconds (9.0-12.2)
[2024-11-07 09:51] LABS: Alanine Aminotransferase 9 U/L (10-49); Albumin, Serum 4.4 gm/dL (3.4-4.8); Albumin/Globulin Ratio 2.3 (1.2-2.2); Alkaline Phosphatase 83 U/L (46-116); Anion Gap 11 (7-16); Aspartate Amino Transferase 18 U/L (0-34); BUN/Creatinine Ratio 19 Ratio (12-20); Bilirubin,Total 0.5 mg/dL (0.3-1.2); Blood Urea Nitrogen 28 mg/dL (9-23); Calcium 10.1 mg/dL (8.3-10.6); Calcium (Corrected) 10.1 mg/dL (8.5-10.1); Carbon Dioxide 26.0 mMol/L (20.0-31.0); Chloride 106 mMol/L (98-107); Creatinine (Component) 1.5 mg/dL (0.6-1.3); Globulin 1.9 gm/dL (2.3-3.5); Glucose 125 mg/dL (74-106); Osmolality,Calculated 291 (275-295); Potassium 4.6 mMol/L (3.4-5.1); Sodium 143 mMol/L (136-145); Total Protein 6.3 gm/dL (5.7-8.2); eGFR 49 See Note
== END | disposition home or self-care (01) ==
LOC: COPL 08:06
PROVIDERS: PCP Internal Medicine; Referring Provider Urology; Visit Provider Urology
DX: N40.1 Benign prostatic hyperplasia with lower urinary tract symptoms (principal); N28.89 Other specified disorders of kidney and ureter
CPT/HCPCS: 36415; 80053; 85025; 85610; 85730

== ENCOUNTER → 2024-11-15 | Outpatient (BNVA) | payer MEDICARE, BC, SELFPAY | END | disposition home or self-care (01) | PROVIDERS: PCP Internal Medicine; Referring Provider Internal Medicine; Visit Provider Urology | DX: N40.1 Benign prostatic hyperplasia with lower urinary tract symptoms (principal); N13.8 Other obstructive and reflux uropathy; Z46.6 Encounter for fitting and adjustment of urinary device; E11.9 Type 2 diabetes mellitus without complications; I10 Essential (primary) hypertension; Z80.42 Family history of malignant neoplasm of prostate; E78.00 Pure hypercholesterolemia, unspecified; G47.30 Sleep apnea, unspecified | CPT/HCPCS: 99212; G0463 ==

== ENCOUNTER → 2024-11-29 | Outpatient (CLI) | payer MEDICARE, BC, SELFPAY ==
--- NOTE | 2024-11-29 16:15 | XR_ITS ---
Examination: Ultrasound Liver Elastography Date and time: November 29, 2024 1624 hours INDICATIONS: Significant hepatomegaly, fatty infiltration throughout the liver diagnosis, mild to moderate liver fibrosis on ultrasound study August 12, 2024 TECHNIQUE AND FINDINGS: Sonographic images liver Significant hepatomegaly 21.4 cm Tissues stiffness average 1.2 m/s in the normal to mild liver fibrosis stage IMPRESSION: Significant hepatomegaly Mild to moderate liver fibrosis
== END | disposition home or self-care (01) ==
PROVIDERS: PCP Internal Medicine; Referring Provider Internal Medicine Hematology & Oncology; Visit Provider Internal Medicine Hematology & Oncology
DX: R16.0 Hepatomegaly, not elsewhere classified (principal); K74.00 Hepatic fibrosis, unspecified
CPT/HCPCS: 76981

== ENCOUNTER → 2024-12-08 | Outpatient (CLI) | payer MEDICARE, BC, SELFPAY ==
[2024-12-08 09:54] LABS: Glucose Estimated Average 123 mg/dL (80-131); Hemoglobin A1C 5.9 % Hgb (4.8-6.0)
[2024-12-08 10:03] LABS: Alanine Aminotransferase 11 U/L (10-49); Albumin, Serum 4.5 gm/dL (3.4-4.8); Albumin/Globulin Ratio 2.4 (1.2-2.2); Alkaline Phosphatase 91 U/L (46-116); Anion Gap 10 (7-16); Aspartate Amino Transferase 19 U/L (0-34); BUN/Creatinine Ratio 19 Ratio (12-20); Bilirubin,Total 0.5 mg/dL (0.3-1.2); Blood Urea Nitrogen 23 mg/dL (9-23); Calcium 9.8 mg/dL (8.3-10.6); Calcium (Corrected) 9.8 mg/dL (8.5-10.1); Carbon Dioxide 25.8 mMol/L (20.0-31.0); Chloride 106 mMol/L (98-107); Creatinine (Component) 1.2 mg/dL (0.6-1.3); Globulin 1.9 gm/dL (2.3-3.5); Glucose 104 mg/dL (74-106); Osmolality,Calculated 286 (275-295); Potassium 4.2 mMol/L (3.4-5.1); Sodium 142 mMol/L (136-145); Total Protein 6.4 gm/dL (5.7-8.2); Uric Acid 8.4 mg/dL (3.7-9.2); eGFR > 60 See Note
[2024-12-08 10:48] LABS: Creatinine MALB Rnd Ur 78 mg/dL (30-125); Microalbumin Creat Ratio 60 mg/gCrea (<30); Microalbumin, Random Urine 47 mg/L (0-300)
== END | disposition home or self-care (01) ==
LOC: COPL 08:48
PROVIDERS: PCP Internal Medicine; Referring Provider Internal Medicine; Visit Provider Internal Medicine
DX: N17.9 Acute kidney failure, unspecified (principal); E11.65 Type 2 diabetes mellitus with hyperglycemia
CPT/HCPCS: 36415; 80053; 82043; 82570; 83036; 84550

== ENCOUNTER → 2025-02-23 | Outpatient (CLI) | payer MEDICARE, BC, SELFPAY | END | disposition home or self-care (01) | LOC: SLDO 08:07 | PROVIDERS: Referring Provider Urology; Visit Provider Urology | DX: N40.1 Benign prostatic hyperplasia with lower urinary tract symptoms (principal) | CPT/HCPCS: 87086 ==

== ENCOUNTER → 2025-03-07 | Outpatient (BNVA) | payer MEDICARE, BC, SELFPAY | END | disposition home or self-care (01) | PROVIDERS: PCP Internal Medicine; Referring Provider Internal Medicine; Visit Provider Urology | DX: R32 Unspecified urinary incontinence (principal); C61 Malignant neoplasm of prostate; I10 Essential (primary) hypertension; E11.9 Type 2 diabetes mellitus without complications; Z79.84 Long term (current) use of oral hypoglycemic drugs; Z90.79 Acquired absence of other genital organ(s) | CPT/HCPCS: 81003; 99212; G0463 ==